=== PATIENT | male | born 1940 | race Caucasian/White ===

== ENCOUNTER 2018-05-04 09:05 | Outpatient (CLI) | payer MEDICARE, OTHER | END 2018-05-04 09:06 | disposition critical access hospital (66) | LOC: EMS 09:05 | PROVIDERS: ATTEND Surgery | DX: R53.1 Weakness (principal); R26.81 Unsteadiness on feet | CPT/HCPCS: A0425; A0429 ==

== ENCOUNTER 2018-05-04 09:19 | Inpatient (IN) | payer MEDICARE, OTHER ==
[2018-05-04] MEDS ORDERED: CARBIDOPA/LEVODOPA 25 MG/250 MG TABLET PO STA (10:15)
[2018-05-04] MEDS ORDERED: SODIUM CHLORIDE 0.9% 1,000 ML IV ONE (10:15)
--- NOTE | 2018-05-04 10:22 | ED Physician Documentation ---
History of Present Illness - Stated complaint Stated Complaint: AMS - Chief complaint Chief Complaint: General - History obtained from History obtained from: Patient, EMS - History of Present Illness Timing: How many days ago (5) - Additonal information Additional information: 77 year old male has Parkinson's and has recently been started on amantadine. He had some improvement in his symptoms with that and he started that about 1 month ago. He does not feel otherwise ill but he is not able to move around very well and had take the ambulance to the hospital today. History from the indicates he has not been feeling well for about one week and is now confused as well. Review of Systems Constitutional: denies: Fever, Chills Eyes: denies: Decreased vision Ears: denies: Ear pain Nose: denies: Rhinorrhea / runny nose, Congestion Throat: denies: Sore throat Cardiac: denies: Chest pain / pressure, Palpitations Respiratory: denies: Dyspnea, Cough GI: denies: Abdominal Pain, Nausea, Vomiting, Constipation, Diarrhea : denies: Dysuria, Frequency Skin: denies: Rash Musculoskeletal: denies: Neck pain, Back pain, Extremity pain Neurologic: reports: Generalized weakness. denies: Focal weakness, Numbness PD PAST MEDICAL HISTORY - Past Medical History Past Medical History: Yes Neuro: Parkinson's Endocrine/Autoimmune: Type 2 diabetes - Past Surgical History Past Surgical History: Yes General: Other - Present Medications Home Medications: Ambulatory Orders Medication Instructions Recorded Confirmed Amantadine HCl [Amantadine] 100 mg PO BID 05/04/18 05/04/18 Atorvastatin Calcium 40 mg PO DAILY 05/04/18 05/04/18 Insulin Glargine [Lantus Solostar] 9 units SQ DAILY 05/04/18 05/04/18 Insulin Lispro Protamin/Lispro 05/04/18 [Humalog Mix 75-25 Kwikpen] Methimazole [Tapazole] 20 mg PO BID 05/04/18 05/04/18 Valsartan 160 mg PO BID 05/04/18 05/04/18 metFORMIN [Glucophage] 500 mg PO BID 05/04/18 05/04/18 - Allergies Allergies/Adverse Reactions: Allergies Allergy/AdvReac Type Severity Reaction Status Date / Time No Known Drug Allergies Allergy Verified 05/04/18 09:29 - Social History Does the pt smoke?: No Smoking Status: Former smoker Does the pt drink ETOH?: No Does the pt have substance abuse?: No - Immunizations Immunizations are current?: Yes PD ED PE NORMAL - Vitals Vital signs reviewed: Yes (febrile and hypertensive ) - General General: Alert and oriented X 3, Well developed/nourished, Other (masked facies of parkinson's ) - HEENT HEENT: Atraumatic, PERRL, EOMI, Ears normal, Other (parched mucous membranes. ) - Neck Neck: Supple, no meningeal sign, No bony TTP - Cardiac Cardiac: RRR, Other (2/6 holosystolic murmer at LSB) - Respiratory Respiratory: No respiratory distress, Other (diminished breath sounds to right base. ) - Back Back: No CVA TTP, No spinal TTP - Derm Derm: Normal color, Warm and dry, No rash - Extremities Extremities: No deformity, No edema - Neuro Neuro: Alert and oriented X 3, corrective therapist 2-12 intact, No motor deficit, No sensory deficit, Normal speech, Other (There is obvious muscle rigidity consistent with Parkinson's. The finger to thumb is faster on the rigth. ) Eye Opening: Spontaneous Motor: Obeys Commands Verbal: Oriented GCS Score: 15 - Psych Psych: Normal mood, Normal affect Results - Vitals Vitals: Vital Signs - 24 hr 05/04/18 05/04/18 05/04/18 09:21 09:46 10:27 Temperature 37.6 C H Heart Rate 88 88 82 Respiratory 16 28 H 26 H Rate Blood Pressure 138/61 H 105/91 H 127/58 L O2 Saturation 96 96 97 Oxygen O2 Source Room air - EKG (time done) 1137 Rate: Rate (enter#) (80) Rhythm: NSR, LAE [place]: LAD Intervals: Prolonged [place] Ischemia: Q waves Compare to prior EKG: Old EKG unavailable Computer interpretation: Agree with computer - Labs Labs: Laboratory Tests 05/04/18 05/04/18 05/04/18 10:25 10:25 10:25 WBC 10.5 RBC 4.79 Hgb 15.9 Hct 46.2 MCV 96.4 H MCH 33.3 H MCHC 34.5 RDW 14.1 Plt Count 135 MPV 7.3 L Neut # (Auto) 9.4 H Lymph # (Auto) 0.4 L [place] # (Auto) 0.7 Eos # (Auto) 0.0 Baso # (Auto) 0.0 Absolute Nucleated RBC 0.00 Nucleated RBC % 0.0 Sodium 129 L Potassium 3.6 Chloride 101 Carbon Dioxide 21 Anion Gap 7.0 BUN 22 H Creatinine 0.8 Estimated GFR (MDRD) 94 Glucose 183 H Calcium 8.5 Total Bilirubin 1.3 H AST 40 ALT 54 Alkaline Phosphatase 63 Troponin I 0.09 Total Protein 7.1 Albumin 3.5 Globulin 3.6 Albumin/Globulin Ratio 1.0 Lipase 17 L - Rads (name of study) 2 veiw chest Radiology: Prelim report reviewed (Impression: 1. Minimal streaky opacity is in the bilateral lung bases with low lung planes, most consistent with solid segmental atelectasis. Early pneumonia or aspiration cannot be completely excluded. 2. trace pleural effusion seen on the lateral image, probably right- sided. 3. mild cardiomegaly.), EMP read indepedently, See rad report Procedures - IVC sono (time) 1010 Bedside IVC sono: IVC measures (cm) (0.97), IVC collapsed c insp (cm) (complete) , Dehydration (est 1.5-2 liter deficit) PD MEDICAL DECISION MAKING - ED course Complexity details: reviewed old records, reviewed results, re-evaluated patient , considered differential, d/w patient, d/w family ED course: 77-year-old male with a history of Parkinson's disease recently starting treatment has had an increase in his symptoms of dysmotility and he appears ill with a fever today and bibasilar infiltrate. He is administered a dose of Sinemet here in the emergency department with some improvement in his animation of movement but he is still a bit confused and has pneumonia. I have asked Dr. Meyer to put him into the hospital and he has graciously agreed to care for the patient - Sepsis Event Vital Signs: Vital Signs - 24 hr 05/04/18 05/04/18 05/04/18 09:21 09:46 10:27 Temperature 37.6 C H Heart Rate 88 88 82 Respiratory 16 28 H 26 H Rate Blood Pressure 138/61 H 105/91 H 127/58 L O2 Saturation 96 96 97 Oxygen O2 Source Room air Departure - Departure Disposition: [facility] DC/Xfer Clinical Impression: Parkinson's disease Pneumonia Qualifiers: Pneumonia type: due to unspecified organism Laterality: bilateral Lung location : lower lobe of lung Qualified Code(s): J18.1 - Lobar pneumonia, unspecified organism Condition: Fair
[2018-05-04 10:30] LABS: BASOPHILS % (AUTO) 0.2 %; EOSINOPHILS % (AUTO) 0.1 %; HGB - HEMOGLOBIN 15.9 g/dL (14.0-18.0); LYMPHOCYTES # (AUTO) 0.4 10^3/uL (1.5-3.5); LYMPHOCYTES % (AUTO) 3.9 %; MEAN CORPUSCULAR HEMOGLOBIN 33.3 pg (27.0-31.0); MEAN CORPUSCULAR HGB CONC 34.5 g/dL (32.0-36.0); MEAN CORPUSCULAR VOLUME 96.4 fL (80.0-94.0); MEAN PLATELET VOLUME 7.3 fL (7.4-11.4); MONOCYTES # (AUTO) 0.7 10^3/uL (0.0-1.0); MONOCYTES % (AUTO) 6.8 %; NEUTROPHILS # (AUTO) 9.4 10^3/uL (1.5-6.6); PLT - PLATELET COUNT 135 10^3/uL (130-450); RED BLOOD COUNT 4.79 10^6/uL (4.70-6.10); RED CELL DISTRIBUTION WIDTH 14.1 % (12.0-15.0); WHITE BLOOD COUNT 10.5 x10^3/uL (4.8-10.8)
[2018-05-04 10:43] LABS: ALBUMIN 3.5 g/dL (3.2-5.5); BILIRUBIN,TOTAL 1.3 mg/dL (0.2-1.0); CALCIUM 8.5 mg/dL (8.5-10.3); CREATININE 0.8 mg/dL (0.6-1.2); TOTAL PROTEIN 7.1 g/dL (6.7-8.2)
--- NOTE | 2018-05-04 11:21 | XRAY Report ---
Procedure Date: 05/04/2018 Accession Number: [id number] / [id number] Procedure: XR - Chest 2 View X-Ray CPT Code: 60712 FULL RESULT: EXAM: CHEST RADIOGRAPHY EXAM DATE: 05/04/2018 11:05 AM. CLINICAL HISTORY: Decreased air movement right base. COMPARISON: None. TECHNIQUE: 2 views. FINDINGS: Lungs/Pleura: There are minimal streaky opacities at the bilateral lung bases. There is a trace pleural effusion visible on the lateral image, probably right sided. There is a prominent accessory azygos fissure. No pneumothorax. Lung volumes are slightly low. Mediastinum: There is mild enlargement of the cardiomediastinal silhouette. Other: No acute osseous abnormality. There are mild degenerative disk changes the thoracic spine. IMPRESSION: 1. Minimal streaky opacities in the bilateral lung bases with low lung planes, most consistent with subsegmental atelectasis. Early pneumonia or aspiration cannot be completely excluded. 2. Trace pleural effusion seen on the lateral image, probably right-sided. 3. Mild cardiomegaly. RADIA
[2018-05-04] MEDS ORDERED: cefTRIAXone 1 GM in SODIUM CHLORIDE 0.9% MINIBAG 100 ML IV STA (11:51)
[2018-05-04] MEDS ORDERED: AZITHROMYCIN INJ 500 MG in SODIUM CHLORIDE 0.9% 250 ML IV STA (11:51)
[2018-05-04] MEDS ORDERED: PROCHLORPERAZINE 10 MG/2 ML VIAL IVP PRN (11:54)
[2018-05-04] MEDS ORDERED: ACETAMINOPHEN 325 MG TABLET PO PRN (11:54)
[2018-05-04] MEDS ORDERED: IBUPROFEN 400 MG TABLET PO PRN (11:54)
[2018-05-04] MEDS ORDERED: ONDANSETRON 4 MG/2 ML VIAL IVP PRN (11:54)
[2018-05-04] MEDS ORDERED: PROMETHAZINE 25 MG/1 ML VIAL IM PRN (11:54)
[2018-05-04] MEDS ORDERED: SODIUM CHLORIDE FLUSH 0.9% 10 ML SYRINGE IVP PRN (11:54)
[2018-05-04] MEDS ORDERED: IPRATROPIUM/ALBUTEROL 3 ML NEB INH PRN (11:54)
--- NOTE | 2018-05-04 12:05 | HISTORY & PHYSICAL EXAMINATION ---
Chief Complaint - Chief Complaint Chief Complaint: Confusion and weakness History of Present Illness - Admitted From Admitted From:: Emergency Department - History Obtained From Records Reviewed: Yes History obtained from: Patient and patients Exam Limitations: Patient confused and slow to answer looks to his for many answers - History of Present Illness HPI Comment/Other: Patient is a 77-year-old gentleman with a past medical history significant for insulin-dependent diabetes, hyperthyroidism secondary to Graves' disease, Parkinson's disease recently started on treatment 3-4 months ago, hypertension, hyperlipidemia and history of congestive heart failure who presented to the emergency department with a chief complaint of confusion and weakness. Patient was more alert and awake when I spoke with him however most of the history was provided by the patient's as the patient looked to his for answers to many of the questions that I asked him. The patient's states that the patient was in his normal state of health until 2 days ago. She states that normally the patient goes for a 45 minute walk every day however 2 days ago he did not get up and go for his normal walk. She states that she thought it may just be because it was so hot however she noticed that he was having difficulties standing up and she also noted that as the day progressed he was becoming increasingly confused. She states that in the evening when she would ask him a question he seemed to just stare at her blankly without answering. She thought that maybe with some sleep he would be better in the morning. She states that when they woke up this morning the patient continued to have confusion and had become less alert. She states that he was so weak that she could not get him up out of bed. At this point she decided to call 911. She states that when paramedics arrived 2 of them had to help him up out of bed when normally he is completely independent. She also states that the patient has had decreased appetite and decreased fluid intake over the last 2 days. The patient himself states that he did have a fever and has been having a mild cough the last couple of days. The patient denies any shortness of breath, chest pain, orthopnea, PND, increased lower extremity swelling. The patient does admit to having a runny nose last few days. Patient denies any headaches, blurred vision, sore throat, nasal congestion, difficulty swallowing, chills, palpitations, abdominal pain, nausea, vomiting, diarrhea, constipation, urinary urgency, urinary frequency, dysuria, joint pain , muscle aches, joint swelling, back pain, neck stiffness, recent unintentional weight loss, hair loss, skin rash or any focal neurologic deficits. On presentation to the emergency department the patient had a low-grade fever of 37.6 and initially remainder vital signs were within normal limits. However while patient was in the emergency department the patient's blood pressure did drop to 105/91 and patient became tachypneic and remained tachypneic during his time in the emergency department. The patient's blood pressure did improve. The patient remained on room air with good oxygen saturation. The patient's lab work revealed a sodium of 129 and a troponin of 0.09. The patient did not have any leukocytosis and urine analysis was negative. The patient's glucose was elevated at 183. The patient underwent a chest x-ray which revealed streaky opacities in bilateral lung bases concerning for early pneumonia. The patient's EKG showed normal sinus rhythm with Q waves in the inferior leads. In the emergency room the patient initially appeared to be very weak and poorly responsive. He was also very tremulous and showing signs of parkinsonism as he was very rigid. The patient was treated in the emergency department with 1 L of IV fluid, IV ceftriaxone and IV azithromycin for pneumonia as well as Sinemet for Parkinson's. The patient had significant improvement when he was in the emergency department and was admitted [facility] the [facility] for treatment of community-acquired pneumonia. History - Past Medical History Cardiovascular: reports: Congestive heart failure, Hypertension, High cholesterol Neuro: reports: Parkinson's Endocrine/Autoimmune: reports: Type 2 diabetes, HyPERthyroidism (Graves Disease) MRSA Hx?: No - Past Surgical History General: reports: Other - Family & Social History Family History: Mother: , Diabetes, Type 2, Father: , Brother: Diabetes, Type 2 Living arrangement: At home Living Situation: With spouse/s.o. 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 He is and him and his moved to [place], [place] about 32 years ago and moved to [place], [place] 13 years ago. The patient is retired. He and his have one son who lives in [place]. Recently the patient has developed Parkinson's which has slowed him down otherwise the patient was fully independent. His uses a wheelchair. The patient quit smoking 30 years ago prior to that he smoked 2 packs per day for almost 25 years. The patient is a former drinker but no longer drinks alcohol. He denies any illicit drug use. - POLST Patient has POLST: No POLST Status: Full Code Meds/Allgy - Home Medications Home Medications: Ambulatory Orders Medication Instructions Recorded Confirmed Amantadine HCl [Amantadine] 100 mg PO BID 05/04/18 05/04/18 Aspirin [Aspirin EC] 81 mg PO DAILY 05/04/18 05/04/18 Atorvastatin Calcium 40 mg PO DAILY 05/04/18 05/04/18 C,E,Zinc,Copper 11/Bnitg2g/Lut 1 each PO DAILY 05/04/18 05/04/18 [Ocuvite Adult 50 Plus Softgel] Insulin Glargine [Lantus Solostar] 9 units SQ DAILY 05/04/18 05/04/18 Insulin Lispro Protamin/Lispro 05/04/18 [Humalog Mix 75-25 Kwikpen] Methimazole [Tapazole] 20 mg PO BID 05/04/18 05/04/18 Multivitamin [Theragran] 1 each PO DAILY 05/04/18 05/04/18 Valsartan 160 mg PO BID 05/04/18 05/04/18 metFORMIN [Glucophage] 500 mg PO BID 05/04/18 05/04/18 - Allergies Allergies/Adverse Reactions: Allergies Allergy/AdvReac Type Severity Reaction Status Date / Time No Known Drug Allergies Allergy Verified 05/04/18 09:29 Review of Systems - Other Findings Other Findings: A comprehensive review of systems was performed the pertinent positives and negatives are stated above in the HPI and the remainder of the review of systems is negative. Exam - Vital Signs Reviewed Vital Signs: Yes Vital Signs: Vital Signs x48h Temp Pulse Resp BP Pulse Ox 05/04/18 12:02 85 30 H 128/61 97 05/04/18 10:27 82 26 H 127/58 L 97 05/04/18 09:46 88 28 H 105/91 H 96 05/04/18 09:21 37.6 C H 88 16 138/61 H 96 - Physical Exam General Appearance: positive: Alert, Mild distress (Tachypnic), Other (Mild tremor, appears a little rigid, blank stare at times.) Eyes Bilateral: positive: Normal inspection, PERRL, EOMI, No lid inflammation, Conjunctivae nml, No scleral icterus ENT: positive: ENT inspection nml, Pharynx nml, Dry mucous membranes. negative : Purulent nasal drainage, Pharyngeal erythema, Oral lesions Neck: positive: Nml inspection, Thyroid nml, No JVD, Trachea midline. negative : Thyromegaly, Lymphadenopathy (R), Lymphadenopathy (L), Stiff neck, Carotid bruit, Tracheal deviation Respiratory: positive: Chest non-tender, Rhonchi (Bases), Other (Tachypnic) Cardiovascular: positive: Regular rate & rhythm, No gallop, Systolic murmur Peripheral Pulses: positive: 2+ Abdomen: positive: Non-tender, No organomegaly, Nml bowel sounds, No distention. negative: Guarding, Rebound, Hepatomegaly Back: positive: Nml inspection. negative: CVA tenderness (R), CVA tenderness (L ) Skin: positive: Color nml, No rash, Warm. negative: Cyanosis, Diaphoresis, Pallor, Skin rash Extremities: positive: Non-tender, Nml appearance, No pedal edema, Other (Cog wheel rigidity) Neurologic/Psychiatric: positive: CN's nml (2-12), Motor nml, Sensation nml, Disoriented to place, Other (Tremor of upper extremities) Conclusion/Plan - Problem List (1) CAP (community acquired pneumonia) Conclusion/Plan: Patient presented with generalized weakness and altered level of consciousness. The patient had a low-grade fever on presentation and was tachypneic in the emergency department. On chest x-ray patient was found to have a bibasilar pneumonia and is being admitted for community-acquired pneumonia. The patient' s pneumonia severity index score is 116 which puts him at a risk class IV with a 8.2-9.3% mortality and based on the score hospitalization is recommended. Plan: Admit to the [facility] IV ceftriaxone and azithromycin Supplemental oxygen as needed Duo nebs as needed IV fluids Qualifiers: Laterality: unspecified laterality Qualified Code(s): J18.9 - Pneumonia, unspecified organism (2) Metabolic encephalopathy Conclusion/Plan: While at home and on initial presentation to the emergency department the patient had a decreased level of consciousness and was confused according to the . The patient did seem to have some improvement with IV fluids and IV antibiotics in the emergency department. Likely the patient has metabolic encephalopathy secondary to ongoing pneumonia. This will likely continue to improve and resolve with treatment of pneumonia and hydration. (3) Generalized weakness Conclusion/Plan: According to the patient's the patient went from baseline being ambulatory and walking 45 minutes a day to being unable to get up out of his bed on his own over the course of 2 days. This generalized weakness is likely secondary to his ongoing infection with pneumonia. There may also be some role from the patient's Parkinson's. For now we will treat the patient's pneumonia with IV antibiotics and IV fluids and monitor to see how patient responds. The patient will also be continued on his Parkinson's medications. The patient was given Sinemet in the emergency department and did seem to have some response to this. If the patient does continue to display parkinsonian type symptoms then we will need to consider adding Sinemet to his Parkinson's regimen. Plan: IV fluids IV antibiotics PT consult Continue Parkinson's meds (4) Hyponatremia Conclusion/Plan: Patient presented to the emergency department with generalized weakness and confusion. According to the patient's he has had decreased appetite and decreased fluid intake over the last few days. The patient has also been taking furosemide for recent diagnosis of CHF. On presentation the patient is hyponatremic with a sodium of 129. Patient appears to have hypovolemic hyponatremia and will be given IV fluids and we will monitor the patient's sodium. (5) Insulin dependent type 2 diabetes mellitus Conclusion/Plan: Patient has history of diabetes and is on insulin. On presentation the patient's blood glucose is elevated at 183. Plan: We will hold the patient's metformin while he is hospitalized We will continue him on his home dose of Lantus 9 units Patient be placed on sliding scale insulin Patient will be placed on a diabetic diet We will check a blood glucose before meals at bedtime Check hemoglobin A1c (6) Hypertension Conclusion/Plan: Patient has a history of hypertension and on presentation the patient's blood pressure was within normal limits but then patient did become mildly hypotensive in the emergency department. Given that the patient has ongoing infection and appears to be dehydrated we will hold his antihypertensive medications for now. We will continue to monitor the patient's blood pressure and titrate him back on to antihypertensives as needed. Qualifiers: Hypertension type: essential hypertension Qualified Code(s): I10 - Essential (primary) hypertension (7) Parkinson's disease Conclusion/Plan: The patient does have history of Parkinson's and has been on medications for the last 3-4 months. At home the patient takes amantadine but is not on Sinemet. On presentation to the emergency department the patient was showing significant symptoms of Parkinson's with rigidity and blank stare. The emergency room physician did give the patient 1 dose of Sinemet along with IV fluids and antibiotics the patient did have improvement in his symptoms. It is unclear if this was secondary to the Sinemet or if it was from the antibiotics and IV limits. For now the patient will continue to be treated with his home dose of amantadine. We will have a PT consult and continue to monitor the patient. The patient will likely need to follow-up as an outpatient for further management. (8) Hyperthyroidism Conclusion/Plan: The patient has a history of Graves' disease and takes methimazole at home. While the patient is hospitalized we will continue him on his home dose of methimazole. We will also check a TSH. (9) Hyperlipidemia Conclusion/Plan: Patient is a history of hyperlipidemia and will be continued on Lipitor while he is hospitalized. Qualifiers: Hyperlipidemia type: unspecified Qualified Code(s): E78.5 - Hyperlipidemia , unspecified - Lab Results Lab results reviewed: Yes Octavio Bones: 05/04/18 10:25 05/04/18 10:25 - Diagnostic Imaging Results Diagnostic Imaging Results: positive: Final report reviewed Diagnostic Imaging Results Comments: Chest x-ray Impression: 1. Minimal streaky opacities in the bilateral lung bases with low lung planes, most consistent with sub-segmental atelectasis. Early pneumonia or aspiration cannot be completely excluded. 2. Trace pleural effusion seen on the lateral image, probably right-sided. 3. Mild cardiomegaly - EKG Results EKG Interpreted Independently: Yes Core Measures - Anticipated LOS I expect patient to be DC'd or transferred within 96 hours.: Yes - DVT/VTE - Prophylaxis VTE/DVT Prophylaxis med ordered at admit?: Yes
[2018-05-04 13:29] LABS: BILIRUBIN,URINE NEGATIVE (NEGATIVE); CLARITY,URINE CLEAR (CLEAR); GLUCOSE, URINE (UA) 100 mg/dL (NEGATIVE); KETONES,URINE (UA) 15 mg/dL (NEGATIVE); LEUKOCYTE ESTERASE, URINE NEGATIVE (NEGATIVE); NITRITE,URINE NEGATIVE (NEGATIVE); OCCULT BLOOD,URINE MODERATE (NEGATIVE); PROTEIN,URINE TRACE mg/dL (NEGATIVE); UROBILINOGEN,URINE 0.2 (NORMAL) E.U./dL (NORMAL)
[2018-05-04 13:53] LABS: BACTERIA,URINE Rare /HPF (None Seen); RBC,URINE 0-5 /HPF (0-5); SQUAMOUS EPITHELIAL CELL,UR NONE SEEN (<= Few)
[2018-05-04] MEDS: SODIUM CHLORIDE 0.9% 1,000 ML IV SCH (14:10)
[2018-05-04] MEDS: SODIUM CHLORIDE FLUSH 0.9% 10 ML SYRINGE IVP SCH (15:41)
[2018-05-04] MEDS: SACCHAROMYCES BOULARDII 250 MG CAPSULE PO SCH (17:28)
[2018-05-04] MEDS: INSULIN ASPART 300 UNIT/3 ML PEN SUBQ SCH ×2 (17:28→21:24)
[2018-05-04] MEDS: AMANTADINE 100 MG CAPSULE PO SCH (21:24)
[2018-05-04] MEDS: ATORVASTATIN 40 MG TABLET PO SCH (21:24)
[2018-05-04] MEDS: methIMAzole 5 MG TABLET PO SCH (21:24)
[2018-05-05] MEDS: SODIUM CHLORIDE 0.9% 1,000 ML IV SCH (00:09)
[2018-05-05] MEDS: SODIUM CHLORIDE FLUSH 0.9% 10 ML SYRINGE IVP SCH ×3 (00:12→17:23)
[2018-05-05 05:47] LABS: BASOPHILS % (AUTO) 0.3 %; EOSINOPHILS % (AUTO) 0.3 %; HGB - HEMOGLOBIN 14.9 g/dL (14.0-18.0); LYMPHOCYTES # (AUTO) 0.5 10^3/uL (1.5-3.5); LYMPHOCYTES % (AUTO) 8.5 %; MEAN CORPUSCULAR HEMOGLOBIN 33.9 pg (27.0-31.0); MEAN CORPUSCULAR VOLUME 99.8 fL (80.0-94.0); MEAN PLATELET VOLUME 7.5 fL (7.4-11.4); MONOCYTES # (AUTO) 0.6 10^3/uL (0.0-1.0); MONOCYTES % (AUTO) 10.5 %; NEUTROPHILS % (AUTO) 80.4 %; PLT - PLATELET COUNT 112 10^3/uL (130-450); RED BLOOD COUNT 4.39 10^6/uL (4.70-6.10); RED CELL DISTRIBUTION WIDTH 14.2 % (12.0-15.0); WHITE BLOOD COUNT 6.2 x10^3/uL (4.8-10.8)
[2018-05-05 05:51] LABS: CALCIUM 7.7 mg/dL (8.5-10.3); CREATININE 0.8 mg/dL (0.6-1.2)
[2018-05-05 06:27] LABS: HB2 TOTAL 16.2 g/dL; HEMOGLOBIN A1C 0.76 g/dL; HEMOGLOBIN A1C % 6.4 % (4.6-6.2)
[2018-05-05] MEDS: POLYETHYLENE GLYCOL 3350 17 GM PACKET PO SCH (07:54)
[2018-05-05] MEDS: AMANTADINE 100 MG CAPSULE PO SCH ×2 (08:47→22:17)
[2018-05-05] MEDS: methIMAzole 5 MG TABLET PO SCH ×2 (08:47→22:17)
[2018-05-05] MEDS: SACCHAROMYCES BOULARDII 250 MG CAPSULE PO SCH ×2 (08:48→17:24)
[2018-05-05] MEDS: ENOXAPARIN 40 MG/0.4 ML SYRINGE SUBQ SCH (08:48)
[2018-05-05] MEDS: FAMOTIDINE 20 MG TABLET PO SCH (08:48)
[2018-05-05] MEDS: INSULIN GLARGINE 300 UNIT/3 ML PEN SUBQ SCH (08:48)
[2018-05-05] MEDS: INSULIN ASPART 300 UNIT/3 ML PEN SUBQ SCH ×4 (08:49→22:17)
[2018-05-05] MEDS: AZITHROMYCIN INJ 500 MG in SODIUM CHLORIDE 0.9% 250 ML IV SCH (08:50)
[2018-05-05] MEDS: cefTRIAXone 2 GM in SODIUM CHLORIDE 0.9% MINIBAG 100 ML IV SCH (10:05)
--- NOTE | 2018-05-05 16:42 | PROVIDER PROGRESS NOTE ---
Assessment/Plan - Problem List (1) CAP (community acquired pneumonia) Qualifiers: Laterality: unspecified laterality Qualified Code(s): J18.9 - Pneumonia, unspecified organism Assessment/Plan: No sputum was produced to collect for microbiology, before antibiotics were started and cough has diminished. Continue empiric iv Ceftriaxone and iv Zithromax. Follow WBC. (2) Generalized weakness Assessment/Plan: Improved, Pt was able to get OOB with stand-by assistance today. Continue hydration and treatment of pneumonia. (3) Insulin dependent type 2 diabetes mellitus Assessment/Plan: Continue carb-controlled diet, POC glu checks and ss Insulin and off Glucophage while here. (4) Parkinson's disease Assessment/Plan: Continue anti-Parkinson's meds. (5) CHF due to valvular disease Assessment/Plan: Echo done today shows a hyperdynamic LVEF of 70% and severe mitral regurgitation and MVP is seen. The patient and both tell me that he has been seen by a Property Field Inspector and is scheduled to have cardiac catheterization in early May and possibly what sounds like a Celina-Clip procedure, in [place]. Will resume the ARB but at a lower dose, since his BP is not hypertensive and low BP may have added to the weakness. (6) Hyperthyroidism Assessment/Plan: Continue anti-thyroid med (Tapazole). (7) Hyponatremia Assessment/Plan: Resolved with NS iv fluid and stopping diuretic. (8) Metabolic encephalopathy Assessment/Plan: Resolved. It was likely due to infection. - Current Meds Current Meds: Current Medications Generic Name Dose Route Start Last Admin Trade Name Freq PRN Reason Stop Dose Admin Acetaminophen 650 mg 05/04/18 11:54 05/04/18 21:23 Tylenol PO 650 mg Q4HR PRN Administration Pain 1 to 4 Amantadine HCl 100 mg 05/04/18 21:00 05/05/18 08:47 Symmetrel PO 100 mg BID ERIN Administration Atorvastatin Calcium 40 mg 05/04/18 21:00 05/04/18 21:24 Lipitor PO 40 mg QPM ERIN Administration Enoxaparin Sodium 40 mg 05/05/18 09:00 05/05/18 08:48 Lovenox SUBQ 40 mg DAILY ERIN Administration Famotidine 20 mg 05/05/18 09:00 05/05/18 08:48 Pepcid PO 20 mg DAILY ERIN Administration Azithromycin 500 mg/ Sodium 250 mls @ 250 mls/hr 05/05/18 09:00 05/05/18 10: 05 Chloride IV Infused DAILY ERIN Infusion Ceftriaxone Sodium 2 gm/ 100 mls @ 200 mls/hr 05/05/18 09:00 05/05/18 10:35 Sodium Chloride IV Infused DAILY ERIN Infusion Ibuprofen 400 mg 05/04/18 11:54 05/04/18 22:48 Motrin PO 400 mg Q4HR PRN Administration Pain 1 to 4 Insulin Aspart 1 - 5 unit 05/04/18 17:00 05/05/18 12:03 Novolog SUBQ 2 unit 0800,1200,1700,2100 ERIN Administration Protocol Insulin Glargine 9 unit 05/05/18 08:00 05/05/18 08:48 Lantus Solostar SUBQ 9 unit QDBREAKFAST ERIN Administration Methimazole 20 mg 05/04/18 21:00 05/05/18 08:47 Tapazole PO 20 mg BID ERIN Administration Polyethylene Glycol 17 gm 05/05/18 09:00 05/05/18 07:54 Miralax PO Not Given DAILY ERIN Saccharomyces Boulardii 250 mg 05/04/18 17:00 05/05/18 08:48 Florastor PO 250 mg BIDWM ERIN Administration Sodium Chloride 10 ml 05/04/18 17:00 05/05/18 07:16 Normal Saline Flush 0.9% IVP Not Given 0100,0900,1700 ERIN - Lab Result Fish Bone Diagrams: 05/05/18 05:14 05/05/18 05:14 Subjective - Subjective Patient Reports: Feeling Better, Resting Comfortably Objective Vital Signs: Vital Signs - 24 hr 05/04/18 05/04/18 05/05/18 21:18 22:05 00:00 Temperature 38.2 C H 37.9 C H 36.9 C Heart Rate Heart Rate [ 95 Apical] Heart Rate [ 73 Brachial] Heart Rate [ Sitting] Heart Rate [ Supine] Respiratory 20 18 Rate Blood Pressure 129/67 106/54 L [Right Brachial artery] Blood Pressure [Sitting] Blood Pressure [Supine] O2 Saturation 99 98 05/05/18 05/05/18 05/05/18 08:43 10:30 15:31 Temperature 36.7 C 36.6 C Heart Rate Heart Rate [ Apical] Heart Rate [ 79 94 Brachial] Heart Rate [ 85 Sitting] Heart Rate [ 80 Supine] Respiratory 18 24 Rate Blood Pressure 113/49 L 143/66 H [Right Brachial artery] Blood Pressure 123/89 H [Sitting] Blood Pressure 111/55 L [Supine] O2 Saturation 99 98 05/05/18 16:31 Temperature Heart Rate 76 Heart Rate [ Apical] Heart Rate [ Brachial] Heart Rate [ Sitting] Heart Rate [ Supine] Respiratory 18 Rate Blood Pressure [Right Brachial artery] Blood Pressure [Sitting] Blood Pressure [Supine] O2 Saturation Oxygen O2 Source Room air I&O (Last 24 Hrs): Intake and Output Totals x24h 05/03/18 05/04/18 05/05/18 23:59 23:59 23:59 Intake Total 1800 2788.333 Output Total 250 675 Balance 1550 2113.333 General: Oriented x3 HEENT: Mucous membr. moist/pink Neck: Supple, No JVD Neuro: Other (Flat affect, hands tremulous, body stiff) Cardiovascular: Regular rate, Other (Harsh 3/6 pansystolic murmur at apex, radiates throughout precordium. No gallop) Abdomen: Normal bowel sounds, Soft Extremities: No edema - Results Results: Laboratory Results WBC 6.2 x10^3/uL (4.8-10.8) 05/05/18 05:14 RBC 4.39 10^6/uL (4.70-6.10) L 05/05/18 05:14 Hgb 14.9 g/dL (14.0-18.0) 05/05/18 05:14 Hct 43.8 % (42.0-52.0) 05/05/18 05:14 MCV 99.8 fL (80.0-94.0) H 05/05/18 05:14 MCH 33.9 pg (27.0-31.0) H 05/05/18 05:14 MCHC 34.0 g/dL (32.0-36.0) 05/05/18 05:14 RDW 14.2 % (12.0-15.0) 05/05/18 05:14 Plt Count 112 10^3/uL (130-450) L 05/05/18 05:14 MPV 7.5 fL (7.4-11.4) 05/05/18 05:14 Neut # (Auto) 5.0 10^3/uL (1.5-6.6) 05/05/18 05:14 Lymph # (Auto) 0.5 10^3/uL (1.5-3.5) L 05/05/18 05:14 [place] # (Auto) 0.6 10^3/uL (0.0-1.0) 05/05/18 05:14 Eos # (Auto) 0.0 10^3/uL (0.0-0.7) 05/05/18 05:14 Baso # (Auto) 0.0 10^3/uL (0.0-0.1) 05/05/18 05:14 Absolute Nucleated RBC 0.00 x10^3/uL 05/05/18 05:14 Nucleated RBC % 0.1 /100WBC 05/05/18 05:14 Sodium 135 mmol/L (135-145) 05/05/18 05:14 Potassium 3.9 mmol/L (3.5-5.0) 05/05/18 05:14 Chloride 104 mmol/L (101-111) 05/05/18 05:14 Carbon Dioxide 25 mmol/L (21-32) 05/05/18 05:14 Anion Gap 6.0 (6-13) 05/05/18 05:14 BUN 21 mg/dL (6-20) H 05/05/18 05:14 Creatinine 0.8 mg/dL (0.6-1.2) 05/05/18 05:14 Estimated GFR (MDRD) 94 (>89) 05/05/18 05:14 Glucose 167 mg/dL (70-100) H 05/05/18 05:14 POC Whole Bld Glucose 204 mg/dL (70 - 100) H 05/05/18 11:35 Glycated Hemoglobin 6.4 % (4.6-6.2) H 05/05/18 05:14 Estim Average Glucose 137 (70-100) H 05/05/18 05:14 Calcium 7.7 mg/dL (8.5-10.3) L 05/05/18 05:14 Total Bilirubin 1.3 mg/dL (0.2-1.0) H 05/04/18 10:25 AST 40 IU/L (10-42) 05/04/18 10:25 ALT 54 IU/L (10-60) 05/04/18 10:25 Alkaline Phosphatase 63 IU/L (42-121) 05/04/18 10:25 Troponin I 0.09 ng/mL (<0.49) 05/04/18 10:25 Total Protein 7.1 g/dL (6.7-8.2) 05/04/18 10:25 Albumin 3.5 g/dL (3.2-5.5) 05/04/18 10:25 Globulin 3.6 g/dL (2.1-4.2) 05/04/18 10:25 Albumin/Globulin Ratio 1.0 (1.0-2.2) 05/04/18 10:25 Lipase 17 U/L (22-51) L 05/04/18 10:25 TSH 0.18 uIU/mL (0.34-5.60) L 05/05/18 05:14 Urine Color YELLOW 05/04/18 13:00 Urine Clarity CLEAR (CLEAR) 05/04/18 13:00 Urine pH 6.0 PH (5.0-7.5) 05/04/18 13:00 Ur Specific [place] >=1.030 (1.002-1.030) H 05/04/18 13:00 Urine Protein TRACE mg/dL (NEGATIVE) 05/04/18 13:00 Urine Glucose (UA) 100 mg/dL (NEGATIVE) H 05/04/18 13:00 Urine Ketones 15 mg/dL (NEGATIVE) H 05/04/18 13:00 Urine Occult Blood MODERATE (NEGATIVE) H 05/04/18 13:00 Urine Nitrite NEGATIVE (NEGATIVE) 05/04/18 13:00 Urine Bilirubin NEGATIVE (NEGATIVE) 05/04/18 13:00 Urine Urobilinogen 0.2 (NORMAL) E.U./dL (NORMAL) 05/04/18 13:00 Ur Leukocyte Esterase NEGATIVE (NEGATIVE) 05/04/18 13:00 Urine RBC 0-5 /HPF (0-5) 05/04/18 13:00 Urine WBC 0-3 /HPF (0-3) 05/04/18 13:00 Ur Squamous Epith Cells NONE SEEN (<= Few) 05/04/18 13:00 Urine Bacteria Rare /HPF (None Seen) 05/04/18 13:00 Ur Microscopic Review INDICATED 05/04/18 13:00 Urine Culture Comments NOT INDICATED 05/04/18 13:00
[2018-05-05] MEDS ORDERED: VALSARTAN 160 MG PO SCH (21:00)
[2018-05-05] MEDS: ATORVASTATIN 40 MG TABLET PO SCH (22:17)
[2018-05-06 05:29] LABS: CALCIUM 7.8 mg/dL (8.5-10.3); CREATININE 0.8 mg/dL (0.6-1.2)
[2018-05-06 05:30] LABS: BASOPHILS % (AUTO) 0.3 %; EOSINOPHILS % (AUTO) 0.1 %; HGB - HEMOGLOBIN 15.6 g/dL (14.0-18.0); LYMPHOCYTES % (AUTO) 13.3 %; MEAN CORPUSCULAR HEMOGLOBIN 33.2 pg (27.0-31.0); MEAN CORPUSCULAR HGB CONC 33.9 g/dL (32.0-36.0); MEAN CORPUSCULAR VOLUME 97.9 fL (80.0-94.0); MEAN PLATELET VOLUME 7.9 fL (7.4-11.4); MONOCYTES # (AUTO) 0.8 10^3/uL (0.0-1.0); NEUTROPHILS # (AUTO) 5.5 10^3/uL (1.5-6.6); NEUTROPHILS % (AUTO) 75.3 %; PLT - PLATELET COUNT 131 10^3/uL (130-450); RED BLOOD COUNT 4.71 10^6/uL (4.70-6.10); RED CELL DISTRIBUTION WIDTH 14.3 % (12.0-15.0); WHITE BLOOD COUNT 7.2 x10^3/uL (4.8-10.8)
[2018-05-06] MEDS: SODIUM CHLORIDE FLUSH 0.9% 10 ML SYRINGE IVP SCH ×4 (07:16→23:58)
[2018-05-06] MEDS: INSULIN ASPART 300 UNIT/3 ML PEN SUBQ SCH ×4 (08:14→20:36)
[2018-05-06] MEDS: INSULIN GLARGINE 300 UNIT/3 ML PEN SUBQ SCH (08:14)
[2018-05-06] MEDS: MULTIVITAMIN TABLET PO SCH (09:50)
[2018-05-06] MEDS: SACCHAROMYCES BOULARDII 250 MG CAPSULE PO SCH ×2 (09:50→16:12)
[2018-05-06] MEDS: FAMOTIDINE 20 MG TABLET PO SCH (09:50)
[2018-05-06] MEDS: methIMAzole 5 MG TABLET PO SCH ×2 (09:50→20:35)
[2018-05-06] MEDS: ASPIRIN EC 81 MG TABLET PO SCH (09:50)
[2018-05-06] MEDS: AMANTADINE 100 MG CAPSULE PO SCH ×2 (09:50→20:35)
[2018-05-06] MEDS: LOSARTAN 50 MG TABLET PO SCH (09:50)
[2018-05-06] MEDS: cefTRIAXone 2 GM in SODIUM CHLORIDE 0.9% MINIBAG 100 ML IV SCH (09:51)
[2018-05-06] MEDS: ENOXAPARIN 40 MG/0.4 ML SYRINGE SUBQ SCH (09:51)
[2018-05-06] MEDS: POLYETHYLENE GLYCOL 3350 17 GM PACKET PO SCH (09:52)
[2018-05-06] MEDS: AZITHROMYCIN INJ 500 MG in SODIUM CHLORIDE 0.9% 250 ML IV SCH (11:00)
[2018-05-06] MEDS ORDERED: POTASSIUM CHLOR 10 MEQ/100 ML 10 MEQ/100 ML BAG IV ONE ×2 (12:15→14:15)
--- NOTE | 2018-05-06 12:47 | PROVIDER PROGRESS NOTE ---
Assessment/Plan - Problem List (1) CAP (community acquired pneumonia) Qualifiers: Laterality: unspecified laterality Qualified Code(s): J18.9 - Pneumonia, unspecified organism Assessment/Plan: RR is high and may have been abnormal yesterday, and not as charted. WBC lorraine since yesterday. Continue iv antibiotics. Will order a swallowing eval to check for asoiration and recheck a CXR. Pt not stable for DCh today. (2) CHF due to valvular disease Assessment/Plan: CXR re-check today showed more CHF. Will start daily po Spironolactone. (3) Generalized weakness Assessment/Plan: Patient is "at high risk of falls", per PT seeing the patient today. This could be residual from his infection or due to Parkinsons or due to orthostasis from autonomic dysfunction that accompanies Parkinson's disease. Will order daily postural VS checks. He may need to be DCh to a SNF for PT. (4) Insulin dependent type 2 diabetes mellitus Assessment/Plan: Continue carb-controlled diet, ss Insulin coverage for fingerstick glu checks. (5) Parkinson's disease Assessment/Plan: Continue his anti-Parkinsonian meds. Postural VS checks daily to be done to check for autonomic dysfunction, given his "high risk for falls" per PT. Will also order an OT eval. (6) Hyperthyroidism Assessment/Plan: Continue Tapazole treatment. (7) Hyponatremia Assessment/Plan: Improved after 2L of iv Normal Saline fluids since admission. Continue to monitor daily BMP. (8) Hypokalemia Assessment/Plan: This could be due to hemodilution, as 2L of NS hydration since admission. Will replace with K riders. Monitor daily BMP. (9) Metabolic encephalopathy Assessment/Plan: Resolved. - Current Meds Current Meds: Current Medications Generic Name Dose Route Start Last Admin Trade Name Freq PRN Reason Stop Dose Admin Acetaminophen 650 mg 05/04/18 11:54 05/04/18 21:23 Tylenol PO 650 mg Q4HR PRN Administration Pain 1 to 4 Amantadine HCl 100 mg 05/04/18 21:00 05/06/18 09:50 Symmetrel PO 100 mg BID ERIN Administration Aspirin 81 mg 05/06/18 09:00 05/06/18 09:50 Ecotrin PO 81 mg DAILY ERIN Administration Atorvastatin Calcium 40 mg 05/04/18 21:00 05/05/18 22:17 Lipitor PO 40 mg QPM ERIN Administration Enoxaparin Sodium 40 mg 05/05/18 09:00 05/06/18 09:51 Lovenox SUBQ 40 mg DAILY ERIN Administration Famotidine 20 mg 05/05/18 09:00 05/06/18 09:50 Pepcid PO 20 mg DAILY ERIN Administration Azithromycin 500 mg/ Sodium 250 mls @ 250 mls/hr 05/05/18 09:00 05/06/18 12: 00 Chloride IV Infused DAILY ERIN Infusion Ceftriaxone Sodium 2 gm/ 100 mls @ 200 mls/hr 05/05/18 09:00 05/06/18 11:00 Sodium Chloride IV Infused DAILY ERIN Infusion Ibuprofen 400 mg 05/04/18 11:54 05/04/18 22:48 Motrin PO 400 mg Q4HR PRN Administration Pain 1 to 4 Insulin Aspart 1 - 5 unit 05/04/18 17:00 05/06/18 12:06 Novolog SUBQ 1 unit 0800,1200,1700,2100 ERIN Administration Protocol Insulin Glargine 9 unit 05/05/18 08:00 05/06/18 08:14 Lantus Solostar SUBQ 9 unit QDBREAKFAST ERIN Administration Losartan Potassium 50 mg 05/06/18 09:00 05/06/18 09:50 Cozaar PO 50 mg DAILY ERIN Administration Methimazole 20 mg 05/04/18 21:00 05/06/18 09:50 Tapazole PO 20 mg BID ERIN Administration Multivitamins 1 tab 05/06/18 09:00 05/06/18 09:50 Theragran PO 1 tab DAILY ERIN Administration Polyethylene Glycol 17 gm 05/05/18 09:00 05/06/18 09:52 Miralax PO Not Given DAILY ERIN Saccharomyces Boulardii 250 mg 05/04/18 17:00 05/06/18 09:50 Florastor PO 250 mg BIDWM ERIN Administration Sodium Chloride 10 ml 05/04/18 17:00 05/06/18 09:52 Normal Saline Flush 0.9% IVP 10 ml 0100,0900,1700 ERIN Administration - Lab Result Fish Bone Diagrams: 05/06/18 04:40 05/06/18 04:40 - Additional Planning My Orders: My Active Orders 05/06/18 Clinical Swallow Evaluation [ST] Routine 05/06/18 09:00 Aspirin EC [Ecotrin] 81 mg PO DAILY Losartan [Cozaar] 50 mg PO DAILY Multivitamin [Theragran] 1 tab PO DAILY 05/06/18 12:15 Potassium Chlor 10 Meq/100 ml [Potassium Chloride] 10 meq in 100 ml IV ONCE 05/06/18 14:15 Potassium Chlor 10 Meq/100 ml [Potassium Chloride] 10 meq in 100 ml IV ONCE Subjective - Subjective Patient Reports: Feeling Better, Resting Comfortably Nursing Reports: Other (Still tachypneic at 30's, PT tried walking him and he is "at high risk of falls".) Objective Vital Signs: Vital Signs - 24 hr 05/05/18 05/05/18 05/05/18 15:31 16:31 22:05 Temperature 36.6 C Heart Rate 76 94 Heart Rate [ 94 Brachial] Respiratory 24 18 18 Rate Blood Pressure 143/66 H [Right Brachial artery] O2 Saturation 98 05/06/18 05/06/18 05/06/18 00:00 07:32 09:55 Temperature 37.0 C 36.6 C Heart Rate 89 Heart Rate [ 105 H 95 Brachial] Respiratory 18 19 32 H Rate Blood Pressure 156/83 H 134/67 H [Right Brachial artery] O2 Saturation 97 94 Oxygen O2 Source Room air I&O (Last 24 Hrs): Intake and Output Totals x24h 05/04/18 05/05/18 05/06/18 23:59 23:59 23:59 Intake Total 1800 3538.333 530 Output Total 250 850 125 Balance 1550 2688.333 405 General: Alert, Oriented x3, Other (Flat affect and facies) HEENT: Mucous membr. moist/pink Neck: Supple Neuro: Other (Tardykinesis, no resting hand tremor noted today.) Cardiovascular: Regular rate, Other (3/6 murmur.) Respiratory: Breath sounds nml Abdomen: Soft Extremities: No edema - Results Results: Laboratory Results WBC 7.2 x10^3/uL (4.8-10.8) 05/06/18 04:40 RBC 4.71 10^6/uL (4.70-6.10) 05/06/18 04:40 Hgb 15.6 g/dL (14.0-18.0) 05/06/18 04:40 Hct 46.1 % (42.0-52.0) 05/06/18 04:40 MCV 97.9 fL (80.0-94.0) H 05/06/18 04:40 MCH 33.2 pg (27.0-31.0) H 05/06/18 04:40 MCHC 33.9 g/dL (32.0-36.0) 05/06/18 04:40 RDW 14.3 % (12.0-15.0) 05/06/18 04:40 Plt Count 131 10^3/uL (130-450) 05/06/18 04:40 MPV 7.9 fL (7.4-11.4) 05/06/18 04:40 Neut # (Auto) 5.5 10^3/uL (1.5-6.6) 05/06/18 04:40 Lymph # (Auto) 1.0 10^3/uL (1.5-3.5) L 05/06/18 04:40 [place] # (Auto) 0.8 10^3/uL (0.0-1.0) 05/06/18 04:40 Eos # (Auto) 0.0 10^3/uL (0.0-0.7) 05/06/18 04:40 Baso # (Auto) 0.0 10^3/uL (0.0-0.1) 05/06/18 04:40 Absolute Nucleated RBC 0.00 x10^3/uL 05/06/18 04:40 Nucleated RBC % 0.0 /100WBC 05/06/18 04:40 Sodium 134 mmol/L (135-145) L 05/06/18 04:40 Potassium 3.1 mmol/L (3.5-5.0) L 05/06/18 04:40 Chloride 101 mmol/L (101-111) 05/06/18 04:40 Carbon Dioxide 23 mmol/L (21-32) 05/06/18 04:40 Anion Gap 10.0 (6-13) 05/06/18 04:40 BUN 20 mg/dL (6-20) 05/06/18 04:40 Creatinine 0.8 mg/dL (0.6-1.2) 05/06/18 04:40 Estimated GFR (MDRD) 94 (>89) 05/06/18 04:40 Glucose 151 mg/dL (70-100) H 05/06/18 04:40 POC Whole Bld Glucose 184 mg/dL (70 - 100) H 05/06/18 11:57 Glycated Hemoglobin 6.4 % (4.6-6.2) H 05/05/18 05:14 Estim Average Glucose 137 (70-100) H 05/05/18 05:14 Calcium 7.8 mg/dL (8.5-10.3) L 05/06/18 04:40 Total Bilirubin 1.3 mg/dL (0.2-1.0) H 05/04/18 10:25 AST 40 IU/L (10-42) 05/04/18 10:25 ALT 54 IU/L (10-60) 05/04/18 10:25 Alkaline Phosphatase 63 IU/L (42-121) 05/04/18 10:25 Troponin I 0.09 ng/mL (<0.49) 05/04/18 10:25 Total Protein 7.1 g/dL (6.7-8.2) 05/04/18 10:25 Albumin 3.5 g/dL (3.2-5.5) 05/04/18 10:25 Globulin 3.6 g/dL (2.1-4.2) 05/04/18 10:25 Albumin/Globulin Ratio 1.0 (1.0-2.2) 05/04/18 10:25 Lipase 17 U/L (22-51) L 05/04/18 10:25 TSH 0.18 uIU/mL (0.34-5.60) L 05/05/18 05:14 Urine Color YELLOW 05/04/18 13:00 Urine Clarity CLEAR (CLEAR) 05/04/18 13:00 Urine pH 6.0 PH (5.0-7.5) 05/04/18 13:00 Ur Specific [place] >=1.030 (1.002-1.030) H 05/04/18 13:00 Urine Protein TRACE mg/dL (NEGATIVE) 05/04/18 13:00 Urine Glucose (UA) 100 mg/dL (NEGATIVE) H 05/04/18 13:00 Urine Ketones 15 mg/dL (NEGATIVE) H 05/04/18 13:00 Urine Occult Blood MODERATE (NEGATIVE) H 05/04/18 13:00 Urine Nitrite NEGATIVE (NEGATIVE) 05/04/18 13:00 Urine Bilirubin NEGATIVE (NEGATIVE) 05/04/18 13:00 Urine Urobilinogen 0.2 (NORMAL) E.U./dL (NORMAL) 05/04/18 13:00 Ur Leukocyte Esterase NEGATIVE (NEGATIVE) 05/04/18 13:00 Urine RBC 0-5 /HPF (0-5) 05/04/18 13:00 Urine WBC 0-3 /HPF (0-3) 05/04/18 13:00 Ur Squamous Epith Cells NONE SEEN (<= Few) 05/04/18 13:00 Urine Bacteria Rare /HPF (None Seen) 05/04/18 13:00 Ur Microscopic Review INDICATED 05/04/18 13:00 Urine Culture Comments NOT INDICATED 05/04/18 13:00 ABX Reporting Has patient been on IV antibiotics over the past 48 hours?: Yes
--- NOTE | 2018-05-06 13:47 | XRAY Report ---
Procedure Date: 05/06/2018 Accession Number: [id number] / [id number] Procedure: XR - Chest 1 View X-Ray CPT Code: 91849 FULL RESULT: EXAM: Chest 1 View X-Ray DATE: 05/06/2018 1:14 PM CLINICAL HISTORY: CHF vs pneumonia COMPARISON: Chest radiograph 05/04/2018. TECHNIQUE: Single view of the chest. FINDINGS: Cardiomegaly persists. Evaluation of the mediastinal silhouette is limited by rotation and portable technique. Bibasilar opacities persist, possibly unchanged given differences in technique. These most likely represent accommodation of airspace disease and pleural effusions. IMPRESSION: Bibasilar opacities likely with components of effusion. While pneumonia in these areas is not excluded, the symmetric finding combined with cardiomegaly favors heart failure. RADIA
[2018-05-06] MEDS: SPIRONOLACTONE 25 MG TABLET PO SCH (14:53)
[2018-05-06] MEDS: ATORVASTATIN 40 MG TABLET PO SCH (20:35)
[2018-05-07 04:53] LABS: BASOPHILS % (AUTO) 0.4 %; EOSINOPHILS # (AUTO) 0.1 10^3/uL (0.0-0.7); EOSINOPHILS % (AUTO) 1.6 %; HGB - HEMOGLOBIN 15.2 g/dL (14.0-18.0); LYMPHOCYTES # (AUTO) 0.9 10^3/uL (1.5-3.5); LYMPHOCYTES % (AUTO) 15.2 %; MEAN CORPUSCULAR HEMOGLOBIN 32.9 pg (27.0-31.0); MEAN CORPUSCULAR HGB CONC 33.4 g/dL (32.0-36.0); MEAN CORPUSCULAR VOLUME 98.6 fL (80.0-94.0); MEAN PLATELET VOLUME 7.7 fL (7.4-11.4); MONOCYTES # (AUTO) 0.6 10^3/uL (0.0-1.0); MONOCYTES % (AUTO) 9.7 %; NEUTROPHILS # (AUTO) 4.4 10^3/uL (1.5-6.6); NEUTROPHILS % (AUTO) 73.1 %; PLT - PLATELET COUNT 132 10^3/uL (130-450); RED BLOOD COUNT 4.63 10^6/uL (4.70-6.10); RED CELL DISTRIBUTION WIDTH 14.3 % (12.0-15.0); WHITE BLOOD COUNT 6.1 x10^3/uL (4.8-10.8)
[2018-05-07 05:03] LABS: CALCIUM 7.7 mg/dL (8.5-10.3); CREATININE 0.8 mg/dL (0.6-1.2)
[2018-05-07] MEDS ORDERED: POTASSIUM CHLORIDE 20 MEQ TABLET PO ONE (08:16)
[2018-05-07] MEDS: INSULIN GLARGINE 300 UNIT/3 ML PEN SUBQ SCH (08:35)
[2018-05-07] MEDS: INSULIN ASPART 300 UNIT/3 ML PEN SUBQ SCH ×2 (08:36→12:49)
[2018-05-07] MEDS: AMANTADINE 100 MG CAPSULE PO SCH (08:37)
[2018-05-07] MEDS: SACCHAROMYCES BOULARDII 250 MG CAPSULE PO SCH (08:37)
[2018-05-07] MEDS: MULTIVITAMIN TABLET PO SCH (08:37)
[2018-05-07] MEDS: SPIRONOLACTONE 25 MG TABLET PO SCH (08:37)
[2018-05-07] MEDS: methIMAzole 5 MG TABLET PO SCH (08:37)
[2018-05-07] MEDS: FAMOTIDINE 20 MG TABLET PO SCH (08:37)
[2018-05-07] MEDS: LOSARTAN 50 MG TABLET PO SCH (08:37)
[2018-05-07] MEDS: AZITHROMYCIN INJ 500 MG in SODIUM CHLORIDE 0.9% 250 ML IV SCH (08:38)
[2018-05-07] MEDS: ASPIRIN EC 81 MG TABLET PO SCH (08:38)
[2018-05-07] MEDS: SODIUM CHLORIDE FLUSH 0.9% 10 ML SYRINGE IVP SCH (08:38)
[2018-05-07] MEDS: ENOXAPARIN 40 MG/0.4 ML SYRINGE SUBQ SCH (08:38)
[2018-05-07] MEDS: POLYETHYLENE GLYCOL 3350 17 GM PACKET PO SCH (08:57)
[2018-05-07] MEDS: cefTRIAXone 2 GM in SODIUM CHLORIDE 0.9% MINIBAG 100 ML IV SCH (09:47)
--- NOTE | 2018-05-07 10:52 | Discharge Plan ---
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 Notify PCP of admission and forward orders to primary provider for signature. Weight on admission and weekly. Call PCP immediately if weight increases by 5 pounds or if patient develops dyspnea, chest pain/tightness or edema. House Bowel Program: Yes If no BM after 2 days, nurse may give M.O.M. 30ml PO PRN and /or ducolax Supp 1 ID and /or KATI 250mg P.O., and/or senna 1-2 tabs PO. On day 3 nurse may give repeat above order until residents constipation is resolved. Immunizations: Annual Influenza Vaccine: yes. (between Jun 20 and January 17.) Unless allergy or already given Two-Step PPD: Yes per [facility] [phone] or appropriate documentation of approved exceptions Treatments & Other Orders: Daily PT and OT Fingerstick glu ac and hs Oxygen Orders: None Lab Tests or X-Rays Orders: BMP on 05/09/18 Orthopedic Orders: None. Medications: PLEASE REFER TO THE DISCHARGE MEDICATION LIST. Insulin Orders? Yes Diagnosis: Diabetes Initiate hypo and hyperglycemia protocols for BG <70 and BG >375. May check BG prn for signs/symptoms of dysglycemia. Frequency of BG checks: ac and hs Basal Insulin: Lantus 100 units / ml inject subq as follows: 5 U sq daily in am Correction Insulin: - Select the type of insulin below [Choose: Humalog] 100 units /ml insulin inject subq per orders indicate below X LOW DOSE [] MODERATE DOSE [] MODERATE/HIGH DOSE [] HIGH DOSE GB UNITS GB UNITS GB UNITS GB UNITS 61-140 0 UNITS 61-140 0 UNITS 61-140 0 UNITS 61-140 0 UNITS 141-175 1 UNITS 141-175 1 UNITS 141-175 2 UNITS 141-175 3 UNITS 176-225 2 UNITS 176-225 3 UNITS 176-225 4 UNITS 176-225 5 UNITS 226-275 3 UNITS 226-275 5 UNITS 226-275 6 UNITS 226-275 7 UNITS 276-325 4 UNITS 276-325 7 UNITS 276-325 8 UNITS 276-325 9 UNITS 326-375 5 UNITS 326-375 9 UNITS 326-375 10 UNITS 326-375 11 UNITS >375 CONTACT MD >375 CONTACT MD >375 CONTACT MD >375 CONTACT MD Allergies and Adverse Reactions: Allergies Allergy/AdvReac Type Severity Reaction Status Date / Time No Known Drug Allergies Allergy Verified 05/04/18 09:29 - Medications New Prescriptions: Amoxicillin 875 mg PO BID #6 tablet Azithromycin [Zithromax] 500 mg PO DAILY #6 Saccharomyces Boulardii [Florastor] 250 mg PO BID #8 capsule Spironolactone [Aldactone] 25 mg PO DAILY #30 tablet - Diet Type: Diabetic, 4 carb choices +1 evening snack Texture: Mech soft Liquids: Thin May have monthly special meal: Yes - Therapies | Activity Therapy: Evaluation | Treat if indicated: PT, OT Rehabilitation Potential: Maximize functional status Activity: Activity as Tolerated Weight Bearing: Full Weight"
[2018-05-07] MEDS ORDERED: INSULIN ASPART 300 UNIT/3 ML PEN SUBQ SCH (12:00)
[2018-05-07 15:29] VITALS: BP 102/50
--- NOTE | 2018-05-08 06:57 | DISCHARGE SUMMARY ---
Physician: Mandy Han MD DATE OF ADMISSION: 05/04/2018 DATE OF DISCHARGE: 05/07/2018 HISTORY OF PRESENT ILLNESS: This is a 77-year-old white male with a history of insulin-dependent diabetes, Parkinson's started on treatment only one month ago , hypertension, hyperlipidemia, who was noted to be febrile and altered mental status with confusion and severe weakness and anorexia, brought to the emergency room and found to have bibasilar pneumonia. He was admitted for community-acquired pneumonia and weakness. HOSPITAL COURSE AND DISCHARGE DIAGNOSES 1. Community-acquired pneumonia, bilateral, aspiration ruled out. The patient was started on empiric IV ceftriaxone and IV Zithromax. He did not bring up a sputum sample for culture. He was continued on these medications and had a repeat chest x- ray two days into his course, which showed similar pneumonia, but worsening vascular congestion. At discharge, his IV antibiotics were changed to amoxicillin 875 mg p.o. b.i.d. for an additional three days and Zithromax 500 mg daily for an additional three days along with Florastor 250 b.i.d. for an additional four days. 2. Insulin-dependent diabetes. The patient's Glucophage was discontinued while here in order to avoid any renal insufficiency for imaging with dye. He was placed on a carb-controlled diet and sliding scale insulin. At the time of transfer, he had glucoses between 170 and 250. He was transferred back on half of his usual amount of Lantus insulin and with a sliding scale insulin coverage, but Glucophage was resumed. 3. Parkinson's disease, on treatment for only one month. The patient had marked weakness, flat affect, stiffness, resting tremor of his hands only and very poor gait when he was tested by physical therapy. He was felt to have a high fall risk. There was slow improvement in daily therapy with PT and he was felt to be a candidate for SNF for physical therapy and occupational therapy to improve his status. He lives with his who is wheelchair bound, and therefore it was important for him to have maximization of ADLs before returning home. His Parkinson's medications were continued throughout his course, but a second agent was not added, because he had only been on this one for one month. Further medication adjustments should be done as an outpatient. 4. Hyperthyroidism from a history of Graves disease. The patient is on treatment for this, which was continued throughout his course. TSH was measured at 0.18. 5. Congestive heart failure due to valvular disease with a preserved left ventricular ejection fraction. The patient has a harsh 3/6 systolic murmur in the mitral area and reported that he had severe mitral regurgitation with plan for intervention to be done in [place] in early May. An Echo was done here that showed a preserved LVEF of 70% and mitral valve prolapse with severe mitral regurgitation. When the patient had vascular congestion seen on chest x-ray on Day #3, he was started on Spironolactone 25 mg p.o. daily and discharged with this new medication to the SNF. 6. Hypertension. The patient's medications were continued throughout his course. 7. Hyperlipidemia. The patient's medications were continued throughout his course. 8. Weakness. This was felt to be due to his infection of pneumonia plus his Parkinson's disease. He was felt to have rehabilitation potential and was sent to SNF after discharge here. LABORATORY AND IMAGING: Reviewed and summarized above. ALLERGIES: NONE. MEDICATIONS AT TIME OF DISCHARGE 1. Lantus insulin 4 units subcutaneous in the morning. 2. Sliding scale insulin coverage low-dose format. 3. Glucophage 500 mg b.i.d. 4. Tylenol 650 mg p.r.n. pain or fever. 5. Amantadine 100 mg b.i.d. 6. Amoxicillin 875 mg b.i.d. for three more days. 7. Zithromax 500 mg daily for three more days. 8. Baby aspirin daily. 9. Lipitor 40 mg every p.m. 10. Multivitamin with trace metals daily. 11. Tapazole 20 mg b.i.d. 12. Multivitamin daily. 13. Florastor 250 mg b.i.d. for four more days. 14. Spironolactone 25 mg daily. 15. Valsartan 160 mg daily. CONDITION AT DISCHARGE: Fair. PHYSICAL EXAMINATION AT DISCHARGE VITAL SIGNS: Blood pressure 102-125/50-60, heart rate 82 in sinus rhythm, afebrile, room air saturation 97%. HEENT: Oral mucosa moist and poor dentition with only one tooth in the upper jaw. Flat affect. NECK: Without JVD or carotid bruits. CHEST: Diminished breath sounds at both bases, but no rales. HEART: Soft. S1, S2 and a 3/6 pansystolic murmur heard at the apex radiating throughout the precordium. No gallop or RV heave. ABDOMEN: Soft with normal bowel sounds. EXTREMITIES: Without clubbing, cyanosis, or edema. NEUROLOGIC: Poor gait, poor balance, truncal weakness. Resting tremor of the right hand, mostly at rest. Flat affect. CODE STATUS: FULL CODE. FOLLOWUP: This will be determined after his stay at [facility]. The patient does have planned Cardiology appointment in early May for management of his mitral regurgitation with a presumed MitraClip. Time required to complete this entire discharge, chart review, SNF orders, and dictation: 60 minutes. TD: 05/07/2018 18:25 TONY
== END 2018-05-07 16:05 | DRG 193 ==
LOC: ED 09:19 → MS3 11:54
PROVIDERS: ADMIT Internal Medicine; ATTEND Internal Medicine
DX: J18.1 Lobar pneumonia, unspecified organism (principal); J18.9 Pneumonia, unspecified organism; E86.0 Dehydration; G93.41 Metabolic encephalopathy; I50.30 Unspecified diastolic (congestive) heart failure; E87.1 Hypo-osmolality and hyponatremia; G20 Parkinson's disease; E87.6 Hypokalemia; I95.9 Hypotension, unspecified; E05.00 Thyrotoxicosis with diffuse goiter without thyrotoxic crisis or storm; I11.0 Hypertensive heart disease with heart failure; I34.1 Nonrheumatic mitral (valve) prolapse; I34.0 Nonrheumatic mitral (valve) insufficiency; E11.9 Type 2 diabetes mellitus without complications; E78.5 Hyperlipidemia, unspecified; Z91.81 History of falling; Z79.899 Other long term (current) drug therapy; Z79.4 Long term (current) use of insulin; Z87.891 Personal history of nicotine dependence; Z79.82 Long term (current) use of aspirin
CPT/HCPCS: 36415; 71045; 71046; 80048; 80053; 81001; 81003; 83036; 83690; 83880; 84443; 84484; 85025; 87086; 93005; 93306; 96360; 99284; 99285

== ENCOUNTER 2018-05-11 07:30 | Outpatient (CLI) | payer MEDICARE, OTHER ==
[2018-05-11 13:38] LABS: BASOPHILS % (AUTO) 0.5 %; EOSINOPHILS # (AUTO) 0.4 10^3/uL (0.0-0.7); EOSINOPHILS % (AUTO) 3.9 %; HGB - HEMOGLOBIN 14.8 g/dL (14.0-18.0); LYMPHOCYTES # (AUTO) 0.8 10^3/uL (1.5-3.5); LYMPHOCYTES % (AUTO) 8.2 %; MEAN CORPUSCULAR HEMOGLOBIN 33.4 pg (27.0-31.0); MEAN CORPUSCULAR HGB CONC 34.2 g/dL (32.0-36.0); MEAN CORPUSCULAR VOLUME 97.7 fL (80.0-94.0); MONOCYTES # (AUTO) 0.6 10^3/uL (0.0-1.0); MONOCYTES % (AUTO) 5.8 %; NEUTROPHILS % (AUTO) 81.6 %; PLT - PLATELET COUNT 195 10^3/uL (130-450); RED BLOOD COUNT 4.44 10^6/uL (4.70-6.10); RED CELL DISTRIBUTION WIDTH 14.4 % (12.0-15.0); WHITE BLOOD COUNT 9.8 x10^3/uL (4.8-10.8)
[2018-05-11 13:42] LABS: CALCIUM 8.6 mg/dL (8.5-10.3); CREATININE 0.7 mg/dL (0.6-1.2)
== END 2018-05-11 07:31 | disposition home or self-care (01) ==
LOC: LAB.R 07:30
DX: E05.00 Thyrotoxicosis with diffuse goiter without thyrotoxic crisis or storm (principal); J18.9 Pneumonia, unspecified organism
CPT/HCPCS: 80048; 85025

== ENCOUNTER 2019-07-24 13:54 | Outpatient (CLI) | payer MEDICARE, OTHER ==
[2019-07-24 14:54] LABS: CREATININE 0.8 mg/dL (0.6-1.2)
[2019-07-24 15:00] LABS: CALCIUM 9.1 mg/dL (8.5-10.3)
== END 2019-07-24 13:55 | disposition home or self-care (01) ==
LOC: LAB 13:54
PROVIDERS: ATTEND Internal Medicine Cardiovascular Disease
DX: E87.6 Hypokalemia (principal)
CPT/HCPCS: 36415; 80048

== ENCOUNTER 2021-04-16 16:36 | Outpatient (CLI) | payer MEDICARE, OTHER | END 2021-04-16 16:37 | disposition home or self-care (01) | LOC: COV 16:36 | PROVIDERS: ATTEND Internal Medicine Interventional Cardiology | DX: Z01.812 Encounter for preprocedural laboratory examination (principal); Z20.822 Contact with and (suspected) exposure to COVID-19 ==

== ENCOUNTER 2021-08-20 11:47 | Outpatient (CLI) | payer MEDICARE, OTHER | END 2021-08-20 11:48 | disposition EMS.NT | LOC: EMS 11:47 | DX: S01.81XA Laceration without foreign body of other part of head, initial encounter (principal); W18.39XA Other fall on same level, initial encounter; Y92.008 Other place in unspecified non-institutional (private) residence as the place of occurrence of the external cause ==

== ENCOUNTER 2022-02-21 09:56 | Outpatient (CLI) | payer MEDICARE, OTHER ==
[2022-02-21 10:19] LABS: BASOPHILS # (AUTO) 0.1 10^3/uL (0.0-0.1); BASOPHILS % (AUTO) 0.5 %; EOSINOPHILS # (AUTO) 0.3 10^3/uL (0.0-0.7); HCT - HEMATOCRIT 32.7 % (42.0-52.0); HGB - HEMOGLOBIN 10.5 g/dL (14.0-18.0); LYMPHOCYTES % (AUTO) 18.3 %; MEAN CORPUSCULAR HEMOGLOBIN 33.8 pg (27.0-31.0); MEAN CORPUSCULAR HGB CONC 32.1 g/dL (32.0-36.0); MEAN CORPUSCULAR VOLUME 105.1 fL (80.0-94.0); MEAN PLATELET VOLUME 9.2 fL (7.4-11.4); MONOCYTES # (AUTO) 1.2 10^3/uL (0.0-1.0); MONOCYTES % (AUTO) 10.4 %; NEUTROPHILS # (AUTO) 7.5 10^3/uL (1.5-6.6); NEUTROPHILS % (AUTO) 67.4 %; PLT - PLATELET COUNT 260 10^3/uL (130-450); RED BLOOD COUNT 3.11 10^6/uL (4.70-6.10); RED CELL DISTRIBUTION WIDTH 13.6 % (12.0-15.0); WHITE BLOOD COUNT 11.1 x10^3/uL (4.8-10.8)
[2022-02-21 10:30] LABS: BUN - BLOOD UREA NITROGEN 22 mg/dL (6-20); CALCIUM 9.2 mg/dL (8.5-10.3); CARBON DIOXIDE - CO2 25 mmol/L (21-32); CHLORIDE 105 mmol/L (101-111); CHOL/HDL RATIO 2.7 (<5.0); CHOLESTEROL 123 mg/dL; CREATININE 0.9 mg/dL (0.6-1.2); GFR - MDRD 81 (>89); GLUCOSE 201 mg/dL (70-100); HDL CHOLESTEROL 46 mg/dL; LDL CHOLESTEROL,CALCULATED 52 mg/dL; LDL/HDL RATIO 1.1 (<3.6); POTASSIUM 4.1 mmol/L (3.5-5.0); SODIUM 140 mmol/L (135-145); TRIGLYCERIDES 123 mg/dL; VLDL CHOLESTEROL 25 mg/dL
== END 2022-02-21 09:57 | disposition home or self-care (01) ==
LOC: LAB 09:56
PROVIDERS: ATTEND Internal Medicine Cardiovascular Disease
DX: I10 Essential (primary) hypertension (principal); E78.2 Mixed hyperlipidemia
CPT/HCPCS: 36415; 80048; 80061; 83721; 85025

== ENCOUNTER 2022-06-13 12:58 | Inpatient (IN) | payer MEDICARE, OTHER ==
[2022-06-13] MEDS ORDERED: SODIUM CHLORIDE 0.9% 1,000 ML IV STA ×2 (13:04→14:50)
[2022-06-13 13:18] LABS: BASOPHILS % (AUTO) 0.3 %; EOSINOPHILS # (AUTO) 0.1 10^3/uL (0.0-0.7); EOSINOPHILS % (AUTO) 0.6 %; HCT - HEMATOCRIT 21.5 % (42.0-52.0); LYMPHOCYTES # (AUTO) 1.3 10^3/uL (1.5-3.5); LYMPHOCYTES % (AUTO) 11.7 %; MEAN CORPUSCULAR HEMOGLOBIN 22.7 pg (27.0-31.0); MEAN CORPUSCULAR HGB CONC 29.3 g/dL (32.0-36.0); MEAN CORPUSCULAR VOLUME 77.3 fL (80.0-94.0); MEAN PLATELET VOLUME 8.8 fL (7.4-11.4); MONOCYTES % (AUTO) 8.8 %; NEUTROPHILS # (AUTO) 8.8 10^3/uL (1.5-6.6); NEUTROPHILS % (AUTO) 78.1 %; PLT - PLATELET COUNT 441 10^3/uL (130-450); RED BLOOD COUNT 2.78 10^6/uL (4.70-6.10); RED CELL DISTRIBUTION WIDTH 16.8 % (12.0-15.0); WHITE BLOOD COUNT 11.2 x10^3/uL (4.8-10.8)
[2022-06-13 13:23] LABS: HGB - HEMOGLOBIN 6.3 g/dL (14.0-18.0)
[2022-06-13 13:30] LABS: ALBUMIN 3.1 g/dL (3.2-5.5); ALBUMIN/GLOBULIN RATIO 0.8 (1.0-2.2); BILIRUBIN,TOTAL 0.9 mg/dL (0.2-1.0); CALCIUM 8.9 mg/dL (8.5-10.3); CREATININE 1.3 mg/dL (0.6-1.2); POTASSIUM 3.5 mmol/L (3.5-5.0)
--- NOTE | 2022-06-13 14:16 | ED Physician Documentation ---
History of Present Illness - Stated complaint Stated Complaint: FOUND DOWN - Chief complaint Chief Complaint: General - History obtained from History obtained from: Patient, Family - Additonal information Additional information: The patient comes to the emergency department via EMS for chief complaint of being found down at home. The patient was last known to have gone to bed and is suspected to have been up at night trying to ambulate to the bathroom. He does not remember the event and seems to have had a syncopal episode. The patient laid on the floor for 2 days undetected by his who is wheelchair-bound. When his brother came from [place] came to visit, he found the patient laying on the floor. The patient had awakened sometime the same night of the's the fall and was aware of the passing of time. The patient and brother state that the patient has been going growing increasingly pale and increasingly weak over the last couple of weeks. He has chronic blood in his urine. He has a history of bladder cancer which at this point, he is opted not to treat any further. He is not currently on hospice or palliative care, due to his own refusal, despite family efforts to get him more help. However, he is now open to this possibility. He lives at home with his who is wheelchair-bound and has increasing needs. The patient states he wants to stay home but recognizes he needs help. The patient denies any pain in his head or neck. No back pain. No abdominal or chest pain. No hip pain. The patient was too weak to get himself off the floor. Review of Systems Ten Systems: 10 systems reviewed and negative Constitutional: reports: Fatigue Eyes: reports: Reviewed and negative Ears: reports: Reviewed and negative Nose: reports: Reviewed and negative Throat: reports: Reviewed and negative Cardiac: reports: Reviewed and negative Respiratory: reports: Reviewed and negative GI: reports: Reviewed and negative : reports: Reviewed and negative Skin: reports: Reviewed and negative Musculoskeletal: reports: Reviewed and negative Neurologic: reports: Generalized weakness, Syncope Psychiatric: reports: Reviewed and negative Endocrine: reports: Reviewed and negative Immunocompromised: reports: Reviewed and negative PD PAST MEDICAL HISTORY - Past Medical History Past Medical History: Yes Cardiovascular: Congestive heart failure, Hypertension Respiratory: None Neuro: Parkinson's Endocrine/Autoimmune: Type 2 diabetes, HyPERthyroidism : None HEENT: None Psych: None Derm: None - Past Surgical History Past Surgical History: Yes General: Other - Present Medications Home Medications: Ambulatory Orders Medication Instructions Recorded Confirmed Acetaminophen [Tylenol] 650 mg PO Q4HR PRN tablet 05/07/18 Amantadine HCl [Amantadine] 100 mg PO BID #30 05/07/18 05/04/18 Amoxicillin 875 mg PO BID #6 tablet 05/07/18 Aspirin [Aspirin EC] 81 mg PO DAILY #30 05/07/18 05/04/18 Atorvastatin Calcium 40 mg PO QPM #30 05/07/18 05/04/18 Azithromycin [Zithromax] 500 mg PO DAILY #6 05/07/18 C,E,Zinc,Copper 11/Cfcja4x/Lut 1 each PO DAILY #30 05/07/18 05/04/18 [Ocuvite Adult 50 Plus Softgel] Insulin Glargine [Lantus Solostar] 4 units SQ DAILY #0 05/07/18 05/04/18 Multivitamin [Theragran] 1 each PO DAILY #30 05/07/18 05/04/18 Saccharomyces Boulardii [Florastor] 250 mg PO BID #8 capsule 05/07/18 Spironolactone [Aldactone] 25 mg PO DAILY #30 tablet 05/07/18 Valsartan 160 mg PO DAILY #30 05/07/18 05/05/18 metFORMIN [Glucophage] 500 mg PO BID #60 05/07/18 05/04/18 methIMAzole [Tapazole] 20 mg PO BID #60 05/07/18 05/04/18 - Allergies Allergies/Adverse Reactions: Allergies Allergy/AdvReac Type Severity Reaction Status Date / Time No Known Drug Allergies Allergy Verified 06/13/22 13:10 - Social History Does the pt smoke?: No Smoking Status: Never smoker Does the pt drink ETOH?: No Does the pt have substance abuse?: No - Immunizations Immunizations are current?: Yes - POLST Patient has POLST: No POLST Status: Full Code PD ED PE NORMAL - Vitals Vital signs reviewed: Yes - General General: Alert and oriented X 3, No acute distress, Other (Emaciated man who appears older than stated age in no distress.) - HEENT HEENT: Atraumatic, PERRL, EOMI, Moist mucous membranes - Neck Neck: Supple, no meningeal sign - Cardiac Cardiac: RRR, No murmur, Strong equal pulses - Respiratory Respiratory: No respiratory distress, Clear bilaterally - Abdomen Abdomen: Soft, Non tender, Non distended - Derm Derm: Warm and dry, Other (Marked pallor) - Extremities Extremities: No deformity, No edema, No calf tenderness / cord - Neuro Neuro: Alert and oriented X 3, paint mixer machine 2-12 intact, Normal speech, Other (No gross deficits) - Psych Psych: Normal mood, Normal affect Results - Vitals Vitals: Vital Signs - 24 hr 06/13/22 06/13/22 06/13/22 13:10 13:14 15:14 Temperature 36.7 C 36.7 C Heart Rate 85 85 88 Respiratory 16 16 18 Rate Blood Pressure 116/68 116/68 170/71 H O2 Saturation 100 100 98 Oxygen O2 Source Room air - Labs Labs: Laboratory Tests 06/13/22 06/13/22 06/13/22 13:12 13:12 13:12 WBC 11.2 H RBC 2.78 L Hgb 6.3 L* Hct 21.5 L MCV 77.3 L MCH 22.7 L MCHC 29.3 L RDW 16.8 H Plt Count 441 MPV 8.8 Neut # (Auto) 8.8 H Lymph # (Auto) 1.3 L Wayne # (Auto) 1.0 Eos # (Auto) 0.1 Baso # (Auto) 0.0 Absolute Nucleated RBC 0.00 Nucleated RBC % 0.0 Sodium 141 Potassium 3.5 Chloride 105 Carbon Dioxide 25 Anion Gap 11.0 BUN 41 H Creatinine 1.3 H Estimated GFR (MDRD) 53 L Glucose 232 H Calcium 8.9 Total Bilirubin 0.9 AST 22 ALT 18 Alkaline Phosphatase 79 Total Creatine Kinase 92 Total Protein 7.0 Albumin 3.1 L Globulin 3.9 Albumin/Globulin Ratio 0.8 L Lipase 23 Urine Color Urine Clarity Urine pH Ur Specific [employer] Urine Protein Urine Glucose (UA) Urine Ketones Urine Occult Blood Urine Nitrite Urine Bilirubin Urine Urobilinogen Ur Leukocyte Esterase Urine RBC Urine WBC Ur Squamous Epith Cells Amorphous Sediment Urine Bacteria Ur Microscopic Review Urine Culture Comments Nasal Adenovirus (PCR) Nasal B. parapertussis DNA (PCR) Nasal Coronavir 229E PCR Nasal Coronavir HKU1 PCR Nasal Coronavir NL63 PCR Nasal Coronavir OC43 PCR Nasal Enterovir/Rhinovir PCR Nasal Influenza B PCR Nasal Influenza A PCR Nasal Parainfluen 1 PCR Nasal Parainfluen 2 PCR Nasal Parainfluen 3 PCR Nasal Parainfluen 4 PCR Nasal RSV (PCR) Nasal B.pertussis DNA PCR Nasal C.pneumoniae (PCR) [place] Human Metapneumo PCR Nasal M.pneumoniae (PCR) Nasal SARS-CoV-2 (PCR) Blood Type Blood Type Recheck A NEGATIVE Antibody Screen Crossmatch IS Only 06/13/22 06/13/22 06/13/22 14:42 14:42 15:08 WBC RBC Hgb Hct MCV MCH MCHC RDW Plt Count MPV Neut # (Auto) Lymph # (Auto) Wayne # (Auto) Eos # (Auto) Baso # (Auto) Absolute Nucleated RBC Nucleated RBC % Sodium Potassium Chloride Carbon Dioxide Anion Gap BUN Creatinine Estimated GFR (MDRD) Glucose Calcium Total Bilirubin AST ALT Alkaline Phosphatase Total Creatine Kinase 84 Total Protein Albumin Globulin Albumin/Globulin Ratio Lipase Urine Color RED/BLOODY Urine Clarity HAZY Urine pH 5.5 Ur Specific [employer] 1.015 Urine Protein 100 H Urine Glucose (UA) 100 H Urine Ketones TRACE Urine Occult Blood LARGE H Urine Nitrite NEGATIVE Urine Bilirubin NEGATIVE Urine Urobilinogen 0.2 (NORMAL) Ur Leukocyte Esterase TRACE H Urine RBC 11-25 H Urine WBC 6-10 H Ur Squamous Epith Cells RARE Squamous Amorphous Sediment Rare Urine Bacteria Many H Ur Microscopic Review INDICATED Urine Culture Comments INDICATED Nasal Adenovirus (PCR) Nasal B. parapertussis DNA (PCR) Nasal Coronavir 229E PCR Nasal Coronavir HKU1 PCR Nasal Coronavir NL63 PCR Nasal Coronavir OC43 PCR Nasal Enterovir/Rhinovir PCR Nasal Influenza B PCR Nasal Influenza A PCR Nasal Parainfluen 1 PCR Nasal Parainfluen 2 PCR Nasal Parainfluen 3 PCR Nasal Parainfluen 4 PCR Nasal RSV (PCR) Nasal B.pertussis DNA PCR Nasal C.pneumoniae (PCR) [place] Human Metapneumo PCR Nasal M.pneumoniae (PCR) Nasal SARS-CoV-2 (PCR) Blood Type A NEGATIVE Blood Type Recheck Antibody Screen NEGATIVE Crossmatch IS Only See Detail 06/13/22 16:03 WBC RBC Hgb Hct MCV MCH MCHC RDW Plt Count MPV Neut # (Auto) Lymph # (Auto) Wayne # (Auto) Eos # (Auto) Baso # (Auto) Absolute Nucleated RBC Nucleated RBC % Sodium Potassium Chloride Carbon Dioxide Anion Gap BUN Creatinine Estimated GFR (MDRD) Glucose Calcium Total Bilirubin AST ALT Alkaline Phosphatase Total Creatine Kinase Total Protein Albumin Globulin Albumin/Globulin Ratio Lipase Urine Color Urine Clarity Urine pH Ur Specific [employer] Urine Protein Urine Glucose (UA) Urine Ketones Urine Occult Blood Urine Nitrite Urine Bilirubin Urine Urobilinogen Ur Leukocyte Esterase Urine RBC Urine WBC Ur Squamous Epith Cells Amorphous Sediment Urine Bacteria Ur Microscopic Review Urine Culture Comments Nasal Adenovirus (PCR) NOT DETECTED Nasal B. parapertussis DNA (PCR) NOT DETECTED Nasal Coronavir 229E PCR NOT DETECTED Nasal Coronavir HKU1 PCR NOT DETECTED Nasal Coronavir NL63 PCR NOT DETECTED Nasal Coronavir OC43 PCR NOT DETECTED Nasal Enterovir/Rhinovir PCR NOT DETECTED Nasal Influenza B PCR NOT DETECTED Nasal Influenza A PCR NOT DETECTED Nasal Parainfluen 1 PCR NOT DETECTED Nasal Parainfluen 2 PCR NOT DETECTED Nasal Parainfluen 3 PCR NOT DETECTED Nasal Parainfluen 4 PCR NOT DETECTED Nasal RSV (PCR) NOT DETECTED Nasal B.pertussis DNA PCR NOT DETECTED Nasal C.pneumoniae (PCR) NOT DETECTED [place] Human Metapneumo PCR NOT DETECTED Nasal M.pneumoniae (PCR) NOT DETECTED Nasal SARS-CoV-2 (PCR) NOT DETECTED Blood Type Blood Type Recheck Antibody Screen Crossmatch IS Only - Rads (name of study) CT head Radiology: Final report received, EMP read indepedently, See rad report (Unre markable) CT C-spine Radiology: Final report received, EMP read indepedently, See rad report (Unremarkable) PD MEDICAL DECISION MAKING - ED course Complexity details: reviewed results, re-evaluated patient, considered differential, d/w patient, d/w family ED course: The patient was given 2 liters of IV fluids and worked up with labs, head and C- spine CTs, urinalysis, and EKG. CT scans were unremarkable. The patient's labs showed a hemoglobin of 6.3 which is down from nearly twice this much back in the spring. He was also found to have a urinary tract infection. Patient was treated for the urinary tract infection and I did order 2 units of blood for him. I spoke with Dr. Francisco who agreed to admit the patient to his service. Patient is also agreeable to this. Departure - Departure Disposition: 66 [facility] DC/Xfer Clinical Impression: Severe anemia, Syncope and collapse UTI (urinary tract infection) Qualifiers: Urinary tract infection type: acute cystitis Hematuria presence: with hematuria Qualified Code(s): N30.01 - Acute cystitis with hematuria Condition: Serious Discharge Date/Time: 06/13/22 17:00
--- NOTE | 2022-06-13 14:53 | CT Report ---
PROCEDURE: HEAD WO INDICATIONS: fall/syncope TECHNIQUE: Noncontrast 4.5 mm thick angled axial sections acquired from the foramen magnum to the vertex. For r adiation dose reduction, the following was used: automated exposure control, adjustment of mA and/or kV according to patient size. COMPARISON: None. FINDINGS: Image quality: Excellent. CSF spaces: Basal cisterns are patent. No extra-axial fluid collections. Ventricles are normal in size and shape. Brain: No midline shift. No intracranial masses or hemorrhage. Woods-white matter interface is norm al. Skull and face: Calvarium and visualized facial bones are intact, without suspicious lesions. Sinuses: Visualized sinuses and mastoids are clear. IMPRESSION: No evidence of acute intracranial process. Reviewed by: Goran Brady MD on 06/13/2022 2:52 PM PDT Approved by: Goran Brady MD on 06/13/2022 2:52 PM PDT Station ID: [id number]
--- NOTE | 2022-06-13 14:57 | CT Report ---
PROCEDURE: CERVICAL SPINE WO INDICATIONS: fall/head injury TECHNIQUE: Noncontrast 3 mm thick sections acquired from the skull base to the T4 level. Sagittal and coronal r eformats were then constructed. For radiation dose reduction, the following was used: automated exp osure control, adjustment of mA and/or kV according to patient size. COMPARISON: None. FINDINGS: Image quality: Excellent. Bones: No fractures or dislocations. Visualized superior ribs are intact. Severe cervical spondylit ic change with multilevel facet arthropathy. There is also multilevel severe foraminal narrowing Soft tissues: Prevertebral soft tissues are normal in thickness. No paravertebral hematomas. No ap ical pneumothoraces. Dense calcifications involving the vertebral arteries and carotid bifurcations. IMPRESSION: 1. No evidence of acute cervical fracture or dislocation. 2. Severe cervical spondylosis. 3. ASCVD. Reviewed by: Goran Brady MD on 06/13/2022 2:56 PM PDT Approved by: Goran Brady MD on 06/13/2022 2:56 PM PDT Station ID: [id number]
[2022-06-13 15:15] LABS: BILIRUBIN,URINE NEGATIVE (NEGATIVE); GLUCOSE, URINE (UA) 100 mg/dL (NEGATIVE); KETONES,URINE (UA) TRACE mg/dL (NEGATIVE); LEUKOCYTE ESTERASE, URINE TRACE (NEGATIVE); NITRITE,URINE NEGATIVE (NEGATIVE); OCCULT BLOOD,URINE LARGE (NEGATIVE); PH,URINE 5.5 PH (5.0-7.5); PROTEIN,URINE 100 mg/dL (NEGATIVE); UROBILINOGEN,URINE 0.2 (NORMAL) E.U./dL (NORMAL)
[2022-06-13 15:18] LABS: CLARITY,URINE HAZY (CLEAR)
[2022-06-13 15:36] LABS: AMORPHOUS SEDIMENT,UR Rare /LPF; BACTERIA,URINE Many /HPF (None Seen); SQUAMOUS EPITHELIAL CELL,UR RARE Squamous (<= Few)
[2022-06-13] MEDS ORDERED: cefTRIAXone 2 GM in SODIUM CHLORIDE 0.9% MINIBAG 100 ML IV STA (15:43)
[2022-06-13] MEDS ORDERED: ACETAMINOPHEN 325 MG TABLET PO PRN (16:24)
[2022-06-13] MEDS ORDERED: ONDANSETRON 4 MG/2 ML VIAL IVP PRN (16:24)
[2022-06-13] MEDS ORDERED: oxyCODONE 5 MG TABLET PO PRN (16:24)
[2022-06-13] MEDS ORDERED: SODIUM CHLORIDE FLUSH 0.9% 10 ML SYRINGE IVP PRN (16:24)
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
[2022-06-13 16:59] LABS: B. PARAPERTUSSIS- RESP PCR PAN NOT DETECTED; B. PERTUSSIS- RESP PCR PANEL NOT DETECTED; C. PNEUMONIAE- RESP PCR PANEL NOT DETECTED; CORONAVIRUS 229E-RESP PCR NOT DETECTED; CORONAVIRUS HKU1-RESP PCR NOT DETECTED; CORONAVIRUS NL63-RESP PCR NOT DETECTED; CORONAVIRUS OC43-RESP PCR NOT DETECTED; HUMAN METAPNEUMOVIRUS NOT DETECTED; INFLUENZA A- RESP PCR PANEL NOT DETECTED; INFLUENZA B - RESP PCR PANEL NOT DETECTED; M. PNEUMONIAE- RESP PCR PANEL NOT DETECTED; PARAINFLUENZA VIRUS 1 NOT DETECTED; PARAINFLUENZA VIRUS 2 NOT DETECTED; PARAINFLUENZA VIRUS 3 NOT DETECTED; PARAINFLUENZA VIRUS 4 NOT DETECTED; RHINOVIRUS/ENTEROVIRUS NOT DETECTED; RSV- RESP PCR PANEL NOT DETECTED; SARS-CoV-2 -RESP PCR PANEL NOT DETECTED
[2022-06-13] MEDS ORDERED: SODIUM CHLORIDE FLUSH 0.9% 10 ML SYRINGE IVP SCH (17:00)
[2022-06-13] MEDS ORDERED: SODIUM CHLORIDE 0.9% 1,000 ML IV SCH ×2 (17:00)
[2022-06-13] MEDS: SODIUM CHLORIDE FLUSH 0.9% 10 ML SYRINGE IVP SCH (17:48)
[2022-06-13] MEDS: INSULIN LISPRO 300 UNIT/3 ML PEN SUBQ SCH (22:02)
[2022-06-14] MEDS: SODIUM CHLORIDE FLUSH 0.9% 10 ML SYRINGE IVP SCH ×3 (00:39→17:04)
[2022-06-14] MEDS: SODIUM CHLORIDE 0.9% 1,000 ML IV SCH ×2 (00:44→13:50)
[2022-06-14 05:18] LABS: BASOPHILS % (AUTO) 0.2 %; EOSINOPHILS # (AUTO) 0.1 10^3/uL (0.0-0.7); EOSINOPHILS % (AUTO) 0.9 %; HCT - HEMATOCRIT 27.1 % (42.0-52.0); HGB - HEMOGLOBIN 8.3 g/dL (14.0-18.0); LYMPHOCYTES # (AUTO) 0.9 10^3/uL (1.5-3.5); LYMPHOCYTES % (AUTO) 7.3 %; MEAN CORPUSCULAR HEMOGLOBIN 24.3 pg (27.0-31.0); MEAN CORPUSCULAR HGB CONC 30.6 g/dL (32.0-36.0); MEAN CORPUSCULAR VOLUME 79.5 fL (80.0-94.0); MEAN PLATELET VOLUME 8.9 fL (7.4-11.4); MONOCYTES # (AUTO) 1.1 10^3/uL (0.0-1.0); MONOCYTES % (AUTO) 8.4 %; NEUTROPHILS # (AUTO) 10.7 10^3/uL (1.5-6.6); NEUTROPHILS % (AUTO) 82.7 %; NRBC ABSOLUTE COUNT (AUTO) 0.02 x10^3/uL; NUCLEATED RED BLOOD CELLS AUTO 0.2 /100WBC; PLT - PLATELET COUNT 380 10^3/uL (130-450); RED BLOOD COUNT 3.41 10^6/uL (4.70-6.10); RED CELL DISTRIBUTION WIDTH 17.2 % (12.0-15.0); WHITE BLOOD COUNT 12.9 x10^3/uL (4.8-10.8)
[2022-06-14 05:25] LABS: CALCIUM 8.2 mg/dL (8.5-10.3); CREATININE 1.1 mg/dL (0.6-1.2); POTASSIUM 3.2 mmol/L (3.5-5.0)
--- NOTE | 2022-06-14 07:46 | PROVIDER PROGRESS NOTE ---
Assessment/Plan - Problem List (1) Severe anemia Assessment/Plan: Likely due to slow hematuria related to bladder cancer. Hemoglobin admission was 6.3. After 2 units of packed red blood cell transfusion hemoglobin this morning was 8.3. Will continue to monitor. (2) UTI (urinary tract infection) Qualifiers: Urinary tract infection type: acute cystitis Hematuria presence: with hematuria Qualified Code(s): N30.01 - Acute cystitis with hematuria Assessment/Plan: White blood cell count today was 12.9 On Rocephin 1 g IV daily. Urine culture is no growth so far. IV hydration with normal saline at 75 mL/h. (4) Bladder cancer Assessment/Plan: It is reported that patient opted for no further medical or surgical intervention. Discussed with palliative care for possible consult. Was recommended that the cognitive evaluation be done. Patient scored 8 out of 30 on the cognitive eval. Based on this call it would be difficult to discuss further expectations/ Goals of care with the patient Will reassess on Friday06/17/22. We will also attempt to reach patient's son and/or for further discussion. (5) Abrasion of right elbow Qualifiers: Encounter type: initial encounter Qualified Code(s): S50.311A - Abrasion of right elbow, initial encounter Assessment/Plan: Likely due to being on the ground for 2 days. Wounds cleaned and dressed. (6) CHF due to valvular disease Assessment/Plan: Continue to hold spironolactone and valsartan while actively hydrating the patient. (7) Generalized weakness Assessment/Plan: PT/OT evaluation. Patient transfused 2 units of packed red blood cells. Underlying comorbidities which include bladder cancer contributing to weakness. (8) Hyperlipidemia Qualifiers: Hyperlipidemia type: unspecified Qualified Code(s): E78.5 - Hyperlipidemia, unspecified Assessment/Plan: On atorvastatin 40 mg p.o. every afternoon. Qualifiers: (9) Hypertension Qualifiers: Hypertension type: essential hypertension Assessment/Plan: Spironolactone and valsartan held while actively hydrating patient. 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 We will hold metformin while in the hospital. Accu-Cheks q. ACH S, sliding scale insulin. - Current Meds Current Meds: Current Medications Generic Name Dose Route Start Last Admin Trade Name Freq PRN Reason Stop Dose Admin Sodium Chloride 1,000 mls @ 75 mls/hr 06/13/22 18:30 06/14/22 00:44 Normal Saline 0.9% IV 75 mls/hr .[id number] ERIN Administration Insulin Human Lispro 1 - 9 unit 06/13/22 21:00 06/13/22 22:02 Insulin Lispro 300 Unit/3 Ml Pen SUBQ 5 unit 0800,1200,1700,2100 ERIN Administration Protocol Sodium Chloride 10 ml 06/13/22 17:00 06/14/22 00:39 Sodium Chloride Flush 0.9% 10 Ml Syringe IVP 10 ml 0100,0900,1700 ERIN Administration - Lab Result Fish Bone Diagrams: 06/14/22 04:27 06/14/22 04:27 - Additional Planning My Orders: My Active Orders 06/13/22 16:24 Activity Orders [RC] Q2HR IO [RC] IOSHIFT Initiate Bowel Care Protocol [RC] .protocol Initiate Line Care Protocol [RC] QSHIFT Initiate Personal Care Protoco [RC] .protocol Telemetry- [RC] Q4HR Vital Signs [RC] Q4HR Acetaminophen [Tylenol] 650 mg PO Q4HR PRN Ondansetron Inj [Zofran Inj] 4 mg IVP Q6HR PRN oxyCODONE [Roxicodone] 5 mg PO Q4HR PRN Code Status [OTHERS] Routine Condition of Patient [OTHERS] Routine DVT Prophylaxis [OTHERS] Routine 06/13/22 16:27 SCDs [RC] QSHIFT Evaluate and Treat OT [OT] Routine Evaluate and Treat PT [PT] Routine 06/13/22 16:57 Transfuse RBCs Leukoreduced [RC] .ONCE 06/13/22 17:00 Sodium Chloride Flush 0.9% [Normal Saline Flush 0.9%] 10 ml IVP 0100,0900,1700 06/13/22 17:06 Sodium Chloride Flush 0.9% [Normal Saline Flush 0.9%] 10 ml IVP PRN PRN 06/13/22 18:30 Sodium Chloride 0.9% [Normal Saline 0.9%] 1,000 ml IV 75 mls/hr 06/13/22 18:46 Blood Glucose Checks - Eating [RC] 0800,1200,1700,2100 Initiate Hypoglycemia Protocol [RC] .protocol 06/13/22 21:00 Insulin Lispro [Humalog Kwikpen U-100] 1 - 9 unit SUBQ 0800,1200,1700,2100 06/14/22 Breakfast Carb-controlled Diet [DIET] 06/14/22 09:00 Insulin Glargine [Lantus Solostar] 5 unit SUBQ QPM cefTRIAXone [Rocephin] 1 gm Sodium Chloride 0.9% Minibag [Normal Saline 0.9% Minibag] 100 ml IV DAILY polyethylene glycoL 3350 [Miralax] 17 gm PO DAILY 06/15/22 05:00 BMP - BASIC METABOLIC PANEL [CHEM] DAILYLAB CBC - COMP BLD CT W/AUTO DIFF [HEME] DAILYLAB 06/16/22 05:00 BMP - BASIC METABOLIC PANEL [CHEM] DAILYLAB CBC - COMP BLD CT W/AUTO DIFF [HEME] DAILYLAB 06/17/22 05:00 BMP - BASIC METABOLIC PANEL [CHEM] DAILYLAB CBC - COMP BLD CT W/AUTO DIFF [HEME] DAILYLAB 06/18/22 05:00 BMP - BASIC METABOLIC PANEL [CHEM] DAILYLAB CBC - COMP BLD CT W/AUTO DIFF [HEME] DAILYLAB Subjective - Subjective Patient Reports: Other (He was resting comfortably in bed at time of exam. He reports feeling cold.) Objective Vital Signs: Vital Signs - 24 hr 06/13/22 06/13/22 06/13/22 13:10 13:14 15:14 Temperature 36.7 C 36.7 C Heart Rate 85 85 88 Heart Rate [ Brachial] Respiratory 16 16 18 Rate Blood Pressure 116/68 116/68 170/71 H Blood Pressure [Right Brachial artery] O2 Saturation 100 100 98 06/13/22 06/13/22 06/13/22 17:00 18:19 18:34 Temperature 36.4 C L 36.3 C L 36.5 C Heart Rate Heart Rate [ 90 86 87 Brachial] Respiratory 24 18 18 Rate Blood Pressure Blood Pressure 104/53 L 117/40 L 122/76 [Right Brachial artery] O2 Saturation 100 100 100 06/13/22 06/13/22 06/13/22 21:25 21:26 21:56 Temperature 36.6 C 36.6 C 36.6 C Heart Rate Heart Rate [ 92 92 92 Brachial] Respiratory 24 24 24 Rate Blood Pressure Blood Pressure 130/50 L 130/50 L 130/50 L [Right Brachial artery] O2 Saturation 92 92 100 06/13/22 06/14/22 06/14/22 22:11 00:20 00:21 Temperature 36.6 C 36.7 C 36.7 C Heart Rate Heart Rate [ 93 93 93 Brachial] Respiratory 24 17 17 Rate Blood Pressure Blood Pressure 127/70 131/54 H 131/54 H [Right Brachial artery] O2 Saturation 100 95 95 06/14/22 06/14/22 04:50 07:44 Temperature 36.3 C L 36.6 C Heart Rate Heart Rate [ 96 87 Brachial] Respiratory 20 18 Rate Blood Pressure Blood Pressure 132/59 H 127/68 [Right Brachial artery] O2 Saturation 96 98 Oxygen O2 Source Room air I&O (Last 24 Hrs): Intake and Output Totals x24h 06/12/22 06/13/22 06/14/22 23:59 23:59 23:59 Intake Total 2685.833 450 Output Total 600 500 Balance 2085.833 -50 General: Alert, Oriented x3 HEENT: PERRLA, EOMI Neck: Supple, No JVD Neuro: Alert, Oriented Times 3 Cardiovascular: Regular rate Respiratory: Chest non-tender, No respiratory distress, Breath sounds nml Abdomen: Normal bowel sounds, Soft, No tenderness, No masses Extremities: No clubbing, No cyanosis, No edema, No tenderness/swelling Comments/Notes: Abrasions on right elbow wrist and toes. - Results Results: Laboratory Results WBC 12.9 x10^3/uL (4.8-10.8) H 06/14/22 04:27 RBC 3.41 10^6/uL (4.70-6.10) L 06/14/22 04:27 Hgb 8.3 g/dL (14.0-18.0) L 06/14/22 04:27 Hct 27.1 % (42.0-52.0) L 06/14/22 04:27 MCV 79.5 fL (80.0-94.0) L 06/14/22 04:27 MCH 24.3 pg (27.0-31.0) L 06/14/22 04:27 MCHC 30.6 g/dL (32.0-36.0) L 06/14/22 04:27 RDW 17.2 % (12.0-15.0) H 06/14/22 04:27 Plt Count 380 10^3/uL (130-450) 06/14/22 04:27 MPV 8.9 fL (7.4-11.4) 06/14/22 04:27 Neut # (Auto) 10.7 10^3/uL (1.5-6.6) H 06/14/22 04:27 Lymph # (Auto) 0.9 10^3/uL (1.5-3.5) L 06/14/22 04:27 [place] # (Auto) 1.1 10^3/uL (0.0-1.0) H 06/14/22 04:27 Eos # (Auto) 0.1 10^3/uL (0.0-0.7) 06/14/22 04:27 Baso # (Auto) 0.0 10^3/uL (0.0-0.1) 06/14/22 04:27 Absolute Nucleated RBC 0.02 x10^3/uL 06/14/22 04:27 Nucleated RBC % 0.2 /100WBC 06/14/22 04:27 Sodium 137 mmol/L (135-145) 06/14/22 04:27 Potassium 3.2 mmol/L (3.5-5.0) L 06/14/22 04:27 Chloride 106 mmol/L (101-111) 06/14/22 04:27 Carbon Dioxide 23 mmol/L (21-32) 06/14/22 04:27 Anion Gap 8.0 (6-13) 06/14/22 04:27 BUN 31 mg/dL (6-20) H 06/14/22 04:27 Creatinine 1.1 mg/dL (0.6-1.2) 06/14/22 04:27 Estimated GFR (MDRD) 64 (>89) L 06/14/22 04:27 Glucose 283 mg/dL (70-100) H 06/14/22 04:27 Calcium 8.2 mg/dL (8.5-10.3) L 06/14/22 04:27 Total Bilirubin 0.9 mg/dL (0.2-1.0) 06/13/22 13:12 AST 22 IU/L (10-42) 06/13/22 13:12 ALT 18 IU/L (10-60) 06/13/22 13:12 Alkaline Phosphatase 79 IU/L (42-121) 06/13/22 13:12 Total Creatine Kinase 84 IU/L (22-269) 06/13/22 14:42 Total Protein 7.0 g/dL (6.7-8.2) 06/13/22 13:12 Albumin 3.1 g/dL (3.2-5.5) L 06/13/22 13:12 Globulin 3.9 g/dL (2.1-4.2) 06/13/22 13:12 Albumin/Globulin Ratio 0.8 (1.0-2.2) L 06/13/22 13:12 Lipase 23 U/L (22-51) 06/13/22 13:12 Urine Color RED/BLOODY 06/13/22 15:08 Urine Clarity HAZY (CLEAR) 06/13/22 15:08 Urine pH 5.5 PH (5.0-7.5) 06/13/22 15:08 Ur Specific [place] 1.015 (1.002-1.030) 06/13/22 15:08 Urine Protein 100 mg/dL (NEGATIVE) H 06/13/22 15:08 Urine Glucose (UA) 100 mg/dL (NEGATIVE) H 06/13/22 15:08 Urine Ketones TRACE mg/dL (NEGATIVE) 06/13/22 15:08 Urine Occult Blood LARGE (NEGATIVE) H 06/13/22 15:08 Urine Nitrite NEGATIVE (NEGATIVE) 06/13/22 15:08 Urine Bilirubin NEGATIVE (NEGATIVE) 06/13/22 15:08 Urine Urobilinogen 0.2 (NORMAL) E.U./dL (NORMAL) 06/13/22 15:08 Ur Leukocyte Esterase TRACE (NEGATIVE) H 06/13/22 15:08 Urine RBC 11-25 /HPF (0-5) H 06/13/22 15:08 Urine WBC 6-10 /HPF (0-3) H 06/13/22 15:08 Ur Squamous Epith Cells RARE Squamous (<= Few) 06/13/22 15:08 Amorphous Sediment Rare /LPF 06/13/22 15:08 Urine Bacteria Many /HPF (None Seen) H 06/13/22 15:08 Ur Microscopic Review INDICATED 06/13/22 15:08 Urine Culture Comments INDICATED 06/13/22 15:08 Nasal Adenovirus (PCR) NOT DETECTED 06/13/22 16:03 Nasal B. parapertussis DNA (PCR) NOT DETECTED 06/13/22 16:03 Nasal Coronavir 229E PCR NOT DETECTED 06/13/22 16:03 Nasal Coronavir HKU1 PCR NOT DETECTED 06/13/22 16:03 Nasal Coronavir NL63 PCR NOT DETECTED 06/13/22 16:03 Nasal Coronavir OC43 PCR NOT DETECTED 06/13/22 16:03 Nasal Enterovir/Rhinovir PCR NOT DETECTED 06/13/22 16:03 Nasal Influenza B PCR NOT DETECTED 06/13/22 16:03 Nasal Influenza A PCR NOT DETECTED 06/13/22 16:03 Nasal Parainfluen 1 PCR NOT DETECTED 06/13/22 16:03 Nasal Parainfluen 2 PCR NOT DETECTED 06/13/22 16:03 Nasal Parainfluen 3 PCR NOT DETECTED 06/13/22 16:03 Nasal Parainfluen 4 PCR NOT DETECTED 06/13/22 16:03 Nasal RSV (PCR) NOT DETECTED 06/13/22 16:03 Nasal B.pertussis DNA PCR NOT DETECTED 06/13/22 16:03 Nasal C.pneumoniae (PCR) NOT DETECTED 06/13/22 16:03 [place] Human Metapneumo PCR NOT DETECTED 06/13/22 16:03 Nasal M.pneumoniae (PCR) NOT DETECTED 06/13/22 16:03 Nasal SARS-CoV-2 (PCR) NOT DETECTED 06/13/22 16:03 Blood Type A NEGATIVE 06/13/22 14:42 Blood Type Recheck A NEGATIVE 06/13/22 13:12 Antibody Screen NEGATIVE 06/13/22 14:42 Crossmatch IS Only See Detail 06/13/22 14:42 ABX Reporting Has patient been on IV antibiotics over the past 48 hours?: Yes
[2022-06-14] MEDS: INSULIN LISPRO 300 UNIT/3 ML PEN SUBQ SCH ×4 (08:10→21:02)
[2022-06-14] MEDS: INSULIN GLARGINE 300 UNIT/3 ML PEN SUBQ SCH ×2 (08:11→21:02)
[2022-06-14] MEDS: cefTRIAXone 1 GM in SODIUM CHLORIDE 0.9% MINIBAG 100 ML IV SCH (08:14)
[2022-06-14] MEDS: polyethylene glycoL 3350 17 GM PACKET PO SCH (08:14)
[2022-06-14] MEDS ORDERED: cefTRIAXone 1 GM in SODIUM CHLORIDE 0.9% MINIBAG 100 ML IV SCH (09:00)
[2022-06-14] MEDS ORDERED: AZITHROMYCIN INJ 500 MG in SODIUM CHLORIDE 0.9% 250 ML IV SCH ×4 (09:00)
--- NOTE | 2022-06-14 15:55 | PHARMACY PROGRESS NOTE ---
- Best Possible Medication History Admit Date and Time: 06/13/22 1624 Processed by: Pharmacy Medication History completed: Yes Patient Interview: Pt unable to participate Secondary Source(s): Spouse/Significant other (SPOKE WITH SPOUSE WHO HAD A [place] REGIVER HELP GO THROUGH THE MORE CURRENT BOTTLES AT HOME SINCE BOTTLES PATIENT BROUGHT MOSTLY . NOTE TORSEMIDE IN BOTTLE PT BROUGHT (WHICH PT AND STATES TO BE TAKING) IS 20MG QD. MOST RECENT PRESCRIPTION BOTTLE FROM HOME IS 10MG QD, LAST DISPENSED 05/16/22. ), Pharmacy records As the person ultimately responsible for medication therapy, providers are able to order a medication from an existing home medication list in [facility] via the "Reconcile Routine" prior to Confirmation of that medication by lab support service tech. Such practice is discouraged except when the physician, in their clinical judgment, deems that a medical need exists for a medication without regard to previous use.
[2022-06-14] MEDS ORDERED: POTASSIUM CHLORIDE 20 MEQ TABLET PO ONE (16:09)
[2022-06-15] MEDS: SODIUM CHLORIDE 0.9% 1,000 ML IV SCH ×2 (02:50→15:03)
[2022-06-15] MEDS: SODIUM CHLORIDE FLUSH 0.9% 10 ML SYRINGE IVP SCH ×3 (02:50→15:44)
[2022-06-15 06:02] LABS: BASOPHILS # (AUTO) 0.1 10^3/uL (0.0-0.1); BASOPHILS % (AUTO) 0.3 %; EOSINOPHILS # (AUTO) 0.2 10^3/uL (0.0-0.7); EOSINOPHILS % (AUTO) 1.6 %; HCT - HEMATOCRIT 26.5 % (42.0-52.0); HGB - HEMOGLOBIN 8.2 g/dL (14.0-18.0); LYMPHOCYTES # (AUTO) 1.3 10^3/uL (1.5-3.5); LYMPHOCYTES % (AUTO) 8.6 %; MEAN CORPUSCULAR HEMOGLOBIN 24.8 pg (27.0-31.0); MEAN CORPUSCULAR HGB CONC 30.9 g/dL (32.0-36.0); MEAN CORPUSCULAR VOLUME 80.1 fL (80.0-94.0); MEAN PLATELET VOLUME 8.6 fL (7.4-11.4); MONOCYTES # (AUTO) 1.3 10^3/uL (0.0-1.0); MONOCYTES % (AUTO) 8.4 %; NEUTROPHILS # (AUTO) 12.2 10^3/uL (1.5-6.6); NEUTROPHILS % (AUTO) 80.5 %; PLT - PLATELET COUNT 358 10^3/uL (130-450); RED BLOOD COUNT 3.31 10^6/uL (4.70-6.10); RED CELL DISTRIBUTION WIDTH 17.1 % (12.0-15.0); WHITE BLOOD COUNT 15.2 x10^3/uL (4.8-10.8)
[2022-06-15 06:11] LABS: CALCIUM 8.2 mg/dL (8.5-10.3); CREATININE 1.1 mg/dL (0.6-1.2); POTASSIUM 3.8 mmol/L (3.5-5.0)
--- NOTE | 2022-06-15 07:29 | PROVIDER PROGRESS NOTE ---
Assessment/Plan - Problem List (1) Severe anemia Assessment/Plan: Likely due to slow hematuria related to bladder cancer. Hemoglobin admission was 6.3. After 2 units of packed red blood cell transfusion hemoglobin this morning was 8.2. Will continue to monitor. (2) UTI (urinary tract infection) Qualifiers: Urinary tract infection type: acute cystitis Hematuria presence: with hematuria Qualified Code(s): N30.01 - Acute cystitis with hematuria Assessment/Plan: No growth on urine culture today. White blood cell count increased from 12.9 yesterday to 15 today. IV antibiotics changed. Rocephin discontinued. Vancomycin and Zosyn initiated. Blood cultures drawn earlier in the morning. Continue IV hydration with normal saline at 75 mL/h. (4) Bladder cancer Assessment/Plan: We will attempt to get more records from the primary care physician's office on 06/17/2022. It is reported that the patient opted for no further medical management. Patient's family would like further blood transfusions in the future when indicated. Will make a palliative care referral to follow in the outpatient setting. Patient scored 8 out of 30 on his cognitive eval on 06/14/2022. Will repeat cognitive eval on 06/17/2022. Patient's son was at bedside, they would like him to go to rehab once medically cleared to do so. After rehab they would like him to come back home weight more home health aide. (5) Abrasion of right elbow Qualifiers: Encounter type: initial encounter Qualified Code(s): S50.311A - Abrasion of right elbow, initial encounter Assessment/Plan: Likely due to being on the ground for 2 days. Wounds cleaned and dressed. (6) CHF due to valvular disease Assessment/Plan: Continue to hold spironolactone and valsartan while actively hydrating the patient. (7) Generalized weakness Assessment/Plan: Underlying comorbidities which include bladder cancer contributing to weakness. Patient seen by PT and OT. Recommendation for [facility] facility for re hab. Patient's son was at bedside, they would like him to go to rehab once medically cleared to do so. After rehab they would like him to come back home weight more home health aide. Referrals have been made for placement by social work. (8) Hyperlipidemia Qualifiers: Hyperlipidemia type: unspecified Qualified Code(s): E78.5 - Hyperlipidemia, unspecified Assessment/Plan: On atorvastatin 40 mg p.o. every afternoon. (9) Hypertension Qualifiers: Hypertension type: essential hypertension Assessment/Plan: Spironolactone and valsartan held while actively hydrating patient. 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 We will hold metformin while in the hospital. Accu-Cheks q. ACH S, sliding scale insulin. - Current Meds Current Meds: Current Medications Generic Name Dose Route Start Last Admin Trade Name Freq PRN Reason Stop Dose Admin Ceftriaxone Sodium 1 gm/ 100 mls @ 200 mls/hr 06/14/22 09:00 06/14/22 09:30 Sodium Chloride IV Infused DAILY ERIN Infusion Sodium Chloride 1,000 mls @ 75 mls/hr 06/13/22 18:30 06/15/22 06:55 Normal Saline 0.9% IV 0 mls/hr .[id number] ERIN Infusion Insulin Glargine 5 unit 06/14/22 09:00 06/14/22 21:02 Insulin Glargine 300 Unit/3 Ml Pen SUBQ 5 unit QPM ERIN Administration Insulin Human Lispro 1 - 9 unit 06/13/22 21:00 06/14/22 21:02 Insulin Lispro 300 Unit/3 Ml Pen SUBQ 3 unit 0800,1200,1700,2100 ERIN Administration Protocol Polyethylene Glycol 17 gm 06/14/22 09:00 06/14/22 08:14 Polyethylene Glycol 3350 17 Gm Packet PO 17 gm DAILY ERIN Administration Sodium Chloride 10 ml 06/13/22 17:00 06/15/22 02:50 Sodium Chloride Flush 0.9% 10 Ml Syringe IVP Not Given 0100,0900,1700 ERIN - Lab Result Fish Bone Diagrams: 06/15/22 05:38 06/15/22 05:38 - Additional Planning My Orders: My Active Orders 06/14/22 09:00 Insulin Glargine [Lantus Solostar] 5 unit SUBQ QPM cefTRIAXone [Rocephin] 1 gm Sodium Chloride 0.9% Minibag [Normal Saline 0.9% Minibag] 100 ml IV DAILY polyethylene glycoL 3350 [Miralax] 17 gm PO DAILY 06/14/22 10:32 Hand Irrigate Loving [RC] QSHIFT 06/14/22 11:34 Evaluate and Treat OT [OT] Routine 06/15/22 Blood Culture [CULTURE, BLOOD #1] [RM] Routine Blood Culture [CULTURE, BLOOD #2] [RM] Routine 06/16/22 05:00 BMP - BASIC METABOLIC PANEL [CHEM] DAILYLAB CBC - COMP BLD CT W/AUTO DIFF [HEME] DAILYLAB 06/17/22 05:00 BMP - BASIC METABOLIC PANEL [CHEM] DAILYLAB CBC - COMP BLD CT W/AUTO DIFF [HEME] DAILYLAB 06/18/22 05:00 BMP - BASIC METABOLIC PANEL [CHEM] DAILYLAB CBC - COMP BLD CT W/AUTO DIFF [HEME] DAILYLAB Subjective - Subjective Patient Reports: Other (He was resting comfortably in bed at time of exam. He denied any complaints. Later on his son was visiting. At that time he was in the bedside recliner. Loving catheter in place. Urine is faintly sanguinous) Objective Vital Signs: Vital Signs - 24 hr 06/14/22 06/14/22 06/14/22 07:44 11:28 12:20 Temperature 36.6 C 36.5 C Heart Rate [ 88 Activity] Heart Rate [ 87 88 Brachial] Heart Rate [ 86 Supine] Respiratory 18 20 Rate Blood Pressure 140/56 H [Activity] Blood Pressure 127/68 132/57 H [Right Brachial artery] Blood Pressure 134/51 H [Supine] O2 Saturation 98 93 06/14/22 06/14/22 06/15/22 14:35 19:49 00:56 Temperature 36.5 C 36.4 C L 36.4 C L Heart Rate [ Activity] Heart Rate [ 85 88 93 Brachial] Heart Rate [ Supine] Respiratory 22 18 20 Rate Blood Pressure [Activity] Blood Pressure 134/66 H 130/67 138/74 H [Right Brachial artery] Blood Pressure [Supine] O2 Saturation 96 100 95 06/15/22 05:27 Temperature 36.9 C Heart Rate [ Activity] Heart Rate [ 93 Brachial] Heart Rate [ Supine] Respiratory 18 Rate Blood Pressure [Activity] Blood Pressure 142/62 H [Right Brachial artery] Blood Pressure [Supine] O2 Saturation 92 Oxygen O2 Source Room air I&O (Last 24 Hrs): Intake and Output Totals x24h 08/25/22 08/26/22 08/27/22 23:59 23:59 23:59 Intake Total 2685.833 3408.75 1281.25 Output Total 600 1300 250 Balance 2085.833 2108.75 1031.25 General: Alert, No acute distress (Awake, oriented to place time self but not reason for presentation.) HEENT: PERRLA, EOMI Neck: Supple, No JVD Neuro: Alert, Non Focal Cardiovascular: Regular rate, Normal S1, Normal S2 Respiratory: Chest non-tender, No respiratory distress, Breath sounds nml Abdomen: Normal bowel sounds, Soft Extremities: No edema, No tenderness/swelling Skin: No rashes - Results Results: Laboratory Results WBC 15.2 x10^3/uL (4.8-10.8) H 06/15/22 05:38 RBC 3.31 10^6/uL (4.70-6.10) L 06/15/22 05:38 Hgb 8.2 g/dL (14.0-18.0) L 06/15/22 05:38 Hct 26.5 % (42.0-52.0) L 06/15/22 05:38 MCV 80.1 fL (80.0-94.0) 06/15/22 05:38 MCH 24.8 pg (27.0-31.0) L 06/15/22 05:38 MCHC 30.9 g/dL (32.0-36.0) L 06/15/22 05:38 RDW 17.1 % (12.0-15.0) H 06/15/22 05:38 Plt Count 358 10^3/uL (130-450) 06/15/22 05:38 MPV 8.6 fL (7.4-11.4) 06/15/22 05:38 Neut # (Auto) 12.2 10^3/uL (1.5-6.6) H 06/15/22 05:38 Lymph # (Auto) 1.3 10^3/uL (1.5-3.5) L 06/15/22 05:38 [place] # (Auto) 1.3 10^3/uL (0.0-1.0) H 06/15/22 05:38 Eos # (Auto) 0.2 10^3/uL (0.0-0.7) 06/15/22 05:38 Baso # (Auto) 0.1 10^3/uL (0.0-0.1) 06/15/22 05:38 Absolute Nucleated RBC 0.00 x10^3/uL 06/15/22 05:38 Nucleated RBC % 0.0 /100WBC 06/15/22 05:38 Sodium 137 mmol/L (135-145) 06/15/22 05:38 Potassium 3.8 mmol/L (3.5-5.0) 06/15/22 05:38 Chloride 110 mmol/L (101-111) 06/15/22 05:38 Carbon Dioxide 22 mmol/L (21-32) 06/15/22 05:38 Anion Gap 5.0 (6-13) L 06/15/22 05:38 BUN 22 mg/dL (6-20) H 06/15/22 05:38 Creatinine 1.1 mg/dL (0.6-1.2) 06/15/22 05:38 Estimated GFR (MDRD) 64 (>89) L 06/15/22 05:38 Glucose 123 mg/dL (70-100) H 06/15/22 05:38 Calcium 8.2 mg/dL (8.5-10.3) L 06/15/22 05:38 Total Bilirubin 0.9 mg/dL (0.2-1.0) 06/13/22 13:12 AST 22 IU/L (10-42) 06/13/22 13:12 ALT 18 IU/L (10-60) 06/13/22 13:12 Alkaline Phosphatase 79 IU/L (42-121) 06/13/22 13:12 Total Creatine Kinase 84 IU/L (22-269) 06/13/22 14:42 Total Protein 7.0 g/dL (6.7-8.2) 06/13/22 13:12 Albumin 3.1 g/dL (3.2-5.5) L 06/13/22 13:12 Globulin 3.9 g/dL (2.1-4.2) 06/13/22 13:12 Albumin/Globulin Ratio 0.8 (1.0-2.2) L 06/13/22 13:12 Lipase 23 U/L (22-51) 06/13/22 13:12 Urine Color RED/BLOODY 06/13/22 15:08 Urine Clarity HAZY (CLEAR) 06/13/22 15:08 Urine pH 5.5 PH (5.0-7.5) 06/13/22 15:08 Ur Specific [place] 1.015 (1.002-1.030) 06/13/22 15:08 Urine Protein 100 mg/dL (NEGATIVE) H 06/13/22 15:08 Urine Glucose (UA) 100 mg/dL (NEGATIVE) H 06/13/22 15:08 Urine Ketones TRACE mg/dL (NEGATIVE) 06/13/22 15:08 Urine Occult Blood LARGE (NEGATIVE) H 06/13/22 15:08 Urine Nitrite NEGATIVE (NEGATIVE) 06/13/22 15:08 Urine Bilirubin NEGATIVE (NEGATIVE) 06/13/22 15:08 Urine Urobilinogen 0.2 (NORMAL) E.U./dL (NORMAL) 06/13/22 15:08 Ur Leukocyte Esterase TRACE (NEGATIVE) H 06/13/22 15:08 Urine RBC 11-25 /HPF (0-5) H 06/13/22 15:08 Urine WBC 6-10 /HPF (0-3) H 06/13/22 15:08 Ur Squamous Epith Cells RARE Squamous (<= Few) 06/13/22 15:08 Amorphous Sediment Rare /LPF 06/13/22 15:08 Urine Bacteria Many /HPF (None Seen) H 06/13/22 15:08 Ur Microscopic Review INDICATED 06/13/22 15:08 Urine Culture Comments INDICATED 06/13/22 15:08 Nasal Adenovirus (PCR) NOT DETECTED 06/13/22 16:03 Nasal B. parapertussis DNA (PCR) NOT DETECTED 06/13/22 16:03 Nasal Coronavir 229E PCR NOT DETECTED 06/13/22 16:03 Nasal Coronavir HKU1 PCR NOT DETECTED 06/13/22 16:03 Nasal Coronavir NL63 PCR NOT DETECTED 06/13/22 16:03 Nasal Coronavir OC43 PCR NOT DETECTED 06/13/22 16:03 Nasal Enterovir/Rhinovir PCR NOT DETECTED 06/13/22 16:03 Nasal Influenza B PCR NOT DETECTED 06/13/22 16:03 Nasal Influenza A PCR NOT DETECTED 06/13/22 16:03 Nasal Parainfluen 1 PCR NOT DETECTED 06/13/22 16:03 Nasal Parainfluen 2 PCR NOT DETECTED 06/13/22 16:03 Nasal Parainfluen 3 PCR NOT DETECTED 06/13/22 16:03 Nasal Parainfluen 4 PCR NOT DETECTED 06/13/22 16:03 Nasal RSV (PCR) NOT DETECTED 06/13/22 16:03 Nasal B.pertussis DNA PCR NOT DETECTED 06/13/22 16:03 Nasal C.pneumoniae (PCR) NOT DETECTED 06/13/22 16:03 Harris Human Metapneumo PCR NOT DETECTED 06/13/22 16:03 Nasal M.pneumoniae (PCR) NOT DETECTED 06/13/22 16:03 Nasal SARS-CoV-2 (PCR) NOT DETECTED 06/13/22 16:03 Blood Type A NEGATIVE 06/13/22 14:42 Blood Type Recheck A NEGATIVE 06/13/22 13:12 Antibody Screen NEGATIVE 06/13/22 14:42 Crossmatch IS Only See Detail 06/13/22 14:42 ABX Reporting Has patient been on IV antibiotics over the past 48 hours?: Yes
[2022-06-15] MEDS: INSULIN LISPRO 300 UNIT/3 ML PEN SUBQ SCH ×4 (07:55→20:43)
[2022-06-15] MEDS: polyethylene glycoL 3350 17 GM PACKET PO SCH (08:47)
[2022-06-15] MEDS: cefTRIAXone 1 GM in SODIUM CHLORIDE 0.9% MINIBAG 100 ML IV SCH (09:13)
[2022-06-15] MEDS: methIMAzole 5 MG TABLET PO SCH (11:35)
[2022-06-15] MEDS: CARBIDOPA/LEVODOPA 25 MG/250 MG TABLET PO SCH ×2 (13:39→20:45)
[2022-06-15] MEDS ORDERED: PIPERACILLIN/TAZOBACTAM 3.375 GM in SODIUM CHLORIDE 0.9% MINIBAG 100 ML IV ONE (14:00)
[2022-06-15] MEDS: VANCOMYCIN INJ 1 GM, VANCOMYCIN INJ 500 MG in SODIUM CHLORIDE 0.9% 500 ML IV SCH (15:43)
[2022-06-15] MEDS: metFORMIN 500 MG TABLET PO SCH (17:09)
[2022-06-15] MEDS: PIPERACILLIN/TAZOBACTAM 3.375 GM in SODIUM CHLORIDE 0.9% MINIBAG 100 ML IV SCH (17:51)
[2022-06-15] MEDS: ATORVASTATIN 40 MG TABLET PO SCH (20:43)
[2022-06-15] MEDS: INSULIN GLARGINE 300 UNIT/3 ML PEN SUBQ SCH (20:44)
[2022-06-16] MEDS: SODIUM CHLORIDE 0.9% 1,000 ML IV SCH ×2 (01:19→15:26)
[2022-06-16] MEDS: SODIUM CHLORIDE FLUSH 0.9% 10 ML SYRINGE IVP SCH ×3 (01:19→16:02)
[2022-06-16] MEDS: PIPERACILLIN/TAZOBACTAM 3.375 GM in SODIUM CHLORIDE 0.9% MINIBAG 100 ML IV SCH ×3 (01:38→18:06)
[2022-06-16] MEDS: CARBIDOPA/LEVODOPA 25 MG/250 MG TABLET PO SCH ×3 (04:54→20:51)
[2022-06-16 05:10] LABS: BASOPHILS # (AUTO) 0.1 10^3/uL (0.0-0.1); BASOPHILS % (AUTO) 0.4 %; EOSINOPHILS # (AUTO) 0.3 10^3/uL (0.0-0.7); EOSINOPHILS % (AUTO) 2.3 %; HCT - HEMATOCRIT 26.8 % (42.0-52.0); HGB - HEMOGLOBIN 8.1 g/dL (14.0-18.0); LYMPHOCYTES % (AUTO) 7.4 %; MEAN CORPUSCULAR HEMOGLOBIN 24.5 pg (27.0-31.0); MEAN CORPUSCULAR HGB CONC 30.2 g/dL (32.0-36.0); MEAN PLATELET VOLUME 8.9 fL (7.4-11.4); MONOCYTES # (AUTO) 0.8 10^3/uL (0.0-1.0); MONOCYTES % (AUTO) 6.1 %; NEUTROPHILS # (AUTO) 11.4 10^3/uL (1.5-6.6); NEUTROPHILS % (AUTO) 83.3 %; PLT - PLATELET COUNT 359 10^3/uL (130-450); RED BLOOD COUNT 3.31 10^6/uL (4.70-6.10); RED CELL DISTRIBUTION WIDTH 17.7 % (12.0-15.0); WHITE BLOOD COUNT 13.7 x10^3/uL (4.8-10.8)
[2022-06-16 05:21] LABS: CREATININE 1.2 mg/dL (0.6-1.2)
[2022-06-16 05:34] LABS: CALCIUM 7.9 mg/dL (8.5-10.3); POTASSIUM 3.5 mmol/L (3.5-5.0)
[2022-06-16] MEDS ORDERED: ONDANSETRON 4 MG/2 ML VIAL IVP PRN (05:52)
[2022-06-16] MEDS: oxyCODONE 5 MG TABLET PO PRN ×2 (06:19→10:26)
--- NOTE | 2022-06-16 07:20 | PROVIDER PROGRESS NOTE ---
Assessment/Plan - Problem List (1) Severe anemia Assessment/Plan: Secondary to hematuria related to bladder cancer. Hemoglobin today was 8.2. Hematuria more pronounced today. We will continue to monitor. Will transfuse if hemoglobin is less than 7. (2) UTI (urinary tract infection) Qualifiers: Urinary tract infection type: acute cystitis Hematuria presence: with hematuria Qualified Code(s): N30.01 - Acute cystitis with hematuria Assessment/Plan: Blood cultures drawn yesterday are no growth to date. White blood cell count improved from 15.9 yesterday down to 13 today. Antibiotics broadened to include vancomycin and Zosyn. Rocephin was discontinued. Continue IV hydration with normal saline. (3) Syncope and collapse Assessment/Plan: Secondary to generalized weakness, anemia and comorbidities. IV hydration with normal saline. Patient was transfused 2 units of packed red blood cells. (4) Bladder cancer Assessment/Plan: We will attempt to get more records from the primary care physician's office on 06/17/2022. It is reported that the patient opted for no further medical management. Patient's family would like further blood transfusions in the future when indicated. Will make a palliative care referral to follow in the outpatient setting. Patient scored 8 out of 30 on his cognitive eval on 06/14/2022. Will repeat cognitive eval on 06/17/2022. Patient's son was at bedside, they would like him to go to rehab once medically cleared to do so. After rehab they would like him to come back home weight more home health aide. Patient had increased hematuria overnight. There is significant blood clots blocking the Loving catheter. Continuous bladder irrigation initiated today. (5) Abrasion of right elbow Qualifiers: Encounter type: initial encounter Qualified Code(s): S50.311A - Abrasion of right elbow, initial encounter Assessment/Plan: Likely due to being on the ground for 2 days. Wounds cleaned and dressed. (6) CHF due to valvular disease Assessment/Plan: Continue to hold spironolactone and valsartan while actively hydrating the patie nt. (7) Generalized weakness Assessment/Plan: Underlying comorbidities which include bladder cancer contributing to weakness. Patient seen by PT and OT. Recommendation for alf facility for rehab. Patient's son was at bedside, they would like him to go to rehab once medically cleared to do so. After rehab they would like him to come back home weight more home health aide. Referrals have been made for placement by social work. (8) Hyperlipidemia Qualifiers: Hyperlipidemia type: unspecified Qualified Code(s): E78.5 - Hyperlipidemia, unspecified Assessment/Plan: On atorvastatin 40 mg p.o. every afternoon. (9) Hypertension Qualifiers: Hypertension type: essential hypertension Assessment/Plan: Spironolactone and valsartan held while actively hydrating patient. 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 We will hold metformin while in the hospital. Accu-Cheks q. ACH S, sliding scale insulin. - Current Meds Current Meds: Current Medications Generic Name Dose Route Start Last Admin Trade Name Freq PRN Reason Stop Dose Admin Atorvastatin Calcium 40 mg 06/15/22 21:00 06/15/22 20:43 Atorvastatin 40 Mg Tablet PO 40 mg QPM ERIN Administration Carbidopa/Levodopa 1 tab 06/15/22 14:00 06/16/22 04:54 Carbidopa/Levodopa 25 Mg/250 Mg Tablet PO 1 tab TID ERIN Administration Sodium Chloride 1,000 mls @ 75 mls/hr 06/13/22 18:30 06/16/22 01:19 Normal Saline 0.9% IV 75 mls/hr .[id number] ERIN Administration Vancomycin HCl 1 gm/ 500 mls @ 250 mls/hr 06/15/22 16:00 06/15/22 17:45 Vancomycin HCl 500 mg/ Sodium IV Infused Chloride Q24H ERIN Infusion Piperacillin Sod/Tazobactam 100 mls @ 25 mls/hr 06/15/22 18:00 06/16/22 05:48 Sod 3.375 gm/ Sodium Chloride IV Infused Q8H ERIN Infusion Insulin Glargine 5 unit 06/14/22 09:00 06/15/22 20:44 Insulin Glargine 300 Unit/3 Ml Pen SUBQ 5 unit QPM ERIN Administration Insulin Human Lispro 1 - 9 unit 06/13/22 21:00 06/15/22 20:43 Insulin Lispro 300 Unit/3 Ml Pen SUBQ 3 unit 0800,1200,1700,2100 ERIN Administration Protocol Metformin HCl 1,000 mg 06/15/22 17:00 06/15/22 17:09 Metformin 500 Mg Tablet PO 1,000 mg BIDWM ERIN Administration Methimazole 10 mg 06/15/22 11:00 06/15/22 11:35 Methimazole 5 Mg Tablet PO 10 mg DAILYWM ERIN Administration Oxycodone HCl 5 mg 06/16/22 05:52 06/16/22 06:19 Oxycodone 5 Mg Tablet PO 5 mg Q4HR PRN Administration Pain 5 to 7 Polyethylene Glycol 17 gm 06/14/22 09:00 06/15/22 08:47 Polyethylene Glycol 3350 17 Gm Packet PO 17 gm DAILY ERIN Administration Sodium Chloride 10 ml 06/13/22 17:00 06/16/22 01:19 Sodium Chloride Flush 0.9% 10 Ml Syringe IVP Not Given 0100,0900,1700 ERIN - Lab Result Fish Bone Diagrams: 06/16/22 04:55 06/16/22 04:55 - Additional Planning My Orders: My Active Orders 06/15/22 08:04 Blood Culture [CULTURE, BLOOD #1] [] Routine 06/15/22 08:10 Blood Culture [CULTURE, BLOOD #2] [] Routine 06/15/22 11:00 methIMAzole [Tapazole] 10 mg PO DAILYWM 06/15/22 14:00 Carbidopa/Levodopa 25/250 [Sinemet 25 mg/250 mg] 1 tab PO TID 06/15/22 16:00 Vancomycin Inj [Vancomycin] 1 gm Vancomycin Inj [Vancomycin Hcl] 500 mg Sodium Chloride 0.9% [Normal Saline 0.9%] 500 ml IV Q24H 06/15/22 17:00 metFORMIN [Glucophage] 1,000 mg PO BIDWM 06/15/22 18:00 Piperacillin/Tazobactam [Zosyn] 3.375 gm Sodium Chloride 0.9% Minibag [Normal Saline 0.9% Minibag] 100 ml IV Q8H 06/15/22 21:00 Atorvastatin [Lipitor] 40 mg PO QPM 06/16/22 05:51 Acetaminophen [Tylenol] 650 mg PO Q4HR PRN 06/16/22 05:52 Ondansetron Inj [Zofran Inj] 4 mg IVP Q6HR PRN oxyCODONE [Roxicodone] 5 mg PO Q4HR PRN 06/17/22 05:00 BMP - BASIC METABOLIC PANEL [CHEM] DAILYLAB CBC - COMP BLD CT W/AUTO DIFF [HEME] DAILYLAB 06/18/22 05:00 BMP - BASIC METABOLIC PANEL [CHEM] DAILYLAB CBC - COMP BLD CT W/AUTO DIFF [HEME] DAILYLAB Subjective - Subjective Patient Reports: Other (Patient had increased hematuria overnight. There was significant blood clots clogging the Loving catheter. He complained of significant suprapubic pain.) Objective Vital Signs: Vital Signs - 24 hr 06/15/22 06/15/22 06/15/22 07:56 11:39 15:42 Temperature 36.5 C 36.3 C L 36.7 C Heart Rate [ 90 85 81 Brachial] Respiratory 18 20 20 Rate Blood Pressure 139/67 H 127/52 L 130/58 L [Right Brachial artery] O2 Saturation 94 96 96 06/15/22 06/15/22 06/16/22 20:37 23:32 04:39 Temperature 36.4 C L 36.4 C L 36.9 C Heart Rate [ 78 87 95 Brachial] Respiratory 20 20 20 Rate Blood Pressure 115/56 L 140/61 H 140/58 H [Right Brachial artery] O2 Saturation 99 99 95 Oxygen O2 Source Room air I&O (Last 24 Hrs): Intake and Output Totals x24h 06/14/22 06/15/22 06/16/22 23:59 23:59 23:59 Intake Total 3408.75 5495.00 100 Output Total 1300 1675 450 Balance 2108.75 3820.00 -350 General: Alert, Oriented x3, Moderate distress HEENT: PERRLA, EOMI Neck: Supple, No JVD Neuro: Alert, Non Focal, Oriented Times 3 Cardiovascular: Regular rate Respiratory: Chest non-tender, No respiratory distress, Breath sounds nml Abdomen: Normal bowel sounds, Soft, Other (suprapubic tenderness) Extremities: No clubbing, No cyanosis, No edema, No tenderness/swelling Skin: No rashes, No breakdown - Results Results: Laboratory Results WBC 13.7 x10^3/uL (4.8-10.8) H 06/16/22 04:55 RBC 3.31 10^6/uL (4.70-6.10) L 06/16/22 04:55 Hgb 8.1 g/dL (14.0-18.0) L 06/16/22 04:55 Hct 26.8 % (42.0-52.0) L 06/16/22 04:55 MCV 81.0 fL (80.0-94.0) 06/16/22 04:55 MCH 24.5 pg (27.0-31.0) L 06/16/22 04:55 MCHC 30.2 g/dL (32.0-36.0) L 06/16/22 04:55 RDW 17.7 % (12.0-15.0) H 06/16/22 04:55 Plt Count 359 10^3/uL (130-450) 06/16/22 04:55 MPV 8.9 fL (7.4-11.4) 06/16/22 04:55 Neut # (Auto) 11.4 10^3/uL (1.5-6.6) H 06/16/22 04:55 Lymph # (Auto) 1.0 10^3/uL (1.5-3.5) L 06/16/22 04:55 [place] # (Auto) 0.8 10^3/uL (0.0-1.0) 06/16/22 04:55 Eos # (Auto) 0.3 10^3/uL (0.0-0.7) 06/16/22 04:55 Baso # (Auto) 0.1 10^3/uL (0.0-0.1) 06/16/22 04:55 Absolute Nucleated RBC 0.00 x10^3/uL 06/16/22 04:55 Nucleated RBC % 0.0 /100WBC 06/16/22 04:55 Sodium 135 mmol/L (135-145) 06/16/22 04:55 Potassium 3.5 mmol/L (3.5-5.0) 06/16/22 04:55 Chloride 106 mmol/L (101-111) 06/16/22 04:55 Carbon Dioxide 20 mmol/L (21-32) L 06/16/22 04:55 Anion Gap 9.0 (6-13) 06/16/22 04:55 BUN 19 mg/dL (6-20) 06/16/22 04:55 Creatinine 1.2 mg/dL (0.6-1.2) 06/16/22 04:55 Estimated GFR (MDRD) 58 (>89) L 06/16/22 04:55 Glucose 220 mg/dL (70-100) H 06/16/22 04:55 Calcium 7.9 mg/dL (8.5-10.3) L 06/16/22 04:55 Total Bilirubin 0.9 mg/dL (0.2-1.0) 06/13/22 13:12 AST 22 IU/L (10-42) 06/13/22 13:12 ALT 18 IU/L (10-60) 06/13/22 13:12 Alkaline Phosphatase 79 IU/L (42-121) 06/13/22 13:12 Total Creatine Kinase 84 IU/L (22-269) 06/13/22 14:42 Total Protein 7.0 g/dL (6.7-8.2) 06/13/22 13:12 Albumin 3.1 g/dL (3.2-5.5) L 06/13/22 13:12 Globulin 3.9 g/dL (2.1-4.2) 06/13/22 13:12 Albumin/Globulin Ratio 0.8 (1.0-2.2) L 06/13/22 13:12 Lipase 23 U/L (22-51) 06/13/22 13:12 Procalcitonin 0.10 ng/mL (<0.5) 06/15/22 05:38 Urine Color RED/BLOODY 06/13/22 15:08 Urine Clarity HAZY (CLEAR) 06/13/22 15:08 Urine pH 5.5 PH (5.0-7.5) 06/13/22 15:08 Ur Specific [place] 1.015 (1.002-1.030) 06/13/22 15:08 Urine Protein 100 mg/dL (NEGATIVE) H 06/13/22 15:08 Urine Glucose (UA) 100 mg/dL (NEGATIVE) H 06/13/22 15:08 Urine Ketones TRACE mg/dL (NEGATIVE) 06/13/22 15:08 Urine Occult Blood LARGE (NEGATIVE) H 06/13/22 15:08 Urine Nitrite NEGATIVE (NEGATIVE) 06/13/22 15:08 Urine Bilirubin NEGATIVE (NEGATIVE) 06/13/22 15:08 Urine Urobilinogen 0.2 (NORMAL) E.U./dL (NORMAL) 06/13/22 15:08 Ur Leukocyte Esterase TRACE (NEGATIVE) H 06/13/22 15:08 Urine RBC 11-25 /HPF (0-5) H 06/13/22 15:08 Urine WBC 6-10 /HPF (0-3) H 06/13/22 15:08 Ur Squamous Epith Cells RARE Squamous (<= Few) 06/13/22 15:08 Amorphous Sediment Rare /LPF 06/13/22 15:08 Urine Bacteria Many /HPF (None Seen) H 06/13/22 15:08 Ur Microscopic Review INDICATED 06/13/22 15:08 Urine Culture Comments INDICATED 06/13/22 15:08 Nasal Adenovirus (PCR) NOT DETECTED 06/13/22 16:03 Nasal B. parapertussis DNA (PCR) NOT DETECTED 06/13/22 16:03 Nasal Coronavir 229E PCR NOT DETECTED 06/13/22 16:03 Nasal Coronavir HKU1 PCR NOT DETECTED 06/13/22 16:03 Nasal Coronavir NL63 PCR NOT DETECTED 06/13/22 16:03 Nasal Coronavir OC43 PCR NOT DETECTED 06/13/22 16:03 Nasal Enterovir/Rhinovir PCR NOT DETECTED 06/13/22 16:03 Nasal Influenza B PCR NOT DETECTED 06/13/22 16:03 Nasal Influenza A PCR NOT DETECTED 06/13/22 16:03 Nasal Parainfluen 1 PCR NOT DETECTED 06/13/22 16:03 Nasal Parainfluen 2 PCR NOT DETECTED 06/13/22 16:03 Nasal Parainfluen 3 PCR NOT DETECTED 06/13/22 16:03 Nasal Parainfluen 4 PCR NOT DETECTED 06/13/22 16:03 Nasal RSV (PCR) NOT DETECTED 06/13/22 16:03 Nasal B.pertussis DNA PCR NOT DETECTED 06/13/22 16:03 Nasal C.pneumoniae (PCR) NOT DETECTED 06/13/22 16:03 Harris Human Metapneumo PCR NOT DETECTED 06/13/22 16:03 Nasal M.pneumoniae (PCR) NOT DETECTED 06/13/22 16:03 Nasal SARS-CoV-2 (PCR) NOT DETECTED 06/13/22 16:03 Blood Type A NEGATIVE 06/13/22 14:42 Blood Type Recheck A NEGATIVE 06/13/22 13:12 Antibody Screen NEGATIVE 06/13/22 14:42 Crossmatch IS Only See Detail 06/13/22 14:42 ABX Reporting Has patient been on IV antibiotics over the past 48 hours?: Yes
[2022-06-16] MEDS: INSULIN LISPRO 300 UNIT/3 ML PEN SUBQ SCH ×4 (07:56→20:29)
[2022-06-16] MEDS ORDERED: HYDROmorphone 0.5 MG/0.5 ML SYRINGE IVP STA (08:09)
[2022-06-16] MEDS ORDERED: LIDOCAINE 2% URO-JET 5 ML SYRINGE UR ONE ×2 (08:09→11:27)
[2022-06-16] MEDS ORDERED: LACTULOSE 10 GM /15 ML UDC PO STA (08:10)
[2022-06-16] MEDS: metFORMIN 500 MG TABLET PO SCH (09:07)
[2022-06-16] MEDS: polyethylene glycoL 3350 17 GM PACKET PO SCH ×2 (09:07→15:05)
[2022-06-16] MEDS: methIMAzole 5 MG TABLET PO SCH (09:12)
[2022-06-16] MEDS ORDERED: HYDROmorphone 0.5 MG/0.5 ML SYRINGE IVP PRN (09:51)
[2022-06-16] MEDS: SODIUM CHLORIDE FLUSH 0.9% 10 ML SYRINGE IVP PRN ×2 (10:50→11:54)
--- NOTE | 2022-06-16 11:01 | CT Report ---
PROCEDURE: Abdomen/Pelvis W INDICATIONS: hematuria CONTRAST: IV CONTRAST: Optiray 320 ml: 100 PO CONTRAST: *NO PO CONTRAST TECHNIQUE: After the administration of IV contrast, 5 mm thick sections acquired from the diaphragms to the symp hysis. 5 mm thick coronal and sagittal reformats were acquired. For radiation dose reduction, the f ollowing was used: automated exposure control, adjustment of mA and/or kV according to patient size. COMPARISON: None. FINDINGS: Image quality: Excellent. ABDOMEN: Lung bases: Small bilateral pleural effusions are present. Heart size is normal. Solid organs: Liver and spleen are normal in size and enhancement. Gallbladder is within normal manning its Biliary system is non dilated. Pancreas enhances normally. No adrenal nodules. Kidneys demons trate normal size and enhancement. Mild bilateral hydronephrosis and ureteral dilatation is present. Peritoneum and bowel: Bowel loops demonstrate normal wall thickness and caliber. No free fluid or a ir. Nodes and vessels: No retroperitoneal or mesenteric adenopathy by size criteria. Aorta and inferior vena cava are normal in size. Miscellaneous: There is a small fluid containing umbilical hernia measuring 25 mm diameter. PELVIS: Genitourinary: Loving catheter is present. Enhancing mass within the left aspect of the urinary bladde r is present, measuring roughly 80 mm diameter. Miscellaneous: No inguinal hernias or adenopathy. Bones: No suspicious bony lesions. No vertebral body compression fractures. IMPRESSION: 1. Left-sided urinary bladder mass. 2. Mild bilateral hydronephrosis. 3. Small bilateral pleural effusions. Reviewed by: Adilia Marino MD on 06/16/2022 11:00 AM PDT Approved by: Adilia Marino MD on 06/16/2022 11:00 AM PDT Station ID: [id number]
[2022-06-16] MEDS ORDERED: HYDROmorphone 1 MG/ML CARPUJECT IVP STA (11:27)
[2022-06-16] MEDS: PHENAZOPYRIDINE 100 MG TABLET PO SCH ×2 (15:46→20:51)
[2022-06-16] MEDS: VANCOMYCIN INJ 1 GM, VANCOMYCIN INJ 500 MG in SODIUM CHLORIDE 0.9% 500 ML IV SCH (16:02)
[2022-06-16] MEDS: ATORVASTATIN 40 MG TABLET PO SCH (20:51)
[2022-06-16] MEDS: ACETAMINOPHEN 325 MG TABLET PO PRN (20:51)
[2022-06-16] MEDS: INSULIN GLARGINE 300 UNIT/3 ML PEN SUBQ SCH (20:51)
[2022-06-17] MEDS: PIPERACILLIN/TAZOBACTAM 3.375 GM in SODIUM CHLORIDE 0.9% MINIBAG 100 ML IV SCH ×2 (01:54→14:29)
[2022-06-17] MEDS: SODIUM CHLORIDE FLUSH 0.9% 10 ML SYRINGE IVP SCH ×3 (01:55→16:51)
[2022-06-17] MEDS: SODIUM CHLORIDE 0.9% 1,000 ML IV SCH (03:13)
[2022-06-17 06:01] LABS: BASOPHILS % (AUTO) 0.3 %; EOSINOPHILS # (AUTO) 0.2 10^3/uL (0.0-0.7); EOSINOPHILS % (AUTO) 1.3 %; HCT - HEMATOCRIT 22.4 % (42.0-52.0); LYMPHOCYTES # (AUTO) 0.6 10^3/uL (1.5-3.5); LYMPHOCYTES % (AUTO) 4.2 %; MEAN CORPUSCULAR HEMOGLOBIN 24.8 pg (27.0-31.0); MEAN CORPUSCULAR HGB CONC 30.4 g/dL (32.0-36.0); MEAN CORPUSCULAR VOLUME 81.8 fL (80.0-94.0); MEAN PLATELET VOLUME 8.9 fL (7.4-11.4); MONOCYTES % (AUTO) 6.9 %; NEUTROPHILS # (AUTO) 12.9 10^3/uL (1.5-6.6); NEUTROPHILS % (AUTO) 86.9 %; PLT - PLATELET COUNT 312 10^3/uL (130-450); RED BLOOD COUNT 2.74 10^6/uL (4.70-6.10); RED CELL DISTRIBUTION WIDTH 17.9 % (12.0-15.0); WHITE BLOOD COUNT 14.9 x10^3/uL (4.8-10.8)
[2022-06-17 06:07] LABS: HGB - HEMOGLOBIN 6.8 g/dL (14.0-18.0)
[2022-06-17 06:12] LABS: CALCIUM 8.1 mg/dL (8.5-10.3); CREATININE 1.1 mg/dL (0.6-1.2); POTASSIUM 3.4 mmol/L (3.5-5.0)
[2022-06-17] MEDS: CARBIDOPA/LEVODOPA 25 MG/250 MG TABLET PO SCH ×3 (06:31→21:15)
[2022-06-17] MEDS: PHENAZOPYRIDINE 100 MG TABLET PO SCH ×3 (06:31→21:15)
[2022-06-17] MEDS ORDERED: POTASSIUM CHLORIDE 20 MEQ TABLET PO ONE (07:25)
--- NOTE | 2022-06-17 08:56 | PROVIDER PROGRESS NOTE ---
Assessment/Plan - Problem List (1) Severe anemia Assessment/Plan: Secondary to hematuria related to bladder cancer. Hemoglobin today was 6.8. Patient transfused 1 unit of packed red blood cells Continuous bladder irrigation was initiated yesterday. This was after a 24-gauge Loving was placed. It was working successfully until this morning when it stopped likely due to a clot in the Loving. Urine is currently cranberry colored. I have reached out to [facility] for possible transfer because the patient's primary care physician and urologist is associated with [facility]. However there is no bed availability currently. I spoke with urologist special forces communications sergeant at [facility]: Dr. Bin Sampson at [phone] He would like to review the CT of the abdomen pelvis done yesterday before call ing back. He stated that cranberry colored urine indicates that the patient is no longer bleeding heavily. And to continue continuous bladder irrigation for now. Patient will need to follow-up to have the bladder mass seen on CT scan done yesterday evaluated. We will continue to monitor. Will transfuse if hemoglobin is less than 7. (2) UTI (urinary tract infection) Qualifiers: Urinary tract infection type: acute cystitis Hematuria presence: with hematuria Qualified Code(s): N30.01 - Acute cystitis with hematuria Assessment/Plan: Blood cultures drawn yesterday are no growth to date. White blood cell count improved from 14.9 Antibiotics broadened to include vancomycin and Zosyn. Rocephin was discontinued. Continue IV hydration with normal saline. (3) Bladder cancer Assessment/Plan: CT of the abdomen/pelvis done yesterday showed 80 mm Left-sided urinary bladder mass. There was mild bilateral hydronephrosis. Continuous bladder irrigation was initiated yesterday due to hematuria. This was after a 24-gauge Loving was placed. It was working successfully until this morning when it stopped likely due to a clot in the Loving. Urine is currently cranberry colored. I have reached out to [facility] for possible transfer because the patient's primary care physician and urologist is associated with [facility]. However there is no bed availability currently. I spoke with urologist special forces communications sergeant at [facility]: Dr. Bin Sampson at [phone] He would like to review the CT of the abdomen pelvis done yesterday before calling back. He stated that cranberry colored urine indicates that the patient is no longer bleeding heavily. And to continue continuous bladder irrigation for now. Patient will need to have the bladder mass evaluated. We will continue to monitor. Will transfuse if hemoglobin is less than 7. (5) Abrasion of right elbow Qualifiers: Encounter type: initial encounter Qualified Code(s): S50.311A - Abrasion of right elbow, initial encounter Assessment/Plan: Likely secondary to fall. Healing well. (6) CHF due to valvular disease Assessment/Plan: Continue to hold spironolactone and valsartan while actively hydrating the patient. (7) Generalized weakness Assessment/Plan: Underlying comorbidities which include bladder cancer contributing to weakness. Patient seen by PT and OT. Recommendation for residential facility for rehab. Patient's son was at bedside, they would like him to go to rehab once medically cleared to do so. After rehab they would like him to come back home weight more home health aide. Referrals have been made for placement by social work. (8) Hyperlipidemia Qualifiers: Hyperlipidemia type: unspecified Qualified Code(s): E78.5 - Hyperlipidemia, unspecified Assessment/Plan: On atorvastatin 40 mg p.o. every afternoon. (9) Hypertension Qualifiers: Hypertension type: essential hypertension Assessment/Plan: Spironolactone and valsartan held while actively hydrating patient. 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 It is held for [address] of the abdomen pelvis with contrast was done yesterday. Lantus 5 unit subcu nightly Accu-Cheks before every meal and at bedtime, sliding scale insulin. (11) Parkinson's disease Assessment/Plan: On carbidopa/levodopa (12) Hyperthyroidism Assessment/Plan: On methimazole 10 mg p.o. daily - Current Meds Current Meds: Current Medications Generic Name Dose Route Start Last Admin Trade Name Freq PRN Reason Stop Dose Admin Acetaminophen 650 mg 06/16/22 05:51 06/16/22 20:51 Acetaminophen 325 Mg Tablet PO 650 mg Q4HR PRN Administration Pain 1 to 4, or Fever Atorvastatin Calcium 40 mg 06/15/22 21:00 06/16/22 20:51 Atorvastatin 40 Mg Tablet PO 40 mg QPM ERIN Administration Carbidopa/Levodopa 1 tab 06/15/22 14:00 06/17/22 06:31 Carbidopa/Levodopa 25 Mg/250 Mg Tablet PO 1 tab TID ERIN Administration Hydromorphone HCl 0.5 mg 06/16/22 09:51 06/17/22 06:29 Hydromorphone 0.5 Mg/0.5 Ml Syringe IVP 0.5 mg Q4H PRN Administration PAIN Sodium Chloride 1,000 mls @ 75 mls/hr 06/13/22 18:30 06/17/22 03:13 Normal Saline 0.9% IV 75 mls/hr .[id number] ERIN Administration Vancomycin HCl 1 gm/ 500 mls @ 250 mls/hr 06/15/22 16:00 06/16/22 18:05 Vancomycin HCl 500 mg/ Sodium IV Infused Chloride Q24H ERIN Infusion Piperacillin Sod/Tazobactam 100 mls @ 25 mls/hr 06/15/22 18:00 06/17/22 05:54 Sod 3.375 gm/ Sodium Chloride IV Infused Q8H ERIN Infusion Insulin Glargine 5 unit 06/14/22 09:00 06/16/22 20:51 Insulin Glargine 300 Unit/3 Ml Pen SUBQ 5 unit QPM ERIN Administration Insulin Human Lispro 1 - 9 unit 06/13/22 21:00 06/16/22 20:29 Insulin Lispro 300 Unit/3 Ml Pen SUBQ Not Given 0800,1200,1700,2100 [facility] Protocol Methimazole 10 mg 06/15/22 11:00 06/16/22 09:12 Methimazole 5 Mg Tablet PO 10 mg DAILYWM ERIN Administration Oxycodone HCl 5 mg 06/16/22 05:52 06/16/22 10:26 Oxycodone 5 Mg Tablet PO 5 mg Q4HR PRN Administration Pain 5 to 7 Phenazopyridine HCl 100 mg 06/16/22 15:00 06/17/22 06:31 Phenazopyridine 100 Mg Tablet PO 06/18/22 06:01 100 mg TID ERIN Administration Polyethylene Glycol 17 gm 06/14/22 09:00 06/16/22 15:05 Polyethylene Glycol 3350 17 Gm Packet PO Not Given DAILY ERIN Sodium Chloride 10 ml 06/13/22 17:06 06/16/22 11:54 Sodium Chloride Flush 0.9% 10 Ml Syringe IVP 10 ml PRN PRN Administration NEEDED PER PROVIDER ORDERS Sodium Chloride 10 ml 06/13/22 17:00 06/17/22 01:55 Sodium Chloride Flush 0.9% 10 Ml Syringe IVP Not Given 0100,0900,1700 ERIN - Lab Result Fish Bone Diagrams: 06/17/22 05:35 06/17/22 05:35 - Additional Planning My Orders: My Active Orders 06/16/22 09:51 HYDROmorphone 0.5MG SYRINGE [Dilaudid 0.5MG Syringe] 0.5 mg IVP Q4H PRN 06/16/22 15:00 Phenazopyridine [Pyridium] 100 mg PO TID 06/17/22 07:24 Transfuse RBCs Leukoreduced [RC] .ONCE 06/17/22 07:39 RBC, LEUKOREDUCED Routine TYPE AND SCREEN Routine 06/18/22 05:00 BMP - BASIC METABOLIC PANEL [CHEM] DAILYLAB CBC - COMP BLD CT W/AUTO DIFF [HEME] DAILYLAB Subjective - Subjective Patient Reports: Other (He was resting comfortably in bed at time of exam. He denied any discomfort at the moment. Continuous bladder irrigation set up is in place however currently not draining likely due to clot in the Loving. Urine in Loving bag is cranberry colored) Objective Vital Signs: Vital Signs - 24 hr 06/16/22 06/16/22 06/16/22 13:21 15:51 20:26 Temperature 36.2 C L 36.2 C L 36.3 C L Heart Rate [ 88 92 94 Brachial] Respiratory 16 17 21 Rate Blood Pressure [Left Brachial artery] Blood Pressure 129/58 L 106/68 121/64 [Right Brachial artery] O2 Saturation 97 95 92 06/16/22 06/17/22 06/17/22 23:45 05:40 07:33 Temperature 36.3 C L 36.3 C L 36.6 C Heart Rate [ 81 90 87 Brachial] Respiratory 20 20 20 Rate Blood Pressure 92/48 L 123/51 L 118/47 L [Left Brachial artery] Blood Pressure [Right Brachial artery] O2 Saturation 97 95 94 Oxygen O2 Source Room air I&O (Last 24 Hrs): Intake and Output Totals x24h 06/15/22 06/16/22 06/17/22 23:59 23:59 23:59 Intake Total 5495.00 59767.50 2676.25 Output Total 5552 3019 2150 Balance 3820.00 3662.50 526.25 General: Alert, Oriented x3, No acute distress HEENT: PERRLA, EOMI Neck: Supple, No JVD Neuro: Alert Cardiovascular: Regular rate, Normal S1, Normal S2 Respiratory: Chest non-tender, No respiratory distress, Breath sounds nml Abdomen: Normal bowel sounds, Soft, No tenderness, No masses Skin: No rashes, No breakdown, No significant lesion - Results Results: Laboratory Results WBC 14.9 x10^3/uL (4.8-10.8) H 06/17/22 05:35 RBC 2.74 10^6/uL (4.70-6.10) L 06/17/22 05:35 Hgb 6.8 g/dL (14.0-18.0) L* 06/17/22 05:35 Hct 22.4 % (42.0-52.0) L 06/17/22 05:35 MCV 81.8 fL (80.0-94.0) 06/17/22 05:35 MCH 24.8 pg (27.0-31.0) L 06/17/22 05:35 MCHC 30.4 g/dL (32.0-36.0) L 06/17/22 05:35 RDW 17.9 % (12.0-15.0) H 06/17/22 05:35 Plt Count 312 10^3/uL (130-450) 06/17/22 05:35 MPV 8.9 fL (7.4-11.4) 06/17/22 05:35 Neut # (Auto) 12.9 10^3/uL (1.5-6.6) H 06/17/22 05:35 Lymph # (Auto) 0.6 10^3/uL (1.5-3.5) L 06/17/22 05:35 [place] # (Auto) 1.0 10^3/uL (0.0-1.0) 06/17/22 05:35 Eos # (Auto) 0.2 10^3/uL (0.0-0.7) 06/17/22 05:35 Baso # (Auto) 0.0 10^3/uL (0.0-0.1) 06/17/22 05:35 Absolute Nucleated RBC 0.00 x10^3/uL 06/17/22 05:35 Nucleated RBC % 0.0 /100WBC 06/17/22 05:35 Sodium 141 mmol/L (135-145) 06/17/22 05:35 Potassium 3.4 mmol/L (3.5-5.0) L 06/17/22 05:35 Chloride 114 mmol/L (101-111) H 06/17/22 05:35 Carbon Dioxide 20 mmol/L (21-32) L 06/17/22 05:35 Anion Gap 7.0 (6-13) 06/17/22 05:35 BUN 15 mg/dL (6-20) 06/17/22 05:35 Creatinine 1.1 mg/dL (0.6-1.2) 06/17/22 05:35 Estimated GFR (MDRD) 64 (>89) L 06/17/22 05:35 Glucose 146 mg/dL (70-100) H 06/17/22 05:35 Calcium 8.1 mg/dL (8.5-10.3) L 06/17/22 05:35 Total Bilirubin 0.9 mg/dL (0.2-1.0) 06/13/22 13:12 AST 22 IU/L (10-42) 06/13/22 13:12 ALT 18 IU/L (10-60) 06/13/22 13:12 Alkaline Phosphatase 79 IU/L (42-121) 06/13/22 13:12 Total Creatine Kinase 84 IU/L (22-269) 06/13/22 14:42 Total Protein 7.0 g/dL (6.7-8.2) 06/13/22 13:12 Albumin 3.1 g/dL (3.2-5.5) L 06/13/22 13:12 Globulin 3.9 g/dL (2.1-4.2) 06/13/22 13:12 Albumin/Globulin Ratio 0.8 (1.0-2.2) L 06/13/22 13:12 Lipase 23 U/L (22-51) 06/13/22 13:12 Procalcitonin 0.10 ng/mL (<0.5) 06/15/22 05:38 Urine Color RED/BLOODY 06/13/22 15:08 Urine Clarity HAZY (CLEAR) 06/13/22 15:08 Urine pH 5.5 PH (5.0-7.5) 06/13/22 15:08 Ur Specific [place] 1.015 (1.002-1.030) 06/13/22 15:08 Urine Protein 100 mg/dL (NEGATIVE) H 06/13/22 15:08 Urine Glucose (UA) 100 mg/dL (NEGATIVE) H 06/13/22 15:08 Urine Ketones TRACE mg/dL (NEGATIVE) 06/13/22 15:08 Urine Occult Blood LARGE (NEGATIVE) H 06/13/22 15:08 Urine Nitrite NEGATIVE (NEGATIVE) 06/13/22 15:08 Urine Bilirubin NEGATIVE (NEGATIVE) 06/13/22 15:08 Urine Urobilinogen 0.2 (NORMAL) E.U./dL (NORMAL) 06/13/22 15:08 Ur Leukocyte Esterase TRACE (NEGATIVE) H 06/13/22 15:08 Urine RBC 11-25 /HPF (0-5) H 06/13/22 15:08 Urine WBC 6-10 /HPF (0-3) H 06/13/22 15:08 Ur Squamous Epith Cells RARE Squamous (<= Few) 06/13/22 15:08 Amorphous Sediment Rare /LPF 06/13/22 15:08 Urine Bacteria Many /HPF (None Seen) H 06/13/22 15:08 Ur Microscopic Review INDICATED 06/13/22 15:08 Urine Culture Comments INDICATED 06/13/22 15:08 Nasal Adenovirus (PCR) NOT DETECTED 06/13/22 16:03 Nasal B. parapertussis DNA (PCR) NOT DETECTED 06/13/22 16:03 Nasal Coronavir 229E PCR NOT DETECTED 06/13/22 16:03 Nasal Coronavir HKU1 PCR NOT DETECTED 06/13/22 16:03 Nasal Coronavir NL63 PCR NOT DETECTED 06/13/22 16:03 Nasal Coronavir OC43 PCR NOT DETECTED 06/13/22 16:03 Nasal Enterovir/Rhinovir PCR NOT DETECTED 06/13/22 16:03 Nasal Influenza B PCR NOT DETECTED 06/13/22 16:03 Nasal Influenza A PCR NOT DETECTED 06/13/22 16:03 Nasal Parainfluen 1 PCR NOT DETECTED 06/13/22 16:03 Nasal Parainfluen 2 PCR NOT DETECTED 06/13/22 16:03 Nasal Parainfluen 3 PCR NOT DETECTED 06/13/22 16:03 Nasal Parainfluen 4 PCR NOT DETECTED 06/13/22 16:03 Nasal RSV (PCR) NOT DETECTED 06/13/22 16:03 Nasal B.pertussis DNA PCR NOT DETECTED 06/13/22 16:03 Nasal C.pneumoniae (PCR) NOT DETECTED 06/13/22 16:03 Harris Human Metapneumo PCR NOT DETECTED 06/13/22 16:03 Nasal M.pneumoniae (PCR) NOT DETECTED 06/13/22 16:03 Nasal SARS-CoV-2 (PCR) NOT DETECTED 06/13/22 16:03 Blood Type A NEGATIVE 06/17/22 07:39 Blood Type Recheck A NEGATIVE 06/13/22 13:12 Antibody Screen NEGATIVE 06/17/22 07:39 Crossmatch IS Only See Detail 06/17/22 07:39 ABX Reporting Has patient been on IV antibiotics over the past 48 hours?: Yes
[2022-06-17] MEDS: ACETAMINOPHEN 325 MG TABLET PO PRN (09:06)
[2022-06-17] MEDS: INSULIN LISPRO 300 UNIT/3 ML PEN SUBQ SCH ×4 (09:06→21:16)
[2022-06-17] MEDS: methIMAzole 5 MG TABLET PO SCH (09:07)
[2022-06-17] MEDS: polyethylene glycoL 3350 17 GM PACKET PO SCH (09:07)
--- NOTE | 2022-06-17 11:06 | PROVIDER PROGRESS NOTE ---
Assessment/Plan - Problem List (2) UTI (urinary tract infection) Qualifiers: Urinary tract infection type: acute cystitis Hematuria presence: with hematuria Qualified Code(s): N30.01 - Acute cystitis with hematuria (5) Abrasion of right elbow Qualifiers: Encounter type: initial encounter Qualified Code(s): S50.311A - Abrasion of right elbow, initial encounter (8) Hyperlipidemia Qualifiers: Hyperlipidemia type: unspecified Qualified Code(s): E78.5 - Hyperlipidemia, unspecified (9) Hypertension Qualifiers: Hypertension type: essential hypertension - Current Meds Current Meds: Current Medications Generic Name Dose Route Start Last Admin Trade Name Freq PRN Reason Stop Dose Admin Acetaminophen 650 mg 06/16/22 05:51 06/17/22 09:06 Acetaminophen 325 Mg Tablet PO 650 mg Q4HR PRN Administration Pain 1 to 4, or Fever Atorvastatin Calcium 40 mg 06/15/22 21:00 06/16/22 20:51 Atorvastatin 40 Mg Tablet PO 40 mg QPM ERIN Administration Carbidopa/Levodopa 1 tab 06/15/22 14:00 06/17/22 06:31 Carbidopa/Levodopa 25 Mg/250 Mg Tablet PO 1 tab TID ERIN Administration Hydromorphone HCl 0.5 mg 06/16/22 09:51 06/17/22 06:29 Hydromorphone 0.5 Mg/0.5 Ml Syringe IVP 0.5 mg Q4H PRN Administration PAIN Sodium Chloride 1,000 mls @ 75 mls/hr 06/13/22 18:30 06/17/22 10:40 Normal Saline 0.9% IV 0 mls/hr .[id number] ERIN Infusion Vancomycin HCl 1 gm/ 500 mls @ 250 mls/hr 06/15/22 16:00 06/16/22 18:05 Vancomycin HCl 500 mg/ Sodium IV Infused Chloride Q24H ERIN Infusion Piperacillin Sod/Tazobactam 100 mls @ 25 mls/hr 06/15/22 18:00 06/17/22 05:54 Sod 3.375 gm/ Sodium Chloride IV Infused Q8H ERIN Infusion Insulin Glargine 5 unit 06/14/22 09:00 06/16/22 20:51 Insulin Glargine 300 Unit/3 Ml Pen SUBQ 5 unit QPM ERIN Administration Insulin Human Lispro 1 - 9 unit 06/13/22 21:00 06/17/22 09:06 Insulin Lispro 300 Unit/3 Ml Pen SUBQ Not Given 0800,1200,1700,2100 [facility] Protocol Methimazole 10 mg 06/15/22 11:00 06/17/22 09:07 Methimazole 5 Mg Tablet PO 10 mg DAILYWM ERIN Administration Oxycodone HCl 5 mg 06/16/22 05:52 06/16/22 10:26 Oxycodone 5 Mg Tablet PO 5 mg Q4HR PRN Administration Pain 5 to 7 Phenazopyridine HCl 100 mg 06/16/22 15:00 06/17/22 06:31 Phenazopyridine 100 Mg Tablet PO 06/18/22 06:01 100 mg TID ERIN Administration Polyethylene Glycol 17 gm 06/14/22 09:00 06/17/22 09:07 Polyethylene Glycol 3350 17 Gm Packet PO 17 gm DAILY ERIN Administration Sodium Chloride 10 ml 06/13/22 17:06 06/16/22 11:54 Sodium Chloride Flush 0.9% 10 Ml Syringe IVP 10 ml PRN PRN Administration NEEDED PER PROVIDER ORDERS Sodium Chloride 10 ml 06/13/22 17:00 06/17/22 09:07 Sodium Chloride Flush 0.9% 10 Ml Syringe IVP Not Given 0100,0900,1700 [facility] - Lab Result Fish Bone Diagrams: 06/17/22 05:35 06/17/22 05:35 - Additional Planning My Orders: My Active Orders 06/16/22 15:00 Phenazopyridine [Pyridium] 100 mg PO TID 06/17/22 07:24 Transfuse RBCs Leukoreduced [RC] .ONCE 06/18/22 05:00 BMP - BASIC METABOLIC PANEL [CHEM] DAILYLAB CBC - COMP BLD CT W/AUTO DIFF [HEME] DAILYLAB Objective Vital Signs: Vital Signs - 24 hr 06/16/22 06/16/22 06/16/22 13:21 15:51 20:26 Temperature 36.2 C L 36.2 C L 36.3 C L Heart Rate [ 88 92 94 Brachial] Respiratory 16 17 21 Rate Blood Pressure [Left Brachial artery] Blood Pressure 129/58 L 106/68 121/64 [Right Brachial artery] O2 Saturation 97 95 92 06/16/22 06/17/22 06/17/22 23:45 05:40 07:33 Temperature 36.3 C L 36.3 C L 36.6 C Heart Rate [ 81 90 87 Brachial] Respiratory 20 20 20 Rate Blood Pressure 92/48 L 123/51 L 118/47 L [Left Brachial artery] Blood Pressure [Right Brachial artery] O2 Saturation 97 95 94 06/17/22 06/17/22 10:38 10:57 Temperature 36.6 C 36.3 C L Heart Rate [ 89 88 Brachial] Respiratory 20 20 Rate Blood Pressure 101/61 131/52 H [Left Brachial artery] Blood Pressure [Right Brachial artery] O2 Saturation 94 96 Oxygen O2 Source Room air I&O (Last 24 Hrs): Intake and Output Totals x24h 06/15/22 06/16/22 06/17/22 23:59 23:59 23:59 Intake Total 5495.00 74522.50 3525.00 Output Total 1675 6625 2150 Balance 3820.00 3662.50 1375.00 - Results Results: Laboratory Results WBC 14.9 x10^3/uL (4.8-10.8) H 06/17/22 05:35 RBC 2.74 10^6/uL (4.70-6.10) L 06/17/22 05:35 Hgb 6.8 g/dL (14.0-18.0) L* 06/17/22 05:35 Hct 22.4 % (42.0-52.0) L 06/17/22 05:35 MCV 81.8 fL (80.0-94.0) 06/17/22 05:35 MCH 24.8 pg (27.0-31.0) L 06/17/22 05:35 MCHC 30.4 g/dL (32.0-36.0) L 06/17/22 05:35 RDW 17.9 % (12.0-15.0) H 06/17/22 05:35 Plt Count 312 10^3/uL (130-450) 06/17/22 05:35 MPV 8.9 fL (7.4-11.4) 06/17/22 05:35 Neut # (Auto) 12.9 10^3/uL (1.5-6.6) H 06/17/22 05:35 Lymph # (Auto) 0.6 10^3/uL (1.5-3.5) L 06/17/22 05:35 [place] # (Auto) 1.0 10^3/uL (0.0-1.0) 06/17/22 05:35 Eos # (Auto) 0.2 10^3/uL (0.0-0.7) 06/17/22 05:35 Baso # (Auto) 0.0 10^3/uL (0.0-0.1) 06/17/22 05:35 Absolute Nucleated RBC 0.00 x10^3/uL 06/17/22 05:35 Nucleated RBC % 0.0 /100WBC 06/17/22 05:35 Sodium 141 mmol/L (135-145) 06/17/22 05:35 Potassium 3.4 mmol/L (3.5-5.0) L 06/17/22 05:35 Chloride 114 mmol/L (101-111) H 06/17/22 05:35 Carbon Dioxide 20 mmol/L (21-32) L 06/17/22 05:35 Anion Gap 7.0 (6-13) 06/17/22 05:35 BUN 15 mg/dL (6-20) 06/17/22 05:35 Creatinine 1.1 mg/dL (0.6-1.2) 06/17/22 05:35 Estimated GFR (MDRD) 64 (>89) L 06/17/22 05:35 Glucose 146 mg/dL (70-100) H 06/17/22 05:35 Calcium 8.1 mg/dL (8.5-10.3) L 06/17/22 05:35 Total Bilirubin 0.9 mg/dL (0.2-1.0) 06/13/22 13:12 AST 22 IU/L (10-42) 06/13/22 13:12 ALT 18 IU/L (10-60) 06/13/22 13:12 Alkaline Phosphatase 79 IU/L (42-121) 06/13/22 13:12 Total Creatine Kinase 84 IU/L (22-269) 06/13/22 14:42 Total Protein 7.0 g/dL (6.7-8.2) 06/13/22 13:12 Albumin 3.1 g/dL (3.2-5.5) L 06/13/22 13:12 Globulin 3.9 g/dL (2.1-4.2) 06/13/22 13:12 Albumin/Globulin Ratio 0.8 (1.0-2.2) L 06/13/22 13:12 Lipase 23 U/L (22-51) 06/13/22 13:12 Procalcitonin 0.10 ng/mL (<0.5) 06/15/22 05:38 Urine Color RED/BLOODY 06/13/22 15:08 Urine Clarity HAZY (CLEAR) 06/13/22 15:08 Urine pH 5.5 PH (5.0-7.5) 06/13/22 15:08 Ur Specific [place] 1.015 (1.002-1.030) 06/13/22 15:08 Urine Protein 100 mg/dL (NEGATIVE) H 06/13/22 15:08 Urine Glucose (UA) 100 mg/dL (NEGATIVE) H 06/13/22 15:08 Urine Ketones TRACE mg/dL (NEGATIVE) 06/13/22 15:08 Urine Occult Blood LARGE (NEGATIVE) H 06/13/22 15:08 Urine Nitrite NEGATIVE (NEGATIVE) 06/13/22 15:08 Urine Bilirubin NEGATIVE (NEGATIVE) 06/13/22 15:08 Urine Urobilinogen 0.2 (NORMAL) E.U./dL (NORMAL) 06/13/22 15:08 Ur Leukocyte Esterase TRACE (NEGATIVE) H 06/13/22 15:08 Urine RBC 11-25 /HPF (0-5) H 06/13/22 15:08 Urine WBC 6-10 /HPF (0-3) H 06/13/22 15:08 Ur Squamous Epith Cells RARE Squamous (<= Few) 06/13/22 15:08 Amorphous Sediment Rare /LPF 06/13/22 15:08 Urine Bacteria Many /HPF (None Seen) H 06/13/22 15:08 Ur Microscopic Review INDICATED 06/13/22 15:08 Urine Culture Comments INDICATED 06/13/22 15:08 Nasal Adenovirus (PCR) NOT DETECTED 06/13/22 16:03 Nasal B. parapertussis DNA (PCR) NOT DETECTED 06/13/22 16:03 Nasal Coronavir 229E PCR NOT DETECTED 06/13/22 16:03 Nasal Coronavir HKU1 PCR NOT DETECTED 06/13/22 16:03 Nasal Coronavir NL63 PCR NOT DETECTED 06/13/22 16:03 Nasal Coronavir OC43 PCR NOT DETECTED 06/13/22 16:03 Nasal Enterovir/Rhinovir PCR NOT DETECTED 06/13/22 16:03 Nasal Influenza B PCR NOT DETECTED 06/13/22 16:03 Nasal Influenza A PCR NOT DETECTED 06/13/22 16:03 Nasal Parainfluen 1 PCR NOT DETECTED 06/13/22 16:03 Nasal Parainfluen 2 PCR NOT DETECTED 06/13/22 16:03 Nasal Parainfluen 3 PCR NOT DETECTED 06/13/22 16:03 Nasal Parainfluen 4 PCR NOT DETECTED 06/13/22 16:03 Nasal RSV (PCR) NOT DETECTED 06/13/22 16:03 Nasal B.pertussis DNA PCR NOT DETECTED 06/13/22 16:03 Nasal C.pneumoniae (PCR) NOT DETECTED 06/13/22 16:03 Harris Human Metapneumo PCR NOT DETECTED 06/13/22 16:03 Nasal M.pneumoniae (PCR) NOT DETECTED 06/13/22 16:03 Nasal SARS-CoV-2 (PCR) NOT DETECTED 06/13/22 16:03 Blood Type A NEGATIVE 06/17/22 07:39 Blood Type Recheck A NEGATIVE 06/13/22 13:12 Antibody Screen NEGATIVE 06/17/22 07:39 Crossmatch IS Only See Detail 06/17/22 07:39
[2022-06-17] MEDS: oxyCODONE 5 MG TABLET PO PRN (21:14)
[2022-06-17] MEDS: INSULIN GLARGINE 300 UNIT/3 ML PEN SUBQ SCH (21:15)
[2022-06-17] MEDS: ATORVASTATIN 40 MG TABLET PO SCH (21:15)
[2022-06-17] MEDS ORDERED: OXYBUTYNIN 5MG TABLET PO SCH (22:09)
[2022-06-18 05:12] LABS: BASOPHILS # (AUTO) 0.1 10^3/uL (0.0-0.1); BASOPHILS % (AUTO) 0.4 %; EOSINOPHILS # (AUTO) 0.1 10^3/uL (0.0-0.7); EOSINOPHILS % (AUTO) 0.9 %; HCT - HEMATOCRIT 24.4 % (42.0-52.0); HGB - HEMOGLOBIN 7.6 g/dL (14.0-18.0); LYMPHOCYTES # (AUTO) 0.8 10^3/uL (1.5-3.5); LYMPHOCYTES % (AUTO) 5.8 %; MEAN CORPUSCULAR HEMOGLOBIN 25.6 pg (27.0-31.0); MEAN CORPUSCULAR HGB CONC 31.1 g/dL (32.0-36.0); MEAN CORPUSCULAR VOLUME 82.2 fL (80.0-94.0); MEAN PLATELET VOLUME 9.8 fL (7.4-11.4); MONOCYTES # (AUTO) 0.8 10^3/uL (0.0-1.0); NEUTROPHILS % (AUTO) 86.4 %; PLT - PLATELET COUNT 263 10^3/uL (130-450); RED BLOOD COUNT 2.97 10^6/uL (4.70-6.10); RED CELL DISTRIBUTION WIDTH 17.5 % (12.0-15.0); WHITE BLOOD COUNT 13.9 x10^3/uL (4.8-10.8)
[2022-06-18 05:19] LABS: CALCIUM 8.5 mg/dL (8.5-10.3); CREATININE 1.2 mg/dL (0.6-1.2); POTASSIUM 3.5 mmol/L (3.5-5.0)
[2022-06-18] MEDS: SODIUM CHLORIDE FLUSH 0.9% 10 ML SYRINGE IVP SCH ×3 (06:44→17:14)
[2022-06-18] MEDS: PHENAZOPYRIDINE 100 MG TABLET PO SCH (06:44)
[2022-06-18] MEDS: oxyCODONE 5 MG TABLET PO PRN (06:44)
[2022-06-18] MEDS: CARBIDOPA/LEVODOPA 25 MG/250 MG TABLET PO SCH ×3 (06:45→21:25)
[2022-06-18] MEDS: INSULIN LISPRO 300 UNIT/3 ML PEN SUBQ SCH ×4 (08:54→21:25)
[2022-06-18] MEDS: methIMAzole 5 MG TABLET PO SCH (08:55)
[2022-06-18] MEDS: polyethylene glycoL 3350 17 GM PACKET PO SCH (08:55)
[2022-06-18] MEDS: ACETAMINOPHEN 325 MG TABLET PO PRN (08:57)
[2022-06-18] MEDS: SOLIFENACIN SUCCINATE 5 MG TABLET PO SCH (10:44)
--- NOTE | 2022-06-18 10:52 | PROVIDER PROGRESS NOTE ---
Subjective - Prog Note Date Prog Note Date: 06/18/22 Prog Note Time: 10:50 - Subjective Pt reports feeling: No change Subjective: We have had no change in his status. He has a Loving in place and has enough hematuria that the clots form and block his Loving. He is needing almost constant irrigation to keep his Loving open. We have sent a referral for hospice to start when he is discharged. Right now the current plan is to be discharged on June 20. Hospital equipment will be delivered tomorrow. Son Mayur has a list of caregivers and his was to be calling to hire caregivers for his mom and dad. Current Medications - Current Medications Current Medications: Active Medications Acetaminophen (Acetaminophen 325 Mg Tablet) 650 mg PO Q4HR PRN PRN Reason: Pain 1 to 4, or Fever Last Admin: 06/18/22 08:57 Dose: 650 mg Atorvastatin Calcium (Atorvastatin 40 Mg Tablet) 40 mg PO QPM [facility] Last Admin: 06/17/22 21:15 Dose: 40 mg Carbidopa/Levodopa (Carbidopa/Levodopa 25 Mg/250 Mg Tablet) 1 tab PO TID [facility] Last Admin: 06/18/22 06:45 Dose: 1 tab Hydromorphone HCl (Hydromorphone 0.5 Mg/0.5 Ml Syringe) 0.5 mg IVP Q4H PRN PRN Reason: PAIN Last Admin: 06/17/22 06:29 Dose: 0.5 mg Insulin Glargine (Insulin Glargine 300 Unit/3 Ml Pen) 5 unit SUBQ QPM [facility] Last Admin: 06/17/22 21:15 Dose: 5 unit Insulin Human Lispro (Insulin Lispro 300 Unit/3 Ml Pen) 1 - 9 unit SUBQ 0800,1200,1700,2100 [facility]; Protocol Last Admin: 06/18/22 08:54 Dose: Not Given Methimazole (Methimazole 5 Mg Tablet) 10 mg PO DAILYWM [facility] Last Admin: 06/18/22 08:55 Dose: 10 mg Ondansetron HCl (Ondansetron 4 Mg/2 Ml Vial) 4 mg IVP Q6HR PRN PRN Reason: Nausea / Vomiting Oxycodone HCl (Oxycodone 5 Mg Tablet) 5 mg PO Q4HR PRN PRN Reason: Pain 5 to 7 Last Admin: 06/18/22 06:44 Dose: 5 mg Polyethylene Glycol (Polyethylene Glycol 3350 17 Gm Packet) 17 gm PO DAILY [facility] Last Admin: 06/18/22 08:55 Dose: Not Given Sodium Chloride (Sodium Chloride Flush 0.9% 10 Ml Syringe) 10 ml IVP PRN PRN PRN Reason: NEEDED PER PROVIDER ORDERS Last Admin: 06/16/22 11:54 Dose: 10 ml Sodium Chloride (Sodium Chloride Flush 0.9% 10 Ml Syringe) 10 ml IVP 0100,0900,1700 [facility] Last Admin: 06/18/22 08:55 Dose: 10 ml Solifenacin (Solifenacin Succinate 5 Mg Tablet) 5 mg PO DAILY [facility] Last Admin: 06/18/22 10:44 Dose: 5 mg Carbidopa/Levodopa 25/250 [Sinemet 25 mg/250 mg] 1 tab PO TID 06/13/22 Torsemide 10 mg PO DAILY PRN 06/13/22 metFORMIN [Glucophage] 1,000 mg PO BIDWM 06/13/22 methIMAzole [Tapazole] 10 mg PO DAILY 06/13/22 Potassium Chloride 10 meq PO DAILY 06/14/22 Objective - Vital Signs/Intake & Output Reviewed Vital Signs: Yes Vital Signs: Vital Signs x48h Temp Pulse Resp BP Pulse Ox 06/18/22 07:36 36.4 C L 85 20 115/60 93 06/18/22 06:21 36.6 C 95 16 141/61 H 97 Intake & Output: Intake & Output 06/15/22 06/16/22 06/17/22 06/18/22 23:59 23:59 23:59 23:59 Intake Total 5495.00 89390.50 5515.00 720 Output Total 1675 6625 3925 50 Balance 3820.00 3662.50 1590.00 670 - Objective General Appearance: positive: No acute distress, Alert (He was asleep when I walked in the room, woke him up and he was alert, oriented, speech normal) Eyes Bilateral: positive: PERRL, EOMI ENT: positive: No signs of dehydration Neck: positive: No JVD. negative: Stiff neck Respiratory: positive: No respiratory distress. negative: Wheezes, Rales, Rhonchi Cardiovascular: positive: Regular rate & rhythm. negative: Gallop/S4, Friction rub Abdomen: positive: Non-tender, No organomegaly, Nml bowel sounds, No distention, Other (Loving Was in place. Now still having urinary retention and occasional clots and blood in urine Transfused 1 unit from 6.8 g yesterday and is 7.6 this morning) Skin: positive: Warm, Dry Extremities: positive: Full ROM, No pedal edema Neurologic/Psychiatric: positive: Oriented x3 (But easily forgetful. Needs to be prompted.), CN's nml (2-12). negative: Motor nml (Generalized weakness but he is able to sit up, walk with a walker, stand to use urinal) - Lab Results Fish Bones: 06/18/22 04:57 06/18/22 04:57 Other Labs: Lab Results x24hrs 06/18/22 06/18/22 06/18/22 Range/Units 07:30 04:57 04:57 WBC 13.9 H (4.8-10.8) x10^3/uL RBC 2.97 L (4.70-6.10) 10^6/uL Hgb 7.6 L (14.0-18.0) g/dL Hct 24.4 L (42.0-52.0) % MCV 82.2 (80.0-94.0) fL MCH 25.6 L (27.0-31.0) pg MCHC 31.1 L (32.0-36.0) g/dL RDW 17.5 H (12.0-15.0) % Plt Count 263 (130-450) 10^3/uL MPV 9.8 (7.4-11.4) fL Neut # (Auto) 12.0 H (1.5-6.6) 10^3/uL Lymph # (Auto) 0.8 L (1.5-3.5) 10^3/uL [place] # (Auto) 0.8 (0.0-1.0) 10^3/uL Eos # (Auto) 0.1 (0.0-0.7) 10^3/uL Baso # (Auto) 0.1 (0.0-0.1) 10^3/uL Absolute Nucleated RBC 0.00 x10^3/uL Nucleated RBC % 0.0 /100WBC Sodium 142 (135-145) mmol/L Potassium 3.5 (3.5-5.0) mmol/L Chloride 114 H (101-111) mmol/L Carbon Dioxide 19 L (21-32) mmol/L Anion Gap 9.0 (6-13) BUN 14 (6-20) mg/dL Creatinine 1.2 (0.6-1.2) mg/dL Estimated GFR (MDRD) 58 L (>89) Glucose 76 (70-100) mg/dL POC Whole Bld Glucose 87 (70 - 100) mg/dL Calcium 8.5 (8.5-10.3) mg/dL Crossmatch IS Only 06/17/22 06/17/22 06/17/22 Range/Units 20:45 16:43 11:27 WBC (4.8-10.8) x10^3/uL RBC (4.70-6.10) 10^6/uL Hgb (14.0-18.0) g/dL Hct (42.0-52.0) % MCV (80.0-94.0) fL MCH (27.0-31.0) pg MCHC (32.0-36.0) g/dL RDW (12.0-15.0) % Plt Count (130-450) 10^3/uL MPV (7.4-11.4) fL Neut # (Auto) (1.5-6.6) 10^3/uL Lymph # (Auto) (1.5-3.5) 10^3/uL [place] # (Auto) (0.0-1.0) 10^3/uL Eos # (Auto) (0.0-0.7) 10^3/uL Baso # (Auto) (0.0-0.1) 10^3/uL Absolute Nucleated RBC x10^3/uL Nucleated RBC % /100WBC Sodium (135-145) mmol/L Potassium (3.5-5.0) mmol/L Chloride (101-111) mmol/L Carbon Dioxide (21-32) mmol/L Anion Gap (6-13) BUN (6-20) mg/dL Creatinine (0.6-1.2) mg/dL Estimated GFR (MDRD) (>89) Glucose (70-100) mg/dL POC Whole Bld Glucose 183 H 189 H 172 H (70 - 100) mg/dL Calcium (8.5-10.3) mg/dL Crossmatch IS Only 06/17/22 06/17/22 06/16/22 Range/Units 07:39 07:32 20:20 WBC (4.8-10.8) x10^3/uL RBC (4.70-6.10) 10^6/uL Hgb (14.0-18.0) g/dL Hct (42.0-52.0) % MCV (80.0-94.0) fL MCH (27.0-31.0) pg MCHC (32.0-36.0) g/dL RDW (12.0-15.0) % Plt Count (130-450) 10^3/uL MPV (7.4-11.4) fL Neut # (Auto) (1.5-6.6) 10^3/uL Lymph # (Auto) (1.5-3.5) 10^3/uL [place] # (Auto) (0.0-1.0) 10^3/uL Eos # (Auto) (0.0-0.7) 10^3/uL Baso # (Auto) (0.0-0.1) 10^3/uL Absolute Nucleated RBC x10^3/uL Nucleated RBC % /100WBC Sodium (135-145) mmol/L Potassium (3.5-5.0) mmol/L Chloride (101-111) mmol/L Carbon Dioxide (21-32) mmol/L Anion Gap (6-13) BUN (6-20) mg/dL Creatinine (0.6-1.2) mg/dL Estimated GFR (MDRD) (>89) Glucose (70-100) mg/dL POC Whole Bld Glucose 122 H 138 H (70 - 100) mg/dL Calcium (8.5-10.3) mg/dL Crossmatch IS Only See Detail 06/16/22 06/16/22 06/16/22 Range/Units 16:27 12:40 11:13 WBC (4.8-10.8) x10^3/uL RBC (4.70-6.10) 10^6/uL Hgb (14.0-18.0) g/dL Hct (42.0-52.0) % MCV (80.0-94.0) fL MCH (27.0-31.0) pg MCHC (32.0-36.0) g/dL RDW (12.0-15.0) % Plt Count (130-450) 10^3/uL MPV (7.4-11.4) fL Neut # (Auto) (1.5-6.6) 10^3/uL Lymph # (Auto) (1.5-3.5) 10^3/uL [place] # (Auto) (0.0-1.0) 10^3/uL Eos # (Auto) (0.0-0.7) 10^3/uL Baso # (Auto) (0.0-0.1) 10^3/uL Absolute Nucleated RBC x10^3/uL Nucleated RBC % /100WBC Sodium (135-145) mmol/L Potassium (3.5-5.0) mmol/L Chloride (101-111) mmol/L Carbon Dioxide (21-32) mmol/L Anion Gap (6-13) BUN (6-20) mg/dL Creatinine (0.6-1.2) mg/dL Estimated GFR (MDRD) (>89) Glucose (70-100) mg/dL POC Whole Bld Glucose 121 H 188 H 178 H (70 - 100) mg/dL Calcium (8.5-10.3) mg/dL Crossmatch IS Only 06/16/22 06/15/22 06/15/22 Range/Units 07:29 20:29 16:45 WBC (4.8-10.8) x10^3/uL RBC (4.70-6.10) 10^6/uL Hgb (14.0-18.0) g/dL Hct (42.0-52.0) % MCV (80.0-94.0) fL MCH (27.0-31.0) pg MCHC (32.0-36.0) g/dL RDW (12.0-15.0) % Plt Count (130-450) 10^3/uL MPV (7.4-11.4) fL Neut # (Auto) (1.5-6.6) 10^3/uL Lymph # (Auto) (1.5-3.5) 10^3/uL [place] # (Auto) (0.0-1.0) 10^3/uL Eos # (Auto) (0.0-0.7) 10^3/uL Baso # (Auto) (0.0-0.1) 10^3/uL Absolute Nucleated RBC x10^3/uL Nucleated RBC % /100WBC Sodium (135-145) mmol/L Potassium (3.5-5.0) mmol/L Chloride (101-111) mmol/L Carbon Dioxide (21-32) mmol/L Anion Gap (6-13) BUN (6-20) mg/dL Creatinine (0.6-1.2) mg/dL Estimated GFR (MDRD) (>89) Glucose (70-100) mg/dL POC Whole Bld Glucose 199 H 214 H 181 H (70 - 100) mg/dL Calcium (8.5-10.3) mg/dL Crossmatch IS Only 06/15/22 06/15/22 06/14/22 Range/Units 11:49 07:52 20:07 WBC (4.8-10.8) x10^3/uL RBC (4.70-6.10) 10^6/uL Hgb (14.0-18.0) g/dL Hct (42.0-52.0) % MCV (80.0-94.0) fL MCH (27.0-31.0) pg MCHC (32.0-36.0) g/dL RDW (12.0-15.0) % Plt Count (130-450) 10^3/uL MPV (7.4-11.4) fL Neut # (Auto) (1.5-6.6) 10^3/uL Lymph # (Auto) (1.5-3.5) 10^3/uL [place] # (Auto) (0.0-1.0) 10^3/uL Eos # (Auto) (0.0-0.7) 10^3/uL Baso # (Auto) (0.0-0.1) 10^3/uL Absolute Nucleated RBC x10^3/uL Nucleated RBC % /100WBC Sodium (135-145) mmol/L Potassium (3.5-5.0) mmol/L Chloride (101-111) mmol/L Carbon Dioxide (21-32) mmol/L Anion Gap (6-13) BUN (6-20) mg/dL Creatinine (0.6-1.2) mg/dL Estimated GFR (MDRD) (>89) Glucose (70-100) mg/dL POC Whole Bld Glucose 240 H 130 H 223 H (70 - 100) mg/dL Calcium (8.5-10.3) mg/dL Crossmatch IS Only 06/14/22 06/14/22 06/14/22 Range/Units 16:26 11:24 07:43 WBC (4.8-10.8) x10^3/uL RBC (4.70-6.10) 10^6/uL Hgb (14.0-18.0) g/dL Hct (42.0-52.0) % MCV (80.0-94.0) fL MCH (27.0-31.0) pg MCHC (32.0-36.0) g/dL RDW (12.0-15.0) % Plt Count (130-450) 10^3/uL MPV (7.4-11.4) fL Neut # (Auto) (1.5-6.6) 10^3/uL Lymph # (Auto) (1.5-3.5) 10^3/uL [place] # (Auto) (0.0-1.0) 10^3/uL Eos # (Auto) (0.0-0.7) 10^3/uL Baso # (Auto) (0.0-0.1) 10^3/uL Absolute Nucleated RBC x10^3/uL Nucleated RBC % /100WBC Sodium (135-145) mmol/L Potassium (3.5-5.0) mmol/L Chloride (101-111) mmol/L Carbon Dioxide (21-32) mmol/L Anion Gap (6-13) BUN (6-20) mg/dL Creatinine (0.6-1.2) mg/dL Estimated GFR (MDRD) (>89) Glucose (70-100) mg/dL POC Whole Bld Glucose 292 H 167 H 266 H (70 - 100) mg/dL Calcium (8.5-10.3) mg/dL Crossmatch IS Only 06/13/22 Range/Units 21:20 WBC (4.8-10.8) x10^3/uL RBC (4.70-6.10) 10^6/uL Hgb (14.0-18.0) g/dL Hct (42.0-52.0) % MCV (80.0-94.0) fL MCH (27.0-31.0) pg MCHC (32.0-36.0) g/dL RDW (12.0-15.0) % Plt Count (130-450) 10^3/uL MPV (7.4-11.4) fL Neut # (Auto) (1.5-6.6) 10^3/uL Lymph # (Auto) (1.5-3.5) 10^3/uL [place] # (Auto) (0.0-1.0) 10^3/uL Eos # (Auto) (0.0-0.7) 10^3/uL Baso # (Auto) (0.0-0.1) 10^3/uL Absolute Nucleated RBC x10^3/uL Nucleated RBC % /100WBC Sodium (135-145) mmol/L Potassium (3.5-5.0) mmol/L Chloride (101-111) mmol/L Carbon Dioxide (21-32) mmol/L Anion Gap (6-13) BUN (6-20) mg/dL Creatinine (0.6-1.2) mg/dL Estimated GFR (MDRD) (>89) Glucose (70-100) mg/dL POC Whole Bld Glucose 253 H (70 - 100) mg/dL Calcium (8.5-10.3) mg/dL Crossmatch IS Only ABX Reporting Has patient been on IV antibiotics over the past 48 hours?: No Assessment/Plan - Problem List (1) Bladder cancer Impression: CT of abdomen and pelvis has an 80 mm left-sided urinary bladder mass with bilateral hydronephrosis. Initial plan was to get him through this hosp[facility] medical centeration so that he could follow-up with his urologist. The urologist is going to want another CT abdomen and pelvis. However, the patient is decided to go to hospice. Hospitalist note from 06/17 states: Dr Bin Sampson with urology later called back. He faxed the most recent documentation/visit the patient had at [facility] urology. It was a palliative care note. The patient's brother Earnest Quinonez was at that visit as well. The patient expressed that he was not interested at all in getting surgery for the bladder cancer. During that visit some signs that the patient could expect to see which would indicate that the cancer was worsening were discussed. This included hem aturia. The topic of hospice was brought up however it was felt the patient was not ready and/eligible for hospice at the time. I discussed this visit with the patient's brother Earnest today 06/17/2022 and asked if they would be interested in me consulting hospice care. He is the brother agreed so a hospice referral was made. The continuous bladder irrigation and IV hydration were discontinued. If patient is able to urinate on his own, we can consider discharge. He is hit or miss with regards to being able to urinate on his own. We are awaiting discharge to hospice. We will see if he can urinate on his own today and if not, Loving will need to be placed by tomorrow at discharge. Son Mayur is aware and is the DPOA. Social work and hospice are working with the son. Current plan is discharged home tomorrow once equipment is delivered. Hospice will open him up on June 20. Son needs to get caregivers in place to help keep them at home safely. It is not only the patient Mr. Quinonez, but Mr. Quinonez"s who is in a wheelchair and needs care. (2) Severe anemia Assessment/Plan: Secondary to hematuria related to bladder cancer. Hemoglobin June 17 was 6.8. Patient transfused 1 unit of packed red blood cells This morning he is 7.6. (3) UTI (urinary tract infection) Qualifiers: Urinary tract infection type: acute cystitis Hematuria presence: with hematuria Qualified Code(s): N30.01 - Acute cystitis with hematuria Assessment/Plan: Blood cultures drawn on admit are no growth to date. White blood cell count improved from 14.9 Antibiotics broadened to include vancomycin and Zosyn. Once he was transition to hospice plan, IV antibiotics were discontinued yesterday afternoon. Rocephin was discontinued Prior to that. Continue IV hydration with normal saline. (5) Abrasion of right elbow Qualifiers: Encounter type: initial encounter Qualified Code(s): S50.311A - Abrasion of right elbow, initial encounter Assessment/Plan: Likely secondary to fall. Healing well. (6) CHF due to valvular disease Assessment/Plan: Continue to hold spironolactone and valsartan while actively hydrating the patient. (7) Generalized weakness Assessment/Plan: This, with his hemorrhagic bladder cancer causing anemia, were the reasons he was admitted. Patient seen by PT and OT. Recommendation for nursing home facility for re hab. Patient's son was at bedside,Family initially planned for him to go to rehab once medically cleared to do so. After rehab they would like him to come back home weight more home health aide. However, they have changed the disposition to hospice care. Patient will be discharged to home. (8) Hyperlipidemia Qualifiers: Hyperlipidemia type: unspecified Qualified Code(s): E78.5 - Hyperlipidemia, unspecified Assessment/Plan: On atorvastatin 40 mg p.o. every afternoon. (9) Hypertension Qualifiers: Hypertension type: essential hypertension Assessment/Plan: Spironolactone and valsartan held while actively hydrating patient. 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 It is held for [address] of the abdomen pelvis with contrast was done Lantus 5 unit subcu nightly Accu-Cheks before every meal and at bedtime, sliding scale insulin. Yesterday his glucose was 172, 189, 183 and this morning he is 87. Plan today is to resume the metformin, stop the Lantus. Once he is at home, would use judgment as to whether he really needs metformin or not (11) Parkinson's disease Assessment/Plan: On carbidopa/levodopa (12) Hyperthyroidism Assessment/Plan: On methimazole 10 mg p.o. daily
[2022-06-18] MEDS: metFORMIN 500 MG TABLET PO SCH (17:13)
[2022-06-18] MEDS: ATORVASTATIN 40 MG TABLET PO SCH (21:25)
[2022-06-19] MEDS: SODIUM CHLORIDE FLUSH 0.9% 10 ML SYRINGE IVP SCH ×3 (01:31→17:19)
[2022-06-19] MEDS: oxyCODONE 5 MG TABLET PO PRN (01:44)
[2022-06-19] MEDS ORDERED: OXYBUTYNIN 5MG TABLET PO SCH ×2 (02:00→08:03)
[2022-06-19] MEDS: CARBIDOPA/LEVODOPA 25 MG/250 MG TABLET PO SCH ×3 (05:28→21:36)
[2022-06-19] MEDS: INSULIN LISPRO 300 UNIT/3 ML PEN SUBQ SCH ×4 (08:57→21:36)
[2022-06-19] MEDS: methIMAzole 5 MG TABLET PO SCH (08:57)
[2022-06-19] MEDS: polyethylene glycoL 3350 17 GM PACKET PO SCH (08:58)
[2022-06-19] MEDS: TAMSULOSIN 0.4 MG CAPSULE PO SCH (08:59)
[2022-06-19] MEDS: SOLIFENACIN SUCCINATE 5 MG TABLET PO SCH (08:59)
[2022-06-19] MEDS: metFORMIN 500 MG TABLET PO SCH ×2 (09:10→17:19)
--- NOTE | 2022-06-19 15:28 | PROVIDER PROGRESS NOTE ---
Subjective - Prog Note Date Prog Note Date: 06/19/22 Prog Note Time: 15:26 - Subjective Subjective: No new events. In my subjective from yesterday I stated the patient still had a Loving but he does not. So far he has been able to urinate. There is still occasional hematuria. He is very confused. Insist on standing up to pee. Had a large bowel movement this morning. While he is picking at his sheets, picking at his hospital gown, he is able to stop doing that when I speak to him. Asked him to look at my face and speak to me. He says he just does not know why he is here and would like to go home. He keeps on being fixated on the urge to urinate but denies any abdominal pain, chest pain.No new events. In my subjective from yesterday I stated the patient still had a Loving but he does not. So far he has been able to urinate. There is still occasional hematuria. He is very confused. Insist on standing up to pee. Had a large bowel movement this morning. Current Medications - Current Medications Current Medications: Active Medications Acetaminophen (Acetaminophen 325 Mg Tablet) 650 mg PO Q4HR PRN PRN Reason: Pain 1 to 4, or Fever Last Admin: 06/18/22 08:57 Dose: 650 mg Atorvastatin Calcium (Atorvastatin 40 Mg Tablet) 40 mg PO QPM [facility] Last Admin: 06/18/22 21:25 Dose: 40 mg Carbidopa/Levodopa (Carbidopa/Levodopa 25 Mg/250 Mg Tablet) 1 tab PO TID [facility] Last Admin: 06/19/22 14:07 Dose: 1 tab Hydromorphone HCl (Hydromorphone 0.5 Mg/0.5 Ml Syringe) 0.5 mg IVP Q4H PRN PRN Reason: PAIN Last Admin: 06/17/22 06:29 Dose: 0.5 mg Insulin Human Lispro (Insulin Lispro 300 Unit/3 Ml Pen) 1 - 9 unit SUBQ 0800,1200,1700,2100 [facility]; Protocol Last Admin: 06/19/22 12:34 Dose: 1 unit Metformin HCl (Metformin 500 Mg Tablet) 500 mg PO BIDWM [facility] Last Admin: 06/19/22 09:10 Dose: 500 mg Methimazole (Methimazole 5 Mg Tablet) 10 mg PO DAILYWM [facility] Last Admin: 06/19/22 08:57 Dose: 10 mg Ondansetron HCl (Ondansetron 4 Mg/2 Ml Vial) 4 mg IVP Q6HR PRN PRN Reason: Nausea / Vomiting Oxycodone HCl (Oxycodone 5 Mg Tablet) 5 mg PO Q4HR PRN PRN Reason: Pain 5 to 7 Last Admin: 06/19/22 01:44 Dose: 5 mg Polyethylene Glycol (Polyethylene Glycol 3350 17 Gm Packet) 17 gm PO DAILY [facility] Last Admin: 06/19/22 08:58 Dose: Not Given Sodium Chloride (Sodium Chloride Flush 0.9% 10 Ml Syringe) 10 ml IVP PRN PRN PRN Reason: NEEDED PER PROVIDER ORDERS Last Admin: 06/16/22 11:54 Dose: 10 ml Sodium Chloride (Sodium Chloride Flush 0.9% 10 Ml Syringe) 10 ml IVP 0100,0900,1700 [facility] Last Admin: 06/19/22 08:59 Dose: 10 ml Solifenacin (Solifenacin Succinate 5 Mg Tablet) 5 mg PO DAILY [facility] Last Admin: 06/19/22 08:59 Dose: 5 mg Tamsulosin HCl (Tamsulosin 0.4 Mg Capsule) 0.4 mg PO DAILY [facility] Last Admin: 06/19/22 08:59 Dose: 0.4 mg Carbidopa/Levodopa 25/250 [Sinemet 25 mg/250 mg] 1 tab PO TID 06/13/22 Torsemide 10 mg PO DAILY PRN 06/13/22 metFORMIN [Glucophage] 1,000 mg PO BIDWM 06/13/22 methIMAzole [Tapazole] 10 mg PO DAILY 06/13/22 Potassium Chloride 10 meq PO DAILY 06/14/22 Objective - Vital Signs/Intake & Output Reviewed Vital Signs: Yes Vital Signs: Vital Signs x48h Temp Pulse Resp BP Pulse Ox 06/19/22 11:08 36.5 C 83 20 117/50 L 95 Intake & Output: Intake & Output 06/16/22 06/17/22 06/18/22 06/19/22 23:59 23:59 23:59 23:59 Intake Total 24226.50 5515.00 1310 1230 Output Total 6625 3925 50 Balance 3662.50 1590.00 1260 1230 - Objective General Appearance: positive: No acute distress, Other (Confused. Does not know why he is here. Does not know where he is sometimes.Elderly gentleman, thin.) Eyes Bilateral: positive: PERRL, EOMI ENT: positive: No signs of dehydration Neck: positive: No JVD. negative: Stiff neck Respiratory: positive: No respiratory distress, Rhonchi (Occasionally. Not with every breath. On both sides.). negative: Wheezes, Rales Cardiovascular: positive: Regular rate & rhythm. negative: Gallop/S4 Abdomen: positive: Non-tender, No organomegaly, Nml bowel sounds, No distention Skin: positive: Warm, Dry Extremities: positive: Full ROM, No pedal edema (Large ankles but not edematous) Neurologic/Psychiatric: positive: CN's nml (2-12), Disoriented to person, Disoriented to place, Disoriented to time. negative: Motor nml (Weak, off balance. Able to stand for using the urinal) - Lab Results Fish Bones: 06/18/22 04:57 06/18/22 04:57 Other Labs: Lab Results x24hrs 06/19/22 06/19/22 06/18/22 Range/Units 11:07 07:20 21:21 POC Whole Bld Glucose 152 H 172 H 220 H (70 - 100) mg/dL 06/18/22 Range/Units 16:44 POC Whole Bld Glucose 156 H (70 - 100) mg/dL Assessment/Plan - Problem List (1) Bladder cancer Impression: (1) Bladder cancer Impression: CT of abdomen and pelvis has an 80 mm left-sided urinary bladder mass with bilateral hydronephrosis. Initial plan was to get him through this hospitalization so that he could follow-up with his urologist. The urologist is going to want another CT abdomen and pelvis. However, the patient's family has decided to go to hospice. Hospitalist note from 06/17 states: Dr Bin Sampson with urology later called back. He faxed the most recent documentation/visit the patient had at [facility] urology. It was a palliative care note. The patient's brother Earnest Quinonez was at that visit as well. The patient expressed that he was not interested at all in getting surgery for the bladder cancer. During that visit some signs that the patient could expect to see which would indicate that the cancer was worsening were discussed. This included hematuria. The topic of hospice was brought up however it was felt the patient was not ready and/eligible for hospice at the time. I discussed this visit with the patient's brother Gene today 06/17/2022 and asked if they would be interested in me consulting hospice care. He is the brother agreed so a hospice referral was made. The continuous bladder irrigation and IV hydration were discontinued. If patient is able to urinate on his own, we can consider discharge. He is hit or miss with regards to being able to urinate on his own. We will discharge to hospice tomorrow (and not today) so that he can be opened immediately and not bounce back to us. He is able to urinate on his own. Does not need a Loving at this time. Equipment being delivered today. Hospice will open him up at the afternoon tomorrow. We are planning discharge late morning or early afternoon tomorrow. He will go home with BLS due to his dementia and impulsivity. (2) Severe anemia Assessment/Plan: Secondary to hematuria related to bladder cancer. Hemoglobin June 17 was 6.8. Patient transfused 1 unit of packed red blood cells The morning of 06/18 he was 7.6. no more checks are planned. (3) UTI (urinary tract infection) Qualifiers: Urinary tract infection type: acute cystitis Hematuria presence: with hematuria Qualified Code(s): N30.01 - Acute cystitis with hematuria Assessment/Plan: Blood cultures drawn on admit are no growth to date. White blood cell count improved from 14.9 Antibiotics broadened to include vancomycin and Zosyn. Once he was transition to hospice plan, IV antibiotics were discontinued 06/17 afternoon. Rocephin was discontinued Prior to that. NS drip has been stopped (5) Abrasion of right elbow Qualifiers: Encounter type: initial encounter Qualified Code(s): S50.311A - Abrasion of right elbow, initial encounter Assessment/Plan: Likely secondary to fall. Healing well. (6) CHF due to valvular disease Assessment/Plan: Continue to hold spironolactone and valsartan since his BP is stable and no s/s of chf. (7) Generalized weakness Assessment/Plan: This, with his hemorrhagic bladder cancer causing anemia, were the reasons he wa s admitted. Patient seen by PT and OT. Recommendation for long-term facility for rehab. Patient's son was at bedside,Family initially planned for him to go to rehab once medically cleared to do so. After rehab they wanted him to come back home with home health aide. However, they have changed the disposition to hospice care. Patient will be discharged to home. (8) Hyperlipidemia Qualifiers: Hyperlipidemia type: unspecified Qualified Code(s): E78.5 - Hyperlipidemia, unspecified Assessment/Plan: On atorvastatin 40 mg p.o. every afternoon. (9) Hypertension Qualifiers: Hypertension type: essential hypertension Assessment/Plan: Spironolactone and valsartan were held while actively hydrating patient. Not being resumed at this time. 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 It is held for [address] of the abdomen pelvis with contrast was done Lantus 5 unit subcu nightly Accu-Cheks before every meal and at bedtime, sliding scale insulin. 06/17 his glucose was 172, 189, 183 06/18 he was 87,, 139, 156, 220. Today he is 172 and 152. 06/18 I resumed the metformin, stopped the Lantus. Once he is at home, would use judgment as to whether he really needs metformin or not. This indicates that he is going up off of the Lantus. (11) Parkinson's disease Assessment/Plan: On carbidopa/levodopa (12) Hyperthyroidism Assessment/Plan: On methimazole 10 mg p.o. daily
[2022-06-19] MEDS: ATORVASTATIN 40 MG TABLET PO SCH (21:36)
[2022-06-20] MEDS: SODIUM CHLORIDE FLUSH 0.9% 10 ML SYRINGE IVP SCH ×2 (00:04→09:11)
[2022-06-20] MEDS: CARBIDOPA/LEVODOPA 25 MG/250 MG TABLET PO SCH ×2 (05:36→14:07)
--- NOTE | 2022-06-20 08:39 | Discharge Plan ---
Discharge Plan Problem Reviewed?: Yes Disposition: 50 Hospice/Home DC/Xfer Condition: Poor Diet: Low Sodium Activity Restrictions: Activity as Tolerated Shower Restrictions: No Driving Restrictions: Yes (no driving) Health Concerns: You were brought to the emergency room after being found down at home. He had been on the floor for a couple of days after what we think was a fainting episode. You had no recollection of what happened and what brought you to the floor. Although your lives with you, she has dementia and she was unaware that you were on the floor. Your brother came for a visit and found her laying on the floor and called EMS. You have a history of bladder cancer and have opted to decline treatment. That has resulted in chronic bloody urine. You have been slowly losing blood. A normal amount of blood in a man is about 12 to 14 g of hemoglobin. You were 6.3 g of hemoglobin. We think that you are severely anemic, and deconditioned and that is why you passed out. Passing out and staying on the floor for that long then caused muscle breakdown and too much protein in your bloodstream then in turn causing some mild kidney failure. T reatment while you are here consisted of IV fluids to hydrate you. And treat a possible urinary tract infection. Family has met and is advocating for you. Due to your wishes to not get treatment for bladder cancer and your significantly weakened condition and, they have opted to transition you to hospice. Plan of Treatment: At this time he will be discharged to hospice. Focus will be on anything that causes you discomfort. If you have fever, pain, headache, shortness of breath, nausea, vomiting, or diarrhea there will be medication provided to help you with any of the symptoms. Your new doctor will be the medical file clerk, Dr. Butt. Care Goals: To stay at home for as long as possible and be comfortable there. Assessment: Patient is developed worsening dementia while in the hospital. He is not always aware of what is going on. His family has been in contact with social work to make these arrangements. Follow-Up Care: Hospice No Smoking: If you smoke, Please STOP! Call for help. Follow-up with: SANGITA HOWARD PA-C [Primary Care Provider] -
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
[2022-06-20] MEDS: INSULIN LISPRO 300 UNIT/3 ML PEN SUBQ SCH ×2 (09:11→11:58)
[2022-06-20] MEDS: SOLIFENACIN SUCCINATE 5 MG TABLET PO SCH (09:11)
[2022-06-20] MEDS: TAMSULOSIN 0.4 MG CAPSULE PO SCH (09:11)
[2022-06-20] MEDS: methIMAzole 5 MG TABLET PO SCH (09:11)
[2022-06-20] MEDS: metFORMIN 500 MG TABLET PO SCH (09:11)
[2022-06-20] MEDS: polyethylene glycoL 3350 17 GM PACKET PO SCH (09:11)
[2022-06-20 12:45] VITALS: BP 123/56
== END 2022-06-20 13:50 | disposition hospice, home (50) | DRG 812 ==
LOC: EDUNIT# → ED 12:58 → MS2 16:24 → ED 17:00
PROVIDERS: ADMIT Internal Medicine; ATTEND Specialist
PROC: 30233N1 Transfusion of Nonautologous Red Blood Cells into Peripheral Vein, Percutaneous Approach (ICD-10-PCS; principal; 2022-06-13)
DX: D64.9 Anemia, unspecified (principal); R55 Syncope and collapse; D50.0 Iron deficiency anemia secondary to blood loss (chronic); N30.01 Acute cystitis with hematuria; I50.22 Chronic systolic (congestive) heart failure; I50.9 Heart failure, unspecified; I38 Endocarditis, valve unspecified; N13.30 Unspecified hydronephrosis; N13.8 Other obstructive and reflux uropathy; Z20.822 Contact with and (suspected) exposure to COVID-19; C67.9 Malignant neoplasm of bladder, unspecified; S50.311A Abrasion of right elbow, initial encounter; W19.XXXA Unspecified fall, initial encounter; Y92.009 Unspecified place in unspecified non-institutional (private) residence as the place of occurrence of the external cause; I11.0 Hypertensive heart disease with heart failure; R53.1 Weakness; E78.5 Hyperlipidemia, unspecified; E11.9 Type 2 diabetes mellitus without complications; Z79.84 Long term (current) use of oral hypoglycemic drugs; G20 Parkinson's disease; Z79.4 Long term (current) use of insulin; E05.90 Thyrotoxicosis, unspecified without thyrotoxic crisis or storm; E87.6 Hypokalemia; Z66 Do not resuscitate; I95.1 Orthostatic hypotension; N28.9 Disorder of kidney and ureter, unspecified; R41.0 Disorientation, unspecified; Z87.891 Personal history of nicotine dependence; F02.80 Dementia in other diseases classified elsewhere, unspecified severity, without behavioral disturbance, psychotic disturbance, mood disturbance, and anxiety
CPT/HCPCS: 36415; 51702; 70450; 72125; 74177; 80048; 80053; 81001; 82550; 83690; 84145; 85025; 86850; 86900; 86901; 86920; 87040; 87086; 87633; 97162; 97166; 97530; 99285; A9270; J1170; J1815; J3370; P9016; Q9967; 81003